=== PATIENT | female | born 1970 | race Caucasian/White ===

== ENCOUNTER → 2016-06-05 | Outpatient (REF) | payer OTHER ==
[~2016-06-05] MED LIST: /ADVA50050 INH; ALBU17IN INH; ATARAX PO; BACL10TA2 PO; BACT800T OR; CLIN75CA TD; COMBAER6 INH; CYCL5TA PO; DEXI60CA PO; DOXY75CA3 PO; FLUC150T PO; FOLI1TAB PO; FOSI10TA PO; GABA-283 PO; GEMF600T PO; GLUC1000 PO; GLUC850T PO; HYDR25TA6 PO; K-TA1TAB PO; KEFL500C7 PO; KLOR10TA PO; LASI20TA PO; LASI80TA PO; LIDO3CRE14 TD; MOBI15TA PO; NEUR100C PO; NIZO2SHA TD; OMEP20TA7 PO; PRED20TA PO; ROBA500T PO; ROBA750T4 PO; SIMV40TA2 PO; SING10TA31 PO; SPIR25TA2 PO; TIZA1POW PO; TRAM50TA2 PO; TRAZ50TA PO; TRIA25CR TOP; VESI10TA PO; [UNRECOGNIZED DRUG - OTHER] PO; flexeril PO
[2016-06-05 12:43] LABS: ANION GAP 8 MEQ/L (8-16); BLOOD UREA NITROGEN 11 MG/DL (7-18); CALCIUM LEVEL 8.8 MG/DL (8.5-10.1); CARBON DIOXIDE LEVEL 29 MEQ/L (21-32); CHLORIDE LEVEL 101 MEQ/L (98-107); CREATININE FOR GFR 0.65 MG/DL (0.55-1.02); GLOMERULAR FILTRATION RATE > 60.0 (>58); GLUCOSE, FASTING 197 MG/DL (70-105); POTASSIUM SERUM 4.4 MEQ/L (3.5-5.1); SODIUM LEVEL 138 MEQ/L (136-145)
== END ==
LOC: M SFHCPLAZ 08:43
PROVIDERS: ATTEND Physician Assistant Medical
DX: E11.69 Type 2 diabetes mellitus with other specified complication (principal)

== ENCOUNTER → 2016-08-16 | Outpatient (REF) | payer OTHER ==
[~2016-08-16] MED LIST changes: +INVO100T PO
[2016-08-16 14:00] LABS: ANION GAP 10 MEQ/L (8-16); BLOOD UREA NITROGEN 12 MG/DL (7-18); CALCIUM LEVEL 8.5 MG/DL (8.5-10.1); CARBON DIOXIDE LEVEL 26 MEQ/L (21-32); CHLORIDE LEVEL 103 MEQ/L (98-107); GLOMERULAR FILTRATION RATE > 60.0 (>58); GLUCOSE, FASTING 166 MG/DL (70-105); POTASSIUM SERUM 4.1 MEQ/L (3.5-5.1); SODIUM LEVEL 139 MEQ/L (136-145)
== END ==
LOC: M SFHCPLAZ 09:07
PROVIDERS: ATTEND Physician Assistant Medical
DX: E11.69 Type 2 diabetes mellitus with other specified complication (principal)

== ENCOUNTER 2016-08-20 16:04 | Emergency (ER) | payer OTHER ==
[~2016-08-20] VITALS: Ht 160 cm; Wt 126.1 kg
[~2016-08-20 16:04] MED LIST changes: -INVO100T PO
[2016-08-20] MEDS ORDERED: INVO100T PO (16:19)
[2016-08-20 18:49] VITALS: BP 124/64
== END 2016-08-20 19:02 | disposition home or self-care (01) ==
LOC: M ED 17:15
DX: L73.2 Hidradenitis suppurativa (principal); G43.909 Migraine, unspecified, not intractable, without status migrainosus; R07.9 Chest pain, unspecified; E78.00 Pure hypercholesterolemia, unspecified; I10 Essential (primary) hypertension; J45.909 Unspecified asthma, uncomplicated; G47.30 Sleep apnea, unspecified; K21.9 Gastro-esophageal reflux disease without esophagitis; E11.9 Type 2 diabetes mellitus without complications; Z79.899 Other long term (current) drug therapy; Z88.8 Allergy status to other drugs, medicaments and biological substances; Z79.84 Long term (current) use of oral hypoglycemic drugs

== ENCOUNTER → 2016-08-20 | Outpatient (REF) | payer OTHER | LOC: M SFHCPLAZ 14:53 | PROVIDERS: ATTEND Physician Assistant Medical | DX: L73.2 Hidradenitis suppurativa (principal) ==

== ENCOUNTER → 2016-08-29 | Outpatient (CLI) | payer OTHER ==
[~2016-08-29] MED LIST changes: +INVO100T PO
--- NOTE | 2016-08-29 14:09 | REP ---
Clinical: Evaluate abscesses. Technique: Real time sandoval scale ultrasound examination using linear high frequency transducer Findings: Directed ultrasound examination of the left axillary region demonstrates to lymph nodes measuring 19 x 9 mm and 12 x 12 mm. Small cutaneous cystic lesions are identified measuring 4 x 2 x 4 mm and 3 x 3 x 2 mm along with an elongated complex/hypoechoic presumed collection measuring 30 x 10 x 4 mm. Impression: Cystic and hypoechoic areas described above may represent small abscesses and correlation with physical examination is recommended. Differential diagnosis includes infected sebaceous cysts or hair follicles. Signed by Amandeep Beckford MD 08/29/2016 02:01 P
== END ==
LOC: M RAD 10:53
PROVIDERS: ATTEND Physician Assistant Medical
DX: L73.2 Hidradenitis suppurativa (principal)

== ENCOUNTER → 2016-08-30 | Outpatient (REF) | payer OTHER | LOC: M SFHCPLAZ 14:18 | PROVIDERS: ATTEND Physician Assistant Medical | DX: L73.2 Hidradenitis suppurativa (principal) ==

== ENCOUNTER 2016-09-16 20:31 | Emergency (ER) | payer OTHER ==
[~2016-09-16] VITALS: Ht 157.5 cm; Wt 122.9 kg
[2016-09-16] MEDS ORDERED: COMBAER6 INH (20:51)
[2016-09-16] MEDS ORDERED: ARNU1INH IN (20:51)
[2016-09-16] MEDS ORDERED: SPIR25TA2 PO (20:51)
[2016-09-16] MEDS ORDERED: POTA20TA FT (20:51)
[2016-09-16] MEDS ORDERED: AMLO10TA2 PO (20:51)
[2016-09-16] MEDS ORDERED: ALOG6.25 PO (20:51)
[2016-09-16] MEDS ORDERED: CLAR1TAB2 PO (20:51)
[2016-09-16] MEDS ORDERED: ATOR40TA PO (20:51)
[2016-09-16] MEDS ORDERED: CELE20TA PO (20:51)
[2016-09-16] MEDS ORDERED: LISI-542 PO (20:51)
[2016-09-16] MEDS ORDERED: NORCO, ANEXSIA 5/325MG TABLET (HYDROcodone/ACETAMINOPHEN) PO ONE (21:30)
[2016-09-16] MEDS ORDERED: HYDR-3713 PO (22:04)
[2016-09-16 22:06] VITALS: BP 147/71
--- NOTE | 2016-09-18 07:55 | REP ---
Clinical: Trauma and swelling. Technique: AP, lateral, bilateral oblique and sunrise views of the left knee. Findings: Lateral view suggests patella or the with possible effusion. Clinical correlation is recommended. Unfused chronic changes to the tibial tuberosity are suggested less likely reflecting acute avulsion fracture and correlation is required. No other fracture dislocation identified or suggested. Impression: Acute and/or chronic changes as described above require correlation. Signed by Amandeep Beckford MD 09/18/2016 07:46 A
== END 2016-09-16 22:11 | disposition home or self-care (01) ==
LOC: M ED 21:20
DX: S83.512A Sprain of anterior cruciate ligament of left knee, initial encounter (principal); X50.0XXA Overexertion from strenuous movement or load, initial encounter; Y92.89 Other specified places as the place of occurrence of the external cause; Y93.89 Activity, other specified; Y99.8 Other external cause status; I50.9 Heart failure, unspecified; I10 Essential (primary) hypertension; J45.909 Unspecified asthma, uncomplicated; E11.9 Type 2 diabetes mellitus without complications; E78.00 Pure hypercholesterolemia, unspecified; G47.30 Sleep apnea, unspecified; G43.909 Migraine, unspecified, not intractable, without status migrainosus; Z79.899 Other long term (current) drug therapy; Z79.84 Long term (current) use of oral hypoglycemic drugs; Z88.8 Allergy status to other drugs, medicaments and biological substances; Z91.048 Other nonmedicinal substance allergy status; F17.210 Nicotine dependence, cigarettes, uncomplicated

== ENCOUNTER → 2016-09-19 | Outpatient (REF) | payer OTHER ==
[~2016-09-19] MED LIST changes: +ALOG6.25 PO; +AMLO10TA2 PO; +ARNU1INH IN; +ATOR40TA PO; +CELE20TA PO; +CLAR1TAB2 PO; +HYDR-3713 PO; +LISI-542 PO; +POTA20TA FT
== END ==
LOC: M SFHCPLAZ 11:30
PROVIDERS: ATTEND Physician Assistant Medical
DX: L73.2 Hidradenitis suppurativa (principal)

== ENCOUNTER → 2016-09-24 | Outpatient (CLI) | payer OTHER ==
--- NOTE | 2016-09-24 20:53 | REP ---
MRI LEFT KNEE: TECHNIQUE: Axial proton density fat saturation, sagittal proton density T2 STIR, water excitation, coronal proton density, proton density fat saturation. FINDINGS: There is degenerative signal seen in the posterior horn of the medial meniscus without a discrete tear. The cruciate and collateral ligaments are intact. The extensor mechanism is intact. The medial and lateral patellar retinacula are intact. Oval accessory ossicle was seen at the anterior tibial tubercle without acute edema. There is a suprapatellar plica. There is a small joint effusion. There is a small popliteal cyst, which appears somewhat complex and measures between 1 and 2 cm in diameter. Moderate chondromalacia is seen at the posterior aspect of the medial femoral condyle with mild subchondral cystic changes. There is mild diffuse chondromalacia elsewhere in the medial and lateral compartments. There is no bone marrow edema or occult fracture. There is a benign bone island in the lateral femoral condyle posteriorly. There is mild ill-defined diffuse soft tissue edema more superficially. IMPRESSION: Degenerative signal in the posterior horn of the medial meniscus without a meniscal tear. Cruciate and collateral ligaments intact. Accessory ossicle anterior tibial tubercle without acute edema. Moderate chondromalacia posterior aspect of the medial femoral condyle with subchondral cystic changes. Otherwise, mild diffuse chondromalacia in the medial and lateral joint compartments. There is a small joint effusion. There is a suprapatellar plica. There is a small popliteal cyst. Signed by Juan Madden MD 09/25/2016 05:22 P
== END ==
LOC: M RAD 18:24
PROVIDERS: ATTEND Orthopaedic Surgery
DX: M94.262 Chondromalacia, left knee (principal); M25.462 Effusion, left knee; M67.52 Plica syndrome, left knee; M71.22 Synovial cyst of popliteal space [Baker], left knee

== ENCOUNTER → 2017-01-24 | Outpatient (REF) | payer MEDICAID, OTHER ==
[~2017-01-24] MED LIST changes: -ATOR40TA PO; +ATOR40TA75 PO; -DEXI60CA PO; +DEXI60CA2 PO; +KEFL500C17 PO; -KEFL500C7 PO; -VESI10TA PO; +VESI10TA2 PO
== END ==
LOC: M SFHCPLAZ 12:56
PROVIDERS: ATTEND Physician Assistant Medical
DX: L73.2 Hidradenitis suppurativa (principal)

== ENCOUNTER → 2017-02-01 | Outpatient (CLI) | payer OTHER ==
--- NOTE | 2017-02-01 14:47 | REP ---
Chest x-ray: Two views. History: Neck pain . Comparison study: October 15, 2015 . Findings: The lungs are well inflated and free of infiltrate. The pleural angles are sharp. The heart size is normal. Pulmonary vasculature is not increased. No significant bony abnormality is seen. Impression: Negative chest x-ray. Signed by Franck Peñaloza MD 02/01/2017 11:10 A
== END ==
LOC: M RAD 10:41
PROVIDERS: ATTEND Physician Assistant Medical
DX: M54.2 Cervicalgia (principal); R07.81 Pleurodynia

== ENCOUNTER → 2017-02-28 | Outpatient (CLI) | payer OTHER ==
--- NOTE | 2017-03-01 00:43 | REP ---
Clinical: Cervicalgia . Technique: AP, lateral, flexion/extension, bilateral oblique, and open-mouth views. Findings: Alignment and lordosis is maintained. There is no evidence for acute fracture / compression injury or subluxation. Mild focal degenerative changes including spurring and minimal disc space narrowing at the C5-6 and C6-7 levels suggested. Oblique views demonstrate patent neural foramen. Open mouth view demonstrates normal C1-C2 articulation and odontoid process. Impression: Mild focal degenerative changes at the C6-7 and C5-6 levels. Signed by Aamndeep Beckford MD 03/01/2017 12:35 A
== END ==
LOC: M SMT 10:37
PROVIDERS: ATTEND Physician Assistant Medical
DX: M54.2 Cervicalgia (principal)

== ENCOUNTER 2017-03-30 23:01 | Emergency (ER) | payer OTHER ==
[~2017-03-30] VITALS: Ht 160 cm; Wt 54.2 kg
[2017-03-31] MEDS ORDERED: PERCOCET 5MG/325MG TAB PO ONE (00:15)
[2017-03-31 01:34] VITALS: BP 127/67
--- NOTE | 2017-03-31 14:29 | REP ---
Bilateral knee series: Five views. History: Injury. Findings: Five views are obtained. Four views of each knee. Comparison left knee radiographs are from September 16, 2016. 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 There is no evidence of knee fracture or subluxation on either side. Impression: No fracture seen. Signed by Franck Peñaloza MD 03/31/2017 08:08 A
== END 2017-03-31 01:44 | disposition home or self-care (01) ==
LOC: EDBD 23:01 → M ED 23:01
DX: M25.561 Pain in right knee (principal); M25.562 Pain in left knee; Z72.0 Tobacco use

== ENCOUNTER → 2017-05-20 | Outpatient (REF) | payer OTHER ==
[2017-05-20 11:46] LABS: BASO % 0.5 % (0.0-1.0); EOS # 0.2 10^3/uL (0.0-0.50); EOS % 2.3 % (0.0-3.0); IMMATURE GRANULOCYTE % 0.5 % (0-0); LYMPH # 2.8 10^3/uL (1.5-4.5); LYMPH % 32.6 % (24.0-44.0); MEAN CORPUSCULAR HEMOGLOBIN 30.5 pg (27.0-33.0); MEAN CORPUSCULAR VOLUME 92.3 fl (80.0-96.0); MONO # 0.7 10^3/uL (0.0-0.8); MONO % 8.3 % (0.0-5.0); NEUTROPHILS # 4.7 10^3/uL (1.8-7.7); NEUTROPHILS % 55.8 % (36.0-66.0); PLATELET COUNT, AUTOMATED 277 10^3/uL (150-450); WHITE BLOOD COUNT 8.4 10^3/uL (4.0-10.0)
[2017-05-20 12:26] LABS: ALBUMIN 3.4 GM/DL (3.2-5.2); ALBUMIN/GLOBULIN RATIO 0.97 (1.00-1.93); ALKALINE PHOSPHATASE 83 U/L (45-117); ALT/SGPT 35 U/L (12-78); ANION GAP 7 MEQ/L (8-16); AST/SGOT 14 U/L (7-37); BILIRUBIN,TOTAL 0.3 MG/DL (0.2-1.0); BLOOD UREA NITROGEN 17 MG/DL (7-18); CALCIUM LEVEL 8.5 MG/DL (8.5-10.1); CARBON DIOXIDE LEVEL 29 MEQ/L (21-32); CHLORIDE LEVEL 101 MEQ/L (98-107); CHOLESTEROL LEVEL 222 MG/DL (<200); CREATININE FOR GFR 0.58 MG/DL (0.55-1.02); FREE T4 0.91 NG/DL (0.76-1.46); GLOMERULAR FILTRATION RATE > 60.0 (>58); GLUCOSE, FASTING 162 MG/DL (70-105); POTASSIUM SERUM 4.3 MEQ/L (3.5-5.1); SODIUM LEVEL 137 MEQ/L (136-145); TOTAL PROTEIN 6.9 GM/DL (6.4-8.2); TRIGLYCERIDES LEVEL 199 MG/DL (<150)
== END ==
LOC: M SFHCPLAZ 09:25
PROVIDERS: ATTEND Physician Assistant Medical
DX: L73.2 Hidradenitis suppurativa (principal); E78.2 Mixed hyperlipidemia; I10 Essential (primary) hypertension

== ENCOUNTER → 2017-08-27 | Outpatient (REF) | payer OTHER | LOC: M SFHCPLAZ 11:37 | DX: L02.91 Cutaneous abscess, unspecified (principal) | CPT/HCPCS: 87186 ==

== ENCOUNTER 2017-08-28 15:53 | Emergency (ER) | payer OTHER ==
[2017-08-28 16:22] LABS: BASO % 0.5 % (0.0-1.0); EOS % 0.7 % (0.0-3.0); HEMATOCRIT 43.7 % (36.0-47.0); HEMOGLOBIN 14.9 g/dl (12.0-16.0); IMMATURE GRANULOCYTE % 0.5 % (0-3.0); LYMPH # 0.9 10^3/uL (1.5-4.5); LYMPH % 15.1 % (24.0-44.0); MEAN CORPUSCULAR HEMOGLOBIN 31.2 pg (27.0-33.0); MEAN CORPUSCULAR HGB CONC 34.1 g/dl (32.0-36.5); MEAN CORPUSCULAR VOLUME 91.4 fl (80.0-96.0); MONO # 0.7 10^3/uL (0.0-0.8); MONO % 10.9 % (0.0-5.0); NEUTROPHILS # 4.4 10^3/uL (1.8-7.7); NEUTROPHILS % 72.3 % (36.0-66.0); PLATELET COUNT, AUTOMATED 189 10^3/uL (150-450); RED BLOOD COUNT 4.78 10^6/uL (4.00-5.40); RED CELL DISTRIBUTION WIDTH 13.4 % (11.5-14.5)
[2017-08-28 16:53] LABS: ALBUMIN 3.6 GM/DL (3.2-5.2); ALBUMIN/GLOBULIN RATIO 1.03 (1.00-1.93); ALKALINE PHOSPHATASE 93 U/L (45-117); ALT/SGPT 69 U/L (12-78); ANION GAP 7 MEQ/L (8-16); AST/SGOT 48 U/L (7-37); BILIRUBIN,DIRECT < 0.1 MG/DL (0.0-0.2); BILIRUBIN,TOTAL 0.3 MG/DL (0.2-1.0); BLOOD UREA NITROGEN 10 MG/DL (7-18); CALCIUM LEVEL 8.4 MG/DL (8.5-10.1); CARBON DIOXIDE LEVEL 29 MEQ/L (21-32); CHLORIDE LEVEL 102 MEQ/L (98-107); CPK CREATINE PHOSPHOKINASE 216 U/L (26-192); CREATININE FOR GFR 0.73 MG/DL (0.55-1.30); GLOMERULAR FILTRATION RATE > 60.0 (>58); GLUCOSE, FASTING 168 MG/DL (70-100); LIPASE 101 U/L (73-393); POTASSIUM SERUM 4.1 MEQ/L (3.5-5.1); SODIUM LEVEL 138 MEQ/L (136-145); TOTAL PROTEIN 7.1 GM/DL (6.4-8.2); TROPONIN I < 0.02 NG/ML (< 0.10)
[2017-08-28 16:59] LABS: CK-MB VALUE MASS < 1.0 NG/ML (<3.6); MB/CK RELATIVE INDEX 0.46 (< OR =4); NT-PRO BNP 20 PG/ML (<125)
[2017-08-28 17:14] LABS: LACTIC ACID SEPSIS PROTOCOL 1.6 MMOL/L (0.4-2.0)
[2017-08-28] MEDS: IPRATROPIUM 0.5MG/ALBUTEROL 2.5MG INH SOL UD 3ML (DUONEB)(J7620) NEB (17:37)
[2017-08-28] MEDS: methylPREDNISolone INJ 125 MG/2 ML VIAL (J2930) IV (17:47)
[2017-08-28] MEDS: ALBUTEROL SULFATE 2.5 MG/0.5 ML INH NEB SOLN NEB (18:11)
[2017-08-28] MEDS: ACETAMINOPHEN 325 MG TAB PO (18:15)
[2017-08-28] MEDS: NS 1,000 ML IV (18:45)
[2017-08-28 19:09] LABS: INFLUENZA A AMPLIFICATION NEGATIVE (NEGATIVE); INFLUENZA B AMPLIFICATION POSITIVE (NEGATIVE)
[2017-08-28 22:36] LABS: CK-MB VALUE MASS < 1.0 NG/ML (<3.6); CPK CREATINE PHOSPHOKINASE 193 U/L (26-192); MB/CK RELATIVE INDEX 0.51 (< OR =4); TROPONIN I < 0.02 NG/ML (< 0.10)
== END 2017-08-29 00:26 | disposition home or self-care (01) ==
LOC: M ED 08-29 00:26
DX: J45.909 Unspecified asthma, uncomplicated (principal); J11.1 Influenza due to unidentified influenza virus with other respiratory manifestations; E11.9 Type 2 diabetes mellitus without complications; I10 Essential (primary) hypertension; E78.5 Hyperlipidemia, unspecified; G47.30 Sleep apnea, unspecified; F17.200 Nicotine dependence, unspecified, uncomplicated; Z88.8 Allergy status to other drugs, medicaments and biological substances; Z79.84 Long term (current) use of oral hypoglycemic drugs; Z79.899 Other long term (current) drug therapy; Z79.51 Long term (current) use of inhaled steroids
CPT/HCPCS: J2930

== ENCOUNTER → 2017-09-03 | Outpatient (REF) | payer OTHER ==
[2017-09-03 12:02] LABS: BASO % 0.2 % (0.0-1.0); EOS # 0.1 10^3/uL (0.0-0.50); EOS % 1.1 % (0.0-3.0); HEMATOCRIT 40.7 % (36.0-47.0); HEMOGLOBIN 13.8 g/dl (12.0-15.5); IMMATURE GRANULOCYTE % 0.9 % (0-3.0); LYMPH # 2.6 10^3/uL (1.5-4.5); LYMPH % 28.6 % (24.0-44.0); MEAN CORPUSCULAR HEMOGLOBIN 30.7 pg (27.0-33.0); MEAN CORPUSCULAR HGB CONC 33.9 g/dl (32.0-36.5); MEAN CORPUSCULAR VOLUME 90.4 fl (80.0-96.0); MONO # 0.6 10^3/uL (0.0-0.8); MONO % 6.3 % (0.0-5.0); NEUTROPHILS # 5.6 10^3/uL (1.8-7.7); NEUTROPHILS % 62.9 % (36.0-66.0); PLATELET COUNT, AUTOMATED 243 10^3/uL (150-450); RED CELL DISTRIBUTION WIDTH 13.1 % (11.5-14.5)
[2017-09-03 12:12] LABS: INR 0.84; PROTHROMBIN TIME 11.5 SECONDS (12.4-14.5)
[2017-09-03 12:13] LABS: PARTIAL THROMBOPLASTIN TIME 30.3 SECONDS (26.8-37.9)
== END ==
LOC: M SFHCPLAZ 09:40
DX: R58 Hemorrhage, not elsewhere classified (principal)

== ENCOUNTER → 2017-12-17 | Outpatient (CLI) | payer OTHER ==
[2017-12-17 11:13] LABS: ALBUMIN 3.3 GM/DL (3.2-5.2); ALBUMIN/GLOBULIN RATIO 0.94 (1.00-1.93); ALKALINE PHOSPHATASE 86 U/L (45-117); ALT/SGPT 47 U/L (12-78); ANION GAP 7 MEQ/L (8-16); AST/SGOT 24 U/L (7-37); BILIRUBIN,TOTAL 0.3 MG/DL (0.2-1.0); BLOOD UREA NITROGEN 12 MG/DL (7-18); CALCIUM LEVEL 8.3 MG/DL (8.5-10.1); CARBON DIOXIDE LEVEL 27 MEQ/L (21-32); CHLORIDE LEVEL 106 MEQ/L (98-107); CHOLESTEROL LEVEL 222 MG/DL (<200); CREATININE FOR GFR 0.61 MG/DL (0.55-1.30); GLOMERULAR FILTRATION RATE > 60.0 (>58); GLUCOSE, FASTING 207 MG/DL (70-100); HDL CHOLESTEROL 37 MG/DL (>40); NON-HDL-C 185 MG/DL; POTASSIUM SERUM 4.2 MEQ/L (3.5-5.1); SODIUM LEVEL 140 MEQ/L (136-145); TOTAL PROTEIN 6.8 GM/DL (6.4-8.2); TRIGLYCERIDES LEVEL 300 MG/DL (<150)
[2017-12-17 11:32] LABS: ESTIMATED AVERAGE GLUCOSE 192 MG/DL (60-110); HEMOGLOBIN A1c 8.3 %
[2017-12-17 11:40] LABS: MAU/CREAT RATIO 202.5 MCG/MG (0.0-30.0)
== END ==
LOC: M LAB 10:06
DX: I10 Essential (primary) hypertension (principal); E78.2 Mixed hyperlipidemia; E11.69 Type 2 diabetes mellitus with other specified complication
CPT/HCPCS: 80053

== ENCOUNTER → 2018-07-10 | Outpatient (REF) | payer OTHER ==
[~2018-07-10] MED LIST changes: +ALBU83IN INH; -AMLO10TA2 PO; +AMLO10TA5 PO; +BREO1INH INH; -GABA-283 PO; +GABA-845 PO; -GEMF600T PO; +GEMF600T5 PO; +KLOR20TA42 FT; +NEBUMIS2 XX; +OSEL75CA PO; -POTA20TA FT; +SPIR-10 PO; -SPIR25TA2 PO
[2018-07-10 13:43] LABS: BASO % 0.2 % (0.0-1.0); EOS # 0.2 10^3/uL (0.0-0.50); EOS % 2.2 % (0.0-3.0); HEMATOCRIT 46.5 % (36.0-47.0); HEMOGLOBIN 16.1 g/dl (12.0-15.5); LYMPH # 2.8 10^3/uL (1.5-4.5); LYMPH % 32.1 % (24.0-44.0); MEAN CORPUSCULAR HEMOGLOBIN 31.4 pg (27.0-33.0); MEAN CORPUSCULAR HGB CONC 34.6 g/dl (32.0-36.5); MEAN CORPUSCULAR VOLUME 90.8 fl (80.0-96.0); MONO # 0.6 10^3/uL (0.0-0.8); MONO % 6.6 % (0.0-5.0); NEUTROPHILS % 58.2 % (36.0-66.0); PLATELET COUNT, AUTOMATED 277 10^3/uL (150-450); RED BLOOD COUNT 5.12 10^6/uL (4.00-5.40); WHITE BLOOD COUNT 8.6 10^3/uL (4.0-10.0)
[2018-07-10 13:57] LABS: APPEARANCE, URINE HAZY (CLEAR); BACTERIA, URINE AUTO NEGATIVE (NEGATIVE); BILIRUBIN, URINE AUTO NEGATIVE (NEGATIVE); BLOOD, URINE BLOOD NEGATIVE (NEGATIVE); COLOR, URINE YELLOW (YELLOW); GLUCOSE, URINE (UA) AUTO 3+ mg/dL (NEGATIVE); KETONE, URINE AUTO NEGATIVE (NEGATIVE); LEUKOCYTE ESTERASE, URINE AUTO NEGATIVE (NEGATIVE); MUCUS, URINE SMALL (NEGATIVE); NITRITE, URINE AUTO NEGATIVE (NEGATIVE); PROTEIN, URINE AUTO 2+ mg/dL (NEGATIVE); RBC, URINE AUTO 6 /HPF (0-3); SPECIFIC GRAVITY URINE AUTO 1.032 (1.002-1.035); SQUAMOUS EPITHELIAL CELL UR AU 8 /HPF (0-6); UROBILINOGEN, URINE AUTO 0.2 mg/dL (0.0-2.0); WBC, URINE AUTO 2 /HPF (0-3)
[2018-07-10 14:06] LABS: HEMOGLOBIN A1c 10.6 %
[2018-07-10 14:21] LABS: ALBUMIN 3.3 GM/DL (3.2-5.2); ALT/SGPT 43 U/L (12-78); BILIRUBIN,TOTAL 0.4 MG/DL (0.2-1.0); BLOOD UREA NITROGEN 10 MG/DL (7-18); CALCIUM LEVEL 8.3 MG/DL (8.5-10.1); CARBON DIOXIDE LEVEL 27 MEQ/L (21-32); CHLORIDE LEVEL 99 MEQ/L (98-107); CREATININE FOR GFR 0.58 MG/DL (0.55-1.30); FREE T4 0.95 NG/DL (0.76-1.46); GLOMERULAR FILTRATION RATE > 60.0 (>58); GLUCOSE, FASTING 296 MG/DL (70-100); POTASSIUM SERUM 4.5 MEQ/L (3.5-5.1); SODIUM LEVEL 135 MEQ/L (136-145); TOTAL PROTEIN 6.7 GM/DL (6.4-8.2)
[2018-07-10 14:29] LABS: MAU/CREAT RATIO 446.8 MCG/MG (0.0-30.0)
== END ==
LOC: M SFHCPLAZ 12:10
PROVIDERS: ATTEND Physician Assistant Medical
DX: E66.9 Obesity, unspecified (principal); E11.69 Type 2 diabetes mellitus with other specified complication; L73.2 Hidradenitis suppurativa

== ENCOUNTER → 2018-07-21 | Outpatient (REF) | payer OTHER ==
[2018-07-21 16:36] LABS: BLOOD UREA NITROGEN 9 MG/DL (7-18); CALCIUM LEVEL 8.6 MG/DL (8.5-10.1); CARBON DIOXIDE LEVEL 26 MEQ/L (21-32); CHLORIDE LEVEL 101 MEQ/L (98-107); CREATININE FOR GFR 0.61 MG/DL (0.55-1.30); GLOMERULAR FILTRATION RATE > 60.0 (>58); GLUCOSE, FASTING 245 MG/DL (70-100); MAGNESIUM LEVEL 1.8 MG/DL (1.8-2.4); POTASSIUM SERUM 4.3 MEQ/L (3.5-5.1); SODIUM LEVEL 136 MEQ/L (136-145)
== END ==
LOC: M LABDRAWP 13:20
PROVIDERS: ATTEND Physician Assistant Medical
DX: E87.1 Hypo-osmolality and hyponatremia (principal)

== ENCOUNTER → 2018-08-14 | Outpatient (CLI) | payer OTHER ==
--- NOTE | 2018-08-14 12:56 | REPMRS ---
Patient History The patient states she had a clinical breast exam in 08/2018.07/22 Family history of ovarian cancer in mother, breast cancer at age 50 in maternal aunt. Digital Woman Screen Mammo: August 14, 2018 - Exam #: [id number] Bilateral CC and MLO view(s) were taken. Technologist: Diane Walden, Technologist Prior study comparison: May 18, 2014, bilateral digital mammo screening bilat, performed at [facility]. FINDINGS: There are scattered fibroglandular densities. There has been no change in the appearance of the mammogram from the prior studies. There is a mild amount of residual fibroglandular tissue which is fairly symmetric. There is no interval development of dominant mass, architectural distortion, or clustered microcalcification suggestive of malignancy. There are two benign appearing intramammary nodes in the upper outer quadrant of the right breast. Scattered lymph nodes are seen in the axillae. Large coarse benign appearing calcifications are present. 3-D tomosynthesis shows no additional findings. No significant changes when compared with prior studies. Assessment: BI-RADS/ACR category 2 mammogram. Benign Findings. Recommendation Routine screening mammogram in 1 year (for women over age 40). This mammogram was interpreted with the aid of an FDA-approved computer-aided dectection system. A. Negative x-ray reports should not delay biopsy if a dominant or clinically suspicious mass is present. B. Four to eight percent of cancers are not identified by mammography. C. Adenosis and dense breast may obscure an underlying neoplasm. Electronically Signed By: Pito Son MD 08/14/18 [id number]
== END ==
LOC: M WHC 09:23
PROVIDERS: ATTEND Family Medicine
DX: Z12.31 Encounter for screening mammogram for malignant neoplasm of breast (principal)

== ENCOUNTER → 2018-10-14 | Outpatient (CLI) | payer OTHER ==
[~2018-10-14] MED LIST changes: -/ADVA50050 INH; +ADVA1AER2 INH; -CYCL5TA PO; +CYCL5TAB5 PO
--- NOTE | 2018-10-15 01:59 | REP ---
Clinical: Neck pain. Muscle spasm. Technique: AP, lateral, flexion/extension, bilateral oblique, open-mouth, and swimmer's views of the cervical spine. Findings: Mild/moderate focal degenerative disc osteophyte complex at C6-7 and C5-6 minimal disc space narrowing. Remainder of the examination is normal for age. C1-C2 articulation and odontoid process are intact. Neural foramen are patent. Impression: Mild/early moderate focal degenerative changes at C6-7 and lesser C5-6. Electronically Signed by Amandeep Beckford MD 10/15/2018 01:51 A
== END ==
LOC: M RAD 12:11
PROVIDERS: ATTEND Physician Assistant Medical
DX: M25.78 Osteophyte, vertebrae (principal); M50.323 Other cervical disc degeneration at C6-C7 level; M50.322 Other cervical disc degeneration at C5-C6 level

== ENCOUNTER → 2018-11-14 | Outpatient (CLI) | payer OTHER ==
[~2018-11-14] MED LIST changes: +BACL10TA2; +BASA100I; +BREO1INH3; +CITA20TA6; +FURO80TA2; +GABA-843; +LISI10TA4; +METF500T13; +MONT10TA2
--- NOTE | 2018-11-18 07:57 | SLEEPCENT ---
DATE OF PROCEDURE: 11/14/2018 ORDERED BY: KEIKO Myrick Nocturnal polysomnography was performed for the titration of pressure therapy in this patient with obstructive sleep apnea syndrome. Apnea-hypopnea index of 21.3. For testing, a [employer] Simplus full face mask of small size was used, initial pressure of 12 was applied to the circuit and the lights were extinguished. 8 hours and 10 minutes of data were reviewed. There were 418 minutes of sleep identified. Sleep latency was normal at 14.5 minutes. Rapid eye movement (REM) latency was mildly delayed at 130.5 minutes. Sleep architecture was improved with optimal pressure therapy. There were four REM cycles noted. Overall sleep efficiency was 86.9%. The electrocardiogram showed a sinus rhythm with an average heart rate of 82 beats per minute. EEG showed reasonably normal waveforms for awake and sleep. Respiratory events were best palliated with CPAP at a pressure of +16. There was some activity noted in the limb leads but arousals were few. IMPRESSION: Obstructive sleep apnea syndrome (G47.33). RECOMMENDATION: Nightly use of pressure therapy, 16 cm of water.
== END ==
LOC: M SLEEP 20:00
PROVIDERS: ATTEND Nurse Practitioner Family
DX: G47.33 Obstructive sleep apnea (adult) (pediatric) (principal)

== ENCOUNTER → 2018-11-28 | Outpatient (REF) | payer OTHER ==
[~2018-11-28] MED LIST changes: -BACL10TA2; -BASA100I; -BREO1INH3; -CITA20TA6; -FURO80TA2; -GABA-843; -LISI10TA4; -METF500T13; -MONT10TA2
[2018-11-28 12:16] LABS: BASO % 0.4 % (0.0-1.0); EOS # 0.8 10^3/uL (0.0-0.50); EOS % 10.2 % (0.0-3.0); HEMATOCRIT 43.9 % (36.0-47.0); HEMOGLOBIN 14.7 g/dl (12.0-15.5); LYMPH # 2.2 10^3/uL (1.5-4.5); LYMPH % 27.6 % (24.0-44.0); MEAN CORPUSCULAR HEMOGLOBIN 31.5 pg (27.0-33.0); MEAN CORPUSCULAR HGB CONC 33.5 g/dl (32.0-36.5); MONO # 0.6 10^3/uL (0.0-0.8); MONO % 7.6 % (0.0-5.0); NEUTROPHILS # 4.4 10^3/uL (1.8-7.7); NEUTROPHILS % 53.6 % (36.0-66.0); PLATELET COUNT, AUTOMATED 248 10^3/uL (150-450); RED BLOOD COUNT 4.67 10^6/uL (4.00-5.40); WHITE BLOOD COUNT 8.1 10^3/uL (4.0-10.0)
[2018-11-28 12:32] LABS: ALBUMIN 3.3 GM/DL (3.2-5.2); ALT/SGPT 39 U/L (12-78); BILIRUBIN,TOTAL 0.3 MG/DL (0.2-1.0); BLOOD UREA NITROGEN 12 MG/DL (7-18); CALCIUM LEVEL 8.7 MG/DL (8.5-10.1); CARBON DIOXIDE LEVEL 28 MEQ/L (21-32); CHLORIDE LEVEL 103 MEQ/L (98-107); CHOLESTEROL LEVEL 142 MG/DL (<200); CHOLESTEROL RISK RATIO 4.057 (<5); CPK CREATINE PHOSPHOKINASE 72 U/L (26-192); CREATININE FOR GFR 0.62 MG/DL (0.55-1.30); FERRITIN 158 NG/ML (8-252); FREE T4 1.02 NG/DL (0.76-1.46); GLOMERULAR FILTRATION RATE > 60.0 (>58); GLUCOSE, FASTING 201 MG/DL (70-100); HDL CHOLESTEROL 35 MG/DL (>40); IRON (FE) 82 UG/DL (50-170); LDL CHOLESTEROL 74 MG/DL (<100); NON-HDL-C 107 MG/DL; PERCENT SATURATION 26.5 % (13.2-45.0); SODIUM LEVEL 139 MEQ/L (136-145); TOTAL IRON BINDING CAPACITY 310 UG/DL (250-450); TOTAL PROTEIN 6.5 GM/DL (6.4-8.2); TRIGLYCERIDES LEVEL 164 MG/DL (<150)
[2018-11-28 12:57] LABS: HEMOGLOBIN A1c 8.8 %
== END ==
LOC: M SFHCPLAZ 09:06
PROVIDERS: ATTEND Physician Assistant Medical
DX: G25.81 Restless legs syndrome (principal); E78.2 Mixed hyperlipidemia; E11.69 Type 2 diabetes mellitus with other specified complication; F32.9 Major depressive disorder, single episode, unspecified

== ENCOUNTER 2018-12-23 23:10 | Emergency (ER) | payer OTHER, SELFPAY ==
[~2018-12-23] VITALS: Ht 160 cm; Wt 126.2 kg
[2018-12-23] MEDS ORDERED: CITA20TA6 (23:21)
[2018-12-23] MEDS ORDERED: LISI10TA4 (23:21)
[2018-12-23] MEDS ORDERED: FURO80TA2 (23:21)
[2018-12-23] MEDS ORDERED: BACL10TA2 (23:21)
[2018-12-23] MEDS ORDERED: METF500T13 (23:21)
[2018-12-23] MEDS ORDERED: BASA100I (23:21)
[2018-12-23] MEDS ORDERED: BREO1INH3 (23:21)
[2018-12-23] MEDS ORDERED: MONT10TA2 (23:21)
[2018-12-23] MEDS ORDERED: GABA-843 (23:21)
[2018-12-23] MEDS ORDERED: CELE20TA PO (23:21)
[2018-12-24] MEDS ORDERED: ACETAMINOPHEN 325 MG TAB PO ONE (00:45)
[2018-12-24 02:06] VITALS: BP 130/74
--- NOTE | 2018-12-24 03:24 | REP ---
Clinical: Trauma . Technique: AP, lateral, bilateral oblique views of the left elbow. Findings: No acute fracture or dislocation is appreciated. Joint spaces and surrounding soft tissues appear normal. Lateral view demonstrates normal positioning to the anterior and posterior fat pads without evidence for effusion/hemarthrosis. No subcutaneous emphysema or foreign body identified. Impression: Normal left elbow radiographs. Electronically Signed by Amandeep Beckford MD 12/24/2018 03:15 A
== END 2018-12-24 02:10 | disposition home or self-care (01) ==
LOC: M ED 23:10
DX: S53.402A Unspecified sprain of left elbow, initial encounter (principal); X50.1XXA Overexertion from prolonged static or awkward postures, initial encounter; Y92.89 Other specified places as the place of occurrence of the external cause; I11.0 Hypertensive heart disease with heart failure; I50.9 Heart failure, unspecified; E78.5 Hyperlipidemia, unspecified; J44.9 Chronic obstructive pulmonary disease, unspecified; F17.200 Nicotine dependence, unspecified, uncomplicated; Z88.8 Allergy status to other drugs, medicaments and biological substances; Z79.899 Other long term (current) drug therapy; Z79.84 Long term (current) use of oral hypoglycemic drugs; Z79.51 Long term (current) use of inhaled steroids

== ENCOUNTER 2019-03-05 18:22 | Emergency (ER) | payer MEDICAID, OTHER, SELFPAY ==
[~2019-03-05] VITALS: Ht 160 cm; Wt 126.4 kg
[~2019-03-05 18:22] MED LIST changes: -ARNU1INH IN; +ARNU1INH INH; +BASA100I; +BREO1INH3; +CITA20TA6; +FURO80TA2; +GABA-843; +LISI10TA4; +METF500T13; +MONT10TA2
[2019-03-05 19:03] LABS: BASO % 0.6 % (0.0-1.0); EOS # 0.1 10^3/uL (0.0-0.5); EOS % 1.1 % (0.0-3.0); HEMOGLOBIN 15.7 g/dl (12.0-15.5); LYMPH # 1.2 10^3/uL (1.5-5.0); LYMPH % 17.7 % (24.0-44.0); MEAN CORPUSCULAR HEMOGLOBIN 31.8 pg (27.0-33.0); MEAN CORPUSCULAR HGB CONC 34.1 g/dl (32.0-36.5); MEAN CORPUSCULAR VOLUME 93.1 fl (80.0-96.0); MONO # 0.7 10^3/uL (0.0-0.8); MONO % 10.4 % (0.0-5.0); NEUTROPHILS # 4.6 10^3/uL (1.5-8.5); NEUTROPHILS % 69.7 % (36.0-66.0); PLATELET COUNT, AUTOMATED 231 10^3/uL (150-450); RED BLOOD COUNT 4.94 10^6/uL (4.00-5.40); WHITE BLOOD COUNT 6.7 10^3/uL (4.0-10.0)
[2019-03-05] MEDS ORDERED: LANTINJ4 SQ (19:03)
--- NOTE | 2019-03-05 19:16 | ECGEPIP ---
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
[2019-03-05 19:30] LABS: BLOOD UREA NITROGEN 14 MG/DL (7-18); CALCIUM LEVEL 8.9 MG/DL (8.5-10.1); CARBON DIOXIDE LEVEL 26 MEQ/L (21-32); CHLORIDE LEVEL 103 MEQ/L (98-107); CK-MB VALUE MASS 1.1 NG/ML (<3.6); CPK CREATINE PHOSPHOKINASE 100 U/L (26-192); CREATININE FOR GFR 0.69 MG/DL (0.55-1.30); GLOMERULAR FILTRATION RATE > 60.0 (>58); GLUCOSE, FASTING 184 MG/DL (70-100); NT-PRO BNP 47 PG/ML (<125); POTASSIUM SERUM 4.1 MEQ/L (3.5-5.1); SODIUM LEVEL 136 MEQ/L (136-145); TROPONIN I < 0.02 NG/ML (< 0.10)
--- NOTE | 2019-03-05 19:58 | REP ---
Portable chest, 07:07 p.m., single AP view with the patient upright: Comparisons are the PA and lateral chest of 02/01/2017 and portable chest of 08/28/2017. There is increased density inferomedially in the right lung. This is nonspecific and could be artifact from superimposed clothing or could represent an infiltrate. The remainder the lung horner are clear. Cardiac size is normal. The wander, mediastinum, skeletal structures are. Impression: Non specific increased density inferomedially in the right lung. Electronically Signed by Juan Jeff MD 03/05/2019 07:49 P
[2019-03-05] MEDS ORDERED: IPRATROPIUM 0.5MG/ALBUTEROL 2.5MG INH SOL UD 3ML (DUONEB)(J7620) NEB ONE (20:00)
[2019-03-05] MEDS ORDERED: NS 500 ML IV ONE (20:00)
[2019-03-05] MEDS ORDERED: ACETAMINOPHEN TAB 650MG DOSE (2X325MG) PO ONE (20:00)
[2019-03-05 20:40] LABS: INFLUENZA A AMPLIFICATION NEGATIVE (NEGATIVE); INFLUENZA B AMPLIFICATION NEGATIVE (NEGATIVE)
[2019-03-05] MEDS ORDERED: LevoFLOXacin 750 MG TABLET PO ONE (21:45)
[2019-03-05] MEDS ORDERED: LEVA750T7 PO (21:56)
[2019-03-05 22:15] VITALS: BP 129/60
== END 2019-03-05 22:47 | disposition home or self-care (01) ==
LOC: M ED 18:22
DX: J18.9 Pneumonia, unspecified organism (principal); R00.0 Tachycardia, unspecified; E11.9 Type 2 diabetes mellitus without complications; J44.9 Chronic obstructive pulmonary disease, unspecified; F17.200 Nicotine dependence, unspecified, uncomplicated; Z79.4 Long term (current) use of insulin; Z79.899 Other long term (current) drug therapy; Z88.1 Allergy status to other antibiotic agents; Z88.8 Allergy status to other drugs, medicaments and biological substances

== ENCOUNTER 2019-03-10 12:56 | Inpatient (IN) | payer OTHER ==
[~2019-03-10] VITALS: Ht 160 cm; Wt 121.8 kg
[2019-03-10] VITALS (12 sets, daily range): BP systolic 70–158; BP diastolic 50–93; O2SAT 93
[~2019-03-10 12:56] MED LIST changes: +LANTINJ4 SQ; +LEVA750T7 PO
[2019-03-10] MEDS ORDERED: CLIN1SOL TOP (13:15)
[2019-03-10] MEDS ORDERED: LANS30CA93 PO (13:15)
[2019-03-10] MEDS ORDERED: LEVO750T13 PO (13:15)
[2019-03-10] MEDS ORDERED: IPRATROPIUM 0.5MG/ALBUTEROL 2.5MG INH SOL UD 3ML (DUONEB)(J7620) NEB ONE (13:30)
[2019-03-10] MEDS ORDERED: LISI10TA4 PO (14:22)
[2019-03-10] MEDS ORDERED: ACET-897 PO (14:22)
[2019-03-10] MEDS ORDERED: ALBU83IN INH (14:22)
[2019-03-10] MEDS ORDERED: GABA-843 PO (14:22)
[2019-03-10] MEDS ORDERED: RIFA300C3 PO (14:22)
[2019-03-10] MEDS ORDERED: TOPI25CA3 PO (14:22)
[2019-03-10] MEDS ORDERED: LORA-622 PO (14:29)
[2019-03-10] MEDS ORDERED: METF500T13 PO (14:29)
[2019-03-10] MEDS ORDERED: MONT10TA2 PO (14:29)
[2019-03-10] MEDS ORDERED: GLUCAGON FOR INJ 1 MG VIAL (J1610) SC PRN (14:45)
[2019-03-10] MEDS ORDERED: ACETAMINOPHEN TAB 650MG DOSE (2X325MG) PO PRN (14:45)
[2019-03-10] MEDS ORDERED: GLUCOSE 4 GM CHEW TABLET PO PRN (14:45)
[2019-03-10] MEDS ORDERED: MOM 30ML SUSPENSION UDC PO PRN (14:45)
[2019-03-10] MEDS ORDERED: LEVALBUTEROL 1.25 MG/0.5 ML CONCENTRATE NEB INH PRN (14:45)
[2019-03-10] MEDS ORDERED: DEXTROSE 50% 50 ML SYRINGE IV PRN (14:45)
[2019-03-10] MEDS ORDERED: AZITHROMYCIN INJ 500 MG, VIAL MATE ADAPTER 1 EACH in D5W 250 ML IV SCH (15:00)
[2019-03-10] MEDS ORDERED: methylPREDNISolone INJ 125 MG/2 ML VIAL (J2930) IV SCH (15:00)
[2019-03-10 15:02] LABS: HEMATOCRIT 45.3 % (36.0-47.0); HEMOGLOBIN 15.2 g/dl (12.0-15.5); MEAN CORPUSCULAR HEMOGLOBIN 31.5 pg (27.0-33.0); MEAN CORPUSCULAR HGB CONC 33.6 g/dl (32.0-36.5); PLATELET COUNT, AUTOMATED 291 10^3/uL (150-450); RED BLOOD COUNT 4.82 10^6/uL (4.00-5.40); WHITE BLOOD COUNT 7.8 10^3/uL (4.0-10.0)
[2019-03-10 15:15] LABS: ABG BASE EXCESS 2.2 (-2.0-2.0); ABG HCO3 26.7 MEQ/L (22.0-26.0); ABG O2 SATURATION 92.3 % (95.0-99.0); ABG PARTIAL PRESSURE CO2 41.5 mmHg (35.0-45.0); ABG PARTIAL PRESSURE O2 61.6 mmHg (75.0-100.0); ABG STANDARD HCO3 26.2 MEQ/L (22.0-26.0); ABG pH (ARTERIAL) 7.427 UNITS (7.350-7.450)
--- NOTE | 2019-03-10 15:28 | REP ---
PA and lateral chest: Comparison is 03/05/2019. The lung horner are clear. Prominent breast shadows superimposed lower lung zones artifactually increasing density bilaterally on the PA view . Cardiac size is normal. The wander, mediastinum, skeletal structures are unremarkable. Impression: Negative PA and lateral chest. Electronically Signed by Juan Jeff MD 03/10/2019 03:19 P
[2019-03-10 15:32] LABS: ALT/SGPT 47 U/L (12-78); BILIRUBIN,TOTAL 0.3 MG/DL (0.2-1.0); BLOOD UREA NITROGEN 12 MG/DL (7-18); CALCIUM LEVEL 8.8 MG/DL (8.5-10.1); CARBON DIOXIDE LEVEL 31 MEQ/L (21-32); CHLORIDE LEVEL 105 MEQ/L (98-107); CREATININE FOR GFR 0.56 MG/DL (0.55-1.30); GLOMERULAR FILTRATION RATE > 60.0 (>58); GLUCOSE, FASTING 127 MG/DL (70-100); POTASSIUM SERUM 4.2 MEQ/L (3.5-5.1); SODIUM LEVEL 141 MEQ/L (136-145); TOTAL PROTEIN 6.7 GM/DL (6.4-8.2)
[2019-03-10] MEDS ORDERED: cefTRIAXone SOD 1 GM in D5W MINI-BAG PLUS 50 ML IV SCH (16:00)
[2019-03-10] MEDS ORDERED: HumaLOG INSULIN (NovoLOG) PER UNIT SC SCH ×2 (17:30→21:00)
[2019-03-10] MEDS ORDERED: diphenhydrAMINE INJ 50MG/ML VIAL (J1200) As Ordered ONE (17:43)
[2019-03-10] MEDS ORDERED: diphenhydrAMINE INJ 50MG/ML VIAL (J1200) IV ONE (18:00)
[2019-03-10] MEDS ORDERED: RACEPINEPHrine 2.25 % UD INHA INH ONE (18:05)
[2019-03-10] MEDS ORDERED: methylPREDNISolone INJ 125 MG/2 ML VIAL (J2930) As Ordered ONE (18:07)
[2019-03-10] MEDS ORDERED: FAMOTIDINE/NS 20 MG/50 ML BAG (S0028) As Ordered ONE ×2 (18:09→18:21)
[2019-03-10] MEDS ORDERED: methylPREDNISolone INJ 125 MG/2 ML VIAL (J2930) IV ONE (18:10)
[2019-03-10] MEDS ORDERED: FAMOTIDINE IV BAG 20 MG in IV 1 EA IV ONE ×2 (18:20→18:40)
[2019-03-10] MEDS ORDERED: ASPIRIN 81 MG CHEW TABLET PO ONE (18:45)
[2019-03-10] MEDS ORDERED: HEPARIN SOD (PORCINE) 5000 UNITS/ML VIAL As Ordered ONE (19:14)
[2019-03-10] MEDS ORDERED: HEPARIN 25,000 UNITS/250 ML D5W BAG (100 UNITS/ML) As Ordered ONE (19:14)
[2019-03-10 19:21] LABS: BASO # 0.1 10^3/uL (0.0-0.2); BASO % 0.6 % (0.0-1.0); EOS % 0.1 % (0.0-3.0); HEMATOCRIT 54.2 % (36.0-47.0); LYMPH # 3.3 10^3/uL (1.5-5.0); MEAN CORPUSCULAR HEMOGLOBIN 31.1 pg (27.0-33.0); MEAN CORPUSCULAR HGB CONC 33.4 g/dl (32.0-36.5); MEAN CORPUSCULAR VOLUME 93.1 fl (80.0-96.0); MONO # 0.4 10^3/uL (0.0-0.8); MONO % 2.5 % (0.0-5.0); NEUTROPHILS # 13.4 10^3/uL (1.5-8.5); NEUTROPHILS % 76.7 % (36.0-66.0); PLATELET COUNT, AUTOMATED 375 10^3/uL (150-450); RED BLOOD COUNT 5.82 10^6/uL (4.00-5.40); WHITE BLOOD COUNT 17.4 10^3/uL (4.0-10.0)
[2019-03-10] MEDS ORDERED: HEPARIN SOD (PORCINE) 5000 UNITS/ML VIAL IV STA (19:21)
[2019-03-10] MEDS ORDERED: HEPARIN DRIP 25,000 UNITS in IV 1 EA IV SCH (19:23)
[2019-03-10 19:34] LABS: HEMOGLOBIN 18.1 g/dl (12.0-15.5)
[2019-03-10] MEDS ORDERED: MORPHINE 4 MG/ML 1ML VIAL/SYRINGE (J2270) As Ordered ONE (19:39)
[2019-03-10] MEDS ORDERED: MORPHINE 4 MG/ML 1ML VIAL/SYRINGE (J2270) IV ONE (19:45)
[2019-03-10 19:46] LABS: ALT/SGPT 40 U/L (12-78); BILIRUBIN,TOTAL 0.4 MG/DL (0.2-1.0); BLOOD UREA NITROGEN 15 MG/DL (7-18); CALCIUM LEVEL 8.2 MG/DL (8.5-10.1); CARBON DIOXIDE LEVEL 25 MEQ/L (21-32); CHLORIDE LEVEL 104 MEQ/L (98-107); CPK CREATINE PHOSPHOKINASE 68 U/L (26-192); CREATININE FOR GFR 0.96 MG/DL (0.55-1.30); GLOMERULAR FILTRATION RATE > 60.0 (>58); GLUCOSE, FASTING 345 MG/DL (70-100); LDH LACTATE DEHYDROGENASE 237 U/L (84-246); PHOSPHORUS LEVEL 5.8 MG/DL (2.5-4.9); POTASSIUM SERUM 3.7 MEQ/L (3.5-5.1); SODIUM LEVEL 141 MEQ/L (136-145)
[2019-03-10 19:47] LABS: ALBUMIN 2.7 GM/DL (3.2-5.2); CHOLESTEROL LEVEL 195 MG/DL (< 200); TOTAL PROTEIN 5.9 GM/DL (6.4-8.2); TRIGLYCERIDES LEVEL 184 MG/DL (<150)
[2019-03-10] MEDS ORDERED: TICAGRELOR 90 MG TABLET (BRILINTA) PO ONE (20:00)
[2019-03-10] MEDS ORDERED: LEVALBUTEROL 1.25 MG/0.5 ML CONCENTRATE NEB INH SCH (20:00)
[2019-03-10 20:19] LABS: CK-MB VALUE MASS 1.4 NG/ML (<3.6); MB/CK RELATIVE INDEX 2.06 (< OR =4)
--- NOTE | 2019-03-10 20:23 | CR ---
DATE OF CONSULTATION: 03/10/2019 REFERRING PHYSICIAN: Dr. Luca lozano INDICATION: Syncope, ST-elevation myocardial infarction. HISTORY OF PRESENT ILLNESS: Mrs. Truong is not previously known to me. She is a 48-year-old female who presented to this facility as a direct admission from her primary care physician's office for asthma exacerbation. She was admitted to the floor and treated with standard approach, and apparently as she was receiving infusion of IV Rocephin, she suddenly developed distress, she got out of bed and collapsed next to it. Carlitos Coronado was called. When the responders arrived to the site, she apparently was mottled and cyanotic, had a barely palpable pulse, but they were able to detect oxygenation by pulse oximeter. She was given Solu-Medrol and Benadryl, and racemic epinephrine in the form of inhalation for presumptive anaphylactic reaction. Her blood pressure rapidly normalized after small IV bolus. When she was in the intensive care unit (ICU), a 12-lead ECG was ordered and revealed ST-segment elevations in inferior and lateral leads with reciprocal changes on anterior wall. The repeated ECG a few minutes later was unchanged. Dr. Bonilla called me for a STAT consultation. When I arrived to the bedside, the patient was complaining about severe chest discomfort. She has clearly an injury on her nose with still ongoing bleeding. She says that her shortness of breath is better. She denies any prior history of heart attack or coronary artery disease as such, even though the story provided by the patient is rather limited. PAST MEDICAL HISTORY: 1. Type 2 diabetes. 2. Hypertension. 3. Dyslipidemia. 4. Morbid obesity. 5. Obstructive sleep apnea. 6. Asthma. SURGICAL HISTORY: Positive for cholecystectomy and appendectomy. OUTPATIENT MEDICATIONS: Albuterol inhaler, Alogliptin 6.25 mg a day, amlodipine 10 mg a day, atorvastatin 40 mg a day, baclofen 10 mg three times a day, Celexa 20 mg a day, topical clindamycin, fluticasone, gabapentin 300 mg three times a day, insulin, Combivent bronchodilator, lansoprazole 30 mg a day, levofloxacin 750 was completed for 7 days, lisinopril 10 mg a day, loratadine 10 mg a day, metformin 1 gram twice a day, rifampin 300 mg twice a day, spironolactone 20 mg daily and topiramate 25 mg twice a day. ALLERGIES: There are reported allergies to RANITIDINE, VARENICLINE, and now CEFTRIAXONE. SOCIAL HISTORY: The patient is an active smoker. I do not have information about alcohol use. FAMILY HISTORY: This situation not relevant, but she does have family history of coronary artery disease. REVIEW OF SYSTEMS: Not obtained due to the emergency nature of the situation, but she denies any prior history of stroke or history of bleeding and no stomach ulcers. PHYSICAL EXAMINATION: Mrs. Truong is a 48-year-old morbidly obese female who appears to be in mild discomfort, even at rest. Her last vital signs: Blood pressure 130/76, heart rate in 80s, saturation in mid 90s on high-flow oxygen by mask. Lungs are reasonably clear. I do not appreciate any wheezing or crackles at this point. Heart exam reveals regular rhythm, rather muffled heart sound corresponding to her body habitus. I do not appreciate any gallop, rub or murmur. Abdomen is soft and nontender. Extremities are free of significant edema. Her peripheral pulses are palpable and peripheral perfusion appears good. LABORATORY: On admission this afternoon, revealed normal CBC, normal basic metabolic panel, normal liver function. Albumin is 3.0. Chest x-ray reveals no obvious cardiomegaly or infiltrate. ECG on admission was normal. Two Followup ECGs revealed acute ST elevation inferolateral myocardial infarction with anterior reciprocal changes. She so far received aspirin 325 mg and heparin bolus followed by infusion drip and 180 mg of Brilinta. Ambulance was called, and I contacted [facility] for emergency cardiac catheterization. One might consider administration of thrombolytics, but with still ongoing bloody nose, I am afraid that we would trigger massive bleeding. She is better off going emergently to the chemical lab technician. I explained that to the patient, and she was in agreement, as well as her sister and daughter. Situation was discussed with Dr. Bonilla and Dr. May, who are both present.
[2019-03-10] MEDS ORDERED: LEVEMIR (INSULIN DETEMIR) 1 UNITS/0.01ML SC SCH (21:00)
[2019-03-10] MEDS ORDERED: MONTELUKAST 10 MG TAB PO SCH (21:00)
--- NOTE | 2019-03-10 21:04 | REP ---
HISTORY: Syncopal episode. COMPARISON: Multiple, the latest earlier today. The technique utilized in obtaining the radiograph has magnified the cardiac silhouette and accentuated the interstitial markings. There is no change from the prior exam. The superior mediastinal structures are midline. The cardiac silhouette is unremarkable in size, shape and position. The diaphragmatic surfaces of the lungs are regular and the costophrenic angles are clear. The pulmonary horner are clear. The imaged osseous structures are intact. IMPRESSION: There is no acute cardiopulmonary disease. Electronically Signed by Esequiel Cramer DO 03/11/2019 02:11 P
--- NOTE | 2019-03-10 21:08 | REP ---
HISTORY: Pain after trauma. Two views cannot rule out a fracture. A trauma series consists of four views. Two portable views were obtained. The lateral is not a perfect lateral. Limited two views examination shows only a single tiny ossific/calcific density in the elbow joint between the radius and ulna. The etiology of this is uncertain. Limited two view exam shows no gross fracture. Limited two view exam shows no gross joint effusion. IMPRESSION: Exam limitations and findings as described above. If a loose intra-articular body is of clinical concern, then an MRI examination is recommended. If a fracture is a clinical concern, then a four view elbow series would be necessary. Electronically Signed by Esequiel Cramer DO 03/11/2019 02:11 P
--- NOTE | 2019-03-10 23:46 | CCN ---
DATE: 03/10/2019 CRITICAL CARE NOTE NOTE: There was a rapid response called around 5:40 p.m. on Ms. Truong. Apparently, she was sitting on the edge of her bed, and had been started on Rocephin when she suddenly fell forward flat on her face, and a Max Cart was activated. On arrival, she was lying on the ground. There was blood coming from an IV, as well as urine, and her face. However, she was making good respiratory efforts. Respiratory assisted with those efforts, but did not actually bag her. In addition to having a swollen nose and bloody face, her lips were swollen but no obvious stridor. She was easy to bag. The bed had previously been moved out of the room. It was brought back in, and several persons were required to lift her onto the bed, so we would have better access. Anesthesia assisted with getting an IV, as did nursing. We could not palpate a pulse, in part because of her body habitus but there was a dopplerable pulse, Doppler left femoral pulse. On the monitor, she was sinus tachycardic (tach) at about 136-140. An oximeter did have a good pulse wave and was reading in the low 90s. No blood pressure could be obtained, though it was difficult with her size. She was immediately given 50 mg of Benadryl. The decision was made not to give her IV epinephrine because she did have a readable oximetry, had a pulse on the monitor and dopplerable pulse and with her tachycardia, decided we wanted to transfer her rapidly to the intensive care unit (ICU) and be able to get more accurate pressure measurement considered at that time of. IV fluids have been on wide open. She woke up on the elevator on the way down, and was stating that she could not breathe, but was otherwise moving all extremities and was able to complete her sentences. Still no audible stridor. She was transferred to the ICU bed. Her first pressure in the ICU showed a systolic of around 70. She was given 125 mg of Solu-Medrol as well as 40 mg of Pepcid. She was hooked up to the monitor, and the EKG appeared abnormal. She had a formal EKG done, which showed ST elevation. She was given 325 mg of chewable aspirin and Dr. Baker of cardiology was contacted. A repeat blood pressure showed systolics in the 100s to 120s. She had a chest x-ray done, which did not show any obvious fractured ribs. She was complaining of left arm and she had a left elbow x-ray done, which has not been officially read but through my evaluation of it, did not show any gross fractures. Dr. Baker has arranged for her to be transferred to [place] for catheterization. She has also been started on a heparin drip. In my examination of her during her various points of the response, she always had good air entry. No wheezing. No stridor. She was tachycardiac with no obvious murmur. Dopplerable femoral pulses. After she was moved down, her extremities had a better color. She did have a rash on her stomach. There are dopplerable pedal pulses at this time. Her records were reviewed using [employer] and pulling up the outpatient. I also had spoke with Dr. Gil to get his help on reviewing some of the records for risk factors, which included smoking and her mother's myocardial infarction in her 50s. Additionally, she is a smoker and diabetes. She also has asthma. The reason for her admission was asthma exacerbation, and she is positive for parainfluenza (para flu). CRITICAL CARE TIME: 1 hour and 45 minutes not including procedure time.
--- NOTE | 2019-03-11 08:27 | ECGEPIP ---
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
[2019-03-11] MEDS ORDERED: ATORVASTATIN 20 MG TAB PO SCH (09:00)
[2019-03-11] MEDS ORDERED: ENOXAPARIN 40 MG/0.4 ML SYRINGE (J1650) SC SCH (09:00)
[2019-03-11] MEDS ORDERED: LISINOPRIL 10 MG TAB PO SCH (09:00)
[2019-03-11] MEDS ORDERED: PANTOPRAZOLE 40MG TAB (PROTONIX) PO SCH (09:00)
[2019-03-11] MEDS ORDERED: amLODIPine 10 MG TAB PO SCH (09:00)
== END 2019-03-10 20:06 | disposition short-term general hospital (02) | DRG 139 ==
LOC: M ED 12:56 → M ED INP 13:21 → M MSPAV 16:14 → M ICU 18:01
PROVIDERS: ADMIT Family Medicine; ATTEND Family Medicine
DX: J12.2 Parainfluenza virus pneumonia (principal); I21.3 ST elevation (STEMI) myocardial infarction of unspecified site; E11.40 Type 2 diabetes mellitus with diabetic neuropathy, unspecified; I11.0 Hypertensive heart disease with heart failure; Z68.42 Body mass index [BMI] 45.0-49.9, adult; J45.41 Moderate persistent asthma with (acute) exacerbation; I50.810 Right heart failure, unspecified; E66.01 Morbid (severe) obesity due to excess calories; L73.2 Hidradenitis suppurativa; K21.9 Gastro-esophageal reflux disease without esophagitis; E78.2 Mixed hyperlipidemia; G47.33 Obstructive sleep apnea (adult) (pediatric); Z79.899 Other long term (current) drug therapy; Z88.8 Allergy status to other drugs, medicaments and biological substances; F41.9 Anxiety disorder, unspecified

== ENCOUNTER → 2019-03-23 | Outpatient (CLI) | payer OTHER ==
[~2019-03-23] MED LIST changes: +ACET-897 PO; +CLIN1SOL TOP; +CLOP75TA2; +CYCL10TA PO; +GABA-843 PO; +LANS30CA93 PO; +LEVO750T13 PO; +LISI10TA4 PO; +LORA-622 PO; +METF500T13 PO; +MONT10TA2 PO; +NITR0.3S SL; +RIFA300C3 PO; +TOPI25CA3 PO
--- NOTE | 2019-03-23 10:37 | REP ---
Eight views cervical spine: 03/23/2019. Indication: Neck pain. Comparison: 10/14/2018. Findings: There is no acute fracture, subluxation or dislocation. There is straightening of the cervical lordosis. No destructive osseous lesions are detected. Degenerative sequelae are redemonstrated at C6/C7. There is no instability demonstrated on the dynamic testing. The spinal canal and neural foramen are patent. Impression: No acute osseous injury of the cervical spine. Electronically Signed by Marcell Weiss DO 03/23/2019 10:29 A
== END ==
LOC: M RAD 08:58
PROVIDERS: ATTEND Family Medicine
DX: M50.30 Other cervical disc degeneration, unspecified cervical region (principal)

== ENCOUNTER 2019-04-01 16:55 | Emergency (ER) | payer OTHER ==
[~2019-04-01] VITALS: Ht 160 cm; Wt 114.6 kg
[~2019-04-01 16:55] MED LIST changes: -CLOP75TA2; -CYCL10TA PO; -NITR0.3S SL
[2019-04-01] MEDS ORDERED: CLOP75TA2 (17:06)
[2019-04-01] MEDS ORDERED: NITR0.3S SL (17:54)
[2019-04-01] MEDS ORDERED: CYCLOBENZAPRINE 10 MG TAB PO ONE (19:00)
[2019-04-01] MEDS ORDERED: ACETAMINOPHEN 650MG ER TAB (TYLENOL ARTHRITIS) PO ONE (19:00)
--- NOTE | 2019-04-01 19:23 | REPVR ---
PROCEDURE INFORMATION: Exam: CT Cervical Spine Without Contrast Exam date and time: 04/01/2019 6:54 PM Clinical history: 48 years old, female; Neck pain; Additional info: Ddd, c6-c7, decreased rom neck, trapezius muscle pain TECHNIQUE: Imaging protocol: Computed tomography images of the cervical spine without contrast. Radiation optimization: All CT scans at this facility use at least one of these dose optimization techniques: automated exposure control; mA and/or kV adjustment per patient size (includes targeted exams where dose is matched to clinical indication); or iterative reconstruction. COMPARISON: CT Spine,cervical w/o contrast 08/27/2013 10:55 AM FINDINGS: Vertebrae: No segmental vertebral malalignment. Smooth reversal of normal cervical lordosis. Vertebral body height is maintained at all levels. No acute fracture. No destructive or blastic cervical spine osseous lesion. Discs/Spinal canal/Neural foramina: Degenerative disc height loss with endplate osteophytes C4-5, C5-6 and C6-7. Minimal spinal canal narrowing. Minimal left C6-7 osseous neural foraminal narrowing. Pattern is similar to the prior CT. Soft tissues: Soft tissues show no concerning abnormality or asymmetry. Lungs: Imaged lung apices demonstrate no concerning abnormality. Pleural space: No apical pneumothorax. IMPRESSION: 1. No acute or destructive cervical spine abnormality 2. Mild degenerative disc and uncovertebral arthropathy in the mid and lower cervical spine without significant osseous spinal canal or osseous neural foraminal compromise Electronically signed by: Varinder Nunez On 04/01/2019 19:23:36 PM
[2019-04-01] MEDS ORDERED: CYCL10TA PO (21:00)
[2019-04-01 21:06] VITALS: BP 117/65
== END 2019-04-01 21:16 | disposition home or self-care (01) ==
LOC: M ED 16:55
DX: M50.30 Other cervical disc degeneration, unspecified cervical region (principal); G89.29 Other chronic pain; F17.200 Nicotine dependence, unspecified, uncomplicated; Z79.01 Long term (current) use of anticoagulants; Z79.899 Other long term (current) drug therapy; Z79.4 Long term (current) use of insulin; Z88.1 Allergy status to other antibiotic agents; Z88.8 Allergy status to other drugs, medicaments and biological substances

== ENCOUNTER → 2019-06-19 | Outpatient (CLI) | payer OTHER ==
[~2019-06-19] MED LIST changes: +CLOP75TA2; +CYCL10TA PO; +NITR0.3S SL
--- NOTE | 2019-06-20 10:54 | REP ---
Right great toe series: 10 views presented. History: Great toe injury. Findings: There is soft-tissue swelling about the great toe. A moderate hallux valgus deformity is seen. There is first MTP joint and first MTP joint osteoarthritic spurring. There is no evidence of fracture, subluxation, or opaque foreign body. Impression: Soft-tissue swelling. Osteoarthritic changes. Otherwise negative. Electronically Signed by Franck Peñaloza MD 06/20/2019 08:56 A
== END ==
LOC: M WUC 16:17
PROVIDERS: ATTEND Physician Assistant
DX: S90.111A Contusion of right great toe without damage to nail, initial encounter (principal); W18.30XA Fall on same level, unspecified, initial encounter; Y92.009 Unspecified place in unspecified non-institutional (private) residence as the place of occurrence of the external cause

== ENCOUNTER → 2019-07-02 | Outpatient (REF) | payer OTHER ==
[2019-07-02 10:43] LABS: BASO % 0.4 % (0.0-1.0); EOS # 0.1 10^3/uL (0.0-0.5); EOS % 1.9 % (0.0-3.0); HEMATOCRIT 44.4 % (36.0-47.0); HEMOGLOBIN 14.8 g/dl (12.0-15.5); LYMPH # 2.2 10^3/uL (1.5-5.0); LYMPH % 29.5 % (24.0-44.0); MEAN CORPUSCULAR HGB CONC 33.3 g/dl (32.0-36.5); MEAN CORPUSCULAR VOLUME 92.9 fl (80.0-96.0); MONO # 0.6 10^3/uL (0.0-0.8); MONO % 8.3 % (0.0-5.0); NEUTROPHILS # 4.4 10^3/uL (1.5-8.5); NEUTROPHILS % 59.4 % (36.0-66.0); PLATELET COUNT, AUTOMATED 240 10^3/uL (150-450); RED BLOOD COUNT 4.78 10^6/uL (4.00-5.40); WHITE BLOOD COUNT 7.5 10^3/uL (4.0-10.0)
[2019-07-02 11:04] LABS: ALBUMIN 3.5 GM/DL (3.2-5.2); ALT/SGPT 34 U/L (12-78); BILIRUBIN,TOTAL 0.3 MG/DL (0.2-1.0); BLOOD UREA NITROGEN 13 MG/DL (7-18); CALCIUM LEVEL 8.5 MG/DL (8.5-10.1); CARBON DIOXIDE LEVEL 31 MEQ/L (21-32); CHLORIDE LEVEL 102 MEQ/L (98-107); CHOLESTEROL LEVEL 230 MG/DL (<200); CPK CREATINE PHOSPHOKINASE 77 U/L (26-192); CREATININE FOR GFR 0.59 MG/DL (0.55-1.30); GLOMERULAR FILTRATION RATE > 60.0 (>58); GLUCOSE, FASTING 192 MG/DL (70-100); HDL CHOLESTEROL 40 MG/DL (>40); LDL CHOLESTEROL 140 MG/DL (<100); NON-HDL-C 190 MG/DL; POTASSIUM SERUM 4.3 MEQ/L (3.5-5.1); SODIUM LEVEL 137 MEQ/L (136-145); TOTAL PROTEIN 6.8 GM/DL (6.4-8.2); TRIGLYCERIDES LEVEL 252 MG/DL (<150)
[2019-07-02 11:05] LABS: HEMOGLOBIN A1c 7.7 %
== END ==
LOC: M SFHCPLAZ 08:27
PROVIDERS: ATTEND Physician Assistant Medical
DX: E11.69 Type 2 diabetes mellitus with other specified complication (principal); E78.2 Mixed hyperlipidemia; I10 Essential (primary) hypertension

== ENCOUNTER → 2019-07-14 | Outpatient (CLI) | payer OTHER ==
[~2019-07-14] MED LIST changes: -MONT10TA2; -MONT10TA2 PO; +MONT10TA4; +MONT10TA4 PO; +PROHANCE 279.3MG/ML 15ML VIAL (A9576) As Ordered ONE; +PROHANCE 279.3MG/ML 5ML VIAL (A9576) As Ordered ONE
== END ==
LOC: M RAD 07:55
PROVIDERS: ATTEND Family Medicine
DX: Z12.39 Encounter for other screening for malignant neoplasm of breast (principal)
CPT/HCPCS: A9576 ×2

== ENCOUNTER → 2019-08-11 | Outpatient (CLI) | payer OTHER ==
[~2019-08-11] MED LIST changes: -PROHANCE 279.3MG/ML 15ML VIAL (A9576) As Ordered ONE; -PROHANCE 279.3MG/ML 5ML VIAL (A9576) As Ordered ONE
--- NOTE | 2019-08-11 14:31 | REPMRS ---
Patient History The patient states she has not had a clinical breast exam in over a year. Family history of ovarian cancer in mother, breast cancer at age 50 in maternal aunt. Digital Woman Screen Mammo: August 11, 2019 - Exam #: [id number] Bilateral CC and MLO view(s) were taken. Technologist: Dana Yang, Technologist Prior study comparison: August 14, 2018, bilateral digital woman screen mammo performed at [facility]. May 18, 2014, bilateral digital mammo screening bilat, performed at [facility]. FINDINGS: There are scattered fibroglandular densities. There has been no change in the appearance of the mammogram from the prior studies. There is a mild amount of scattered fibroglandular density which is fairly symmetric. There is no interval development of dominant mass, architectural distortion, or grouped microcalcification suggestive of malignancy. 3-D tomosynthesis shows no additional findings. Assessment: BI-RADS/ACR category 1 mammogram. Negative Mammogram. Recommendation Routine screening mammogram of both breasts in 1 year (for women over age 40). This patient's Lifetime Breast Cancer Risk is estimated at 15.2 %. This mammogram was interpreted with the aid of an FDA-approved computer-aided dectection system. Electronically Signed By: Dayne Peñaloza MD 08/11/19 [id number]
== END ==
LOC: M WHC 11:57
PROVIDERS: ATTEND Physician Assistant Medical
DX: Z12.31 Encounter for screening mammogram for malignant neoplasm of breast (principal); Z80.3 Family history of malignant neoplasm of breast; Z80.41 Family history of malignant neoplasm of ovary

== ENCOUNTER → 2019-11-16 | Outpatient (REF) | payer OTHER ==
[~2019-11-16] MED LIST changes: +CYCL-707 PO; -CYCL10TA PO
[2019-11-16 13:50] LABS: CHOLESTEROL RISK RATIO 4.636 (<5)
[2019-11-16 13:55] LABS: BASO % 0.3 % (0.0-1.0); EOS # 0.2 10^3/uL (0.0-0.5); EOS % 2.2 % (0.0-3.0); HEMATOCRIT 43.2 % (36.0-47.0); LYMPH # 2.8 10^3/uL (1.5-5.0); MEAN CORPUSCULAR HEMOGLOBIN 30.7 pg (27.0-33.0); MEAN CORPUSCULAR HGB CONC 32.4 g/dl (32.0-36.5); MEAN CORPUSCULAR VOLUME 94.7 fl (80.0-96.0); MONO # 0.9 10^3/uL (0.0-0.8); MONO % 8.6 % (0.0-5.0); NEUTROPHILS # 6.3 10^3/uL (1.5-8.5); NEUTROPHILS % 61.2 % (36.0-66.0); PLATELET COUNT, AUTOMATED 272 10^3/uL (150-450); RED BLOOD COUNT 4.56 10^6/uL (4.00-5.40); WHITE BLOOD COUNT 10.3 10^3/uL (4.0-10.0)
[2019-11-16 14:30] LABS: HEMOGLOBIN A1c 7.4 %
== END ==
LOC: M SFHCPLAZ 11:15
PROVIDERS: ATTEND Physician Assistant Medical
DX: E11.69 Type 2 diabetes mellitus with other specified complication (principal); G25.81 Restless legs syndrome; E78.2 Mixed hyperlipidemia

== ENCOUNTER → 2020-02-05 | Outpatient (CLI) | payer OTHER ==
[~2020-02-05] MED LIST changes: -AMLO10TA5 PO; +AMLO1TAB25 PO
[2020-02-05 13:49] LABS: BLOOD UREA NITROGEN 18 MG/DL (7-18); CREATININE FOR GFR 0.53 MG/DL (0.55-1.30); GLOMERULAR FILTRATION RATE > 60.0 (>58)
== END ==
LOC: M PLALAB 10:09
PROVIDERS: ATTEND Family Medicine
DX: H81.90 Unspecified disorder of vestibular function, unspecified ear (principal)

== ENCOUNTER → 2020-02-10 | Outpatient (CLI) | payer OTHER ==
[~2020-02-10] MED LIST changes: +PROHANCE 279.3MG/ML 15ML VIAL As Ordered ONE; +PROHANCE 279.3MG/ML 5ML VIAL As Ordered ONE
--- NOTE | 2020-02-10 18:00 | REPVR ---
PROCEDURE INFORMATION: Exam: MR Head Without and With Contrast Exam date and time: 02/10/2020 5:12 PM Age: 49 years old Clinical indication: Dizziness and weakness, extremity; Bilateral; Patient HX: Weakness, off balanced feeling, vertigo, dizziness; Additional info: H81.90-unspecified disorder of vestibular function TECHNIQUE: Imaging protocol: MR of the head without and with intravenous contrast. 3D rendering (Not supervised by radiologist): MIP and/or 3D reconstructed images were created by the technologist. Contrast material: PROHANCE; Contrast volume: 20 ml; Contrast route: INTRAVENOUS (IV); COMPARISON: MRI-Brain W/O FOLL BY WITH 03/05/2014 11:21 AM FINDINGS: Limitations: There is motion artifact on several sequences. Brain: There is a small hyperintense focus in the right frontal white matter unchanged from prior scan. DWI demonstrates no evidence of acute infarct. There is no hemorrhage or extra-axial collection. There is no mass or abnormal enhancement. There are no abnormal flow voids. Ventricles: There is no hydrocephalus. Bones/joints: Unremarkable. Sinuses: There is mild ethmoid sinus mucosal thickening. No air-fluid levels. Mastoid air cells: Normal as visualized. No mastoid effusion. Internal auditory canals: Thin slice images of the internal auditory canals demonstrate no evidence of a mass in the cerebellopontine angles or internal auditory canals. No focal thickening or enhancement of the 7th or 8th nerves. No evidence of a brainstem lesion. Orbits: Unremarkable. Soft tissues: Unremarkable. IMPRESSION: 1. Single small hyperintense focus in the right frontal white matter could represent a solitary focus of microvascular or demyelinating disease. No change from prior scan. Most often such a minimal focus has no clinical correlate. 2. No acute intracranial lesion or injury. 3. Normal MRI of the internal auditory canals. Electronically signed by: Lee Santiago On 02/10/2020 18:00:37 PM
== END ==
LOC: M RAD 15:10
PROVIDERS: ATTEND Family Medicine
DX: H81.90 Unspecified disorder of vestibular function, unspecified ear (principal)
CPT/HCPCS: 70553; A9576

== ENCOUNTER → 2020-02-11 | Outpatient (CLI) | payer OTHER ==
[~2020-02-11] MED LIST changes: -PROHANCE 279.3MG/ML 15ML VIAL As Ordered ONE; -PROHANCE 279.3MG/ML 5ML VIAL As Ordered ONE
== END ==
LOC: M PAIN 08:10
PROVIDERS: ATTEND Nurse Practitioner Family
DX: M46.1 Sacroiliitis, not elsewhere classified (principal)

== ENCOUNTER → 2020-02-22 | Outpatient (CLI) | payer OTHER ==
--- NOTE | 2020-03-03 09:55 | REP ---
LUMBAR SPINE MRI STUDY WITHOUT CONTRAST HISTORY: Lumbosacral spondylosis. Low back pain. Pain with prolonged standing. COMPARISON: MRI study from 02/09/2014. TECHNIQUE: Axial and sagittal T1 and T2-weighted scans were obtained with and without fat saturation in the usual fashion. MRI FINDINGS: Lumbar vertebral body heights are preserved. Alignment is normal. There are pars defects noted bilaterally in the L5 vertebral body consistent with spondylolysis. There is no evidence of spondylolisthesis. The spondylolysis at L5 is visible on the prior plain radiographs of the lumbar spine from 09/25/2013. Pedicles and posterior elements are otherwise intact. Disc spaces are maintained in height and signal intensity. The tip of the conus medullaris is normal in position and appearance at L1. No lumbar disc protrusion is seen at any lumbar disc level. There is minimal bilateral osteoarthritic facet hypertrophy at L4-5 and mild osteoarthritic facet hypertrophy is present at L5- S1 bilaterally. No spinal stenosis is seen. No neural foraminal impingement is observed. IMPRESSION: Bilateral L5 spondylolysis without spondylolisthesis. Minimal facet hypertrophy bilaterally at L4-5 and L5-S1. Otherwise negative. MTDD
== END ==
LOC: M RAD 11:03
PROVIDERS: ATTEND Nurse Practitioner Family
DX: M47.897 Other spondylosis, lumbosacral region (principal); M46.1 Sacroiliitis, not elsewhere classified

== ENCOUNTER → 2020-03-01 | Outpatient (CLI) | payer OTHER | LOC: M PAIN 09:45 | PROVIDERS: ATTEND Nurse Practitioner Family | DX: M46.1 Sacroiliitis, not elsewhere classified (principal) ==

== ENCOUNTER → 2020-03-11 | Outpatient (CLI) | payer OTHER | LOC: M LABSMTC 09:40 | PROVIDERS: ATTEND Orthopaedic Surgery Sports Medicine | DX: Z01.812 Encounter for preprocedural laboratory examination (principal); Z20.828 Contact with and (suspected) exposure to other viral communicable diseases ==

== ENCOUNTER → 2020-04-20 | Outpatient (CLI) | payer OTHER ==
--- NOTE | 2020-04-23 00:06 | ECWPNPC ---
PATIENT NAME: CHERYL SYED : 1970 GENDER: FEMALE VISIT DATE: 04/20/2020 DISCHARGE DATE: 04/20/20 1036 VISIT LOCKED DATE TIME: PHYSICIAN: SANDER MCNEAL PHYSICIAN PAGER NO: ACTIVE RESOURCE: SANDER MCNEAL REASON FOR APPOINTMENT 1. REVIEW MRI/CONSIDER RIGHT SIJ HISTORY OF PRESENT ILLNESS GENERAL: HERE FOR FOLLOW-UP OF CHRONIC LOW BACK PAIN AND REVIEW MRI OF THE LS-SPINE I ORDERED AT LAST VISIT. THIS IS REVIEWED WITH PATIENT. SHOWING BILATERAL L5 SPONDYLITIC CHANGES. APPEARS VERY UNCOMFORTABLE TODAY. HISTORY OF CO ONE YEAR AGO AND IS ON CHRONIC PLAVIX THERAPY WITH DR. ABDI. WE WILL REQUEST SHE BE OFF PLAVIX FOR 7 DAYS. DISCUSSED SACROILIAC JOINT BLOCK. -. FALL RISK SCREENING: SCREENING :NO FALLS REPORTED IN THE LAST YEAR PAIN SCREENING: PATIENT HAS A COMPLAINT OF ACUTE OR CHRONIC PAIN :YES LOCATION OF PAIN:UPPER BACK, LOW BACK INTENSITY OF PAIN (SCALE OF 1 TO 10):7 WHAT DOES YOUR PAIN FEEL LIKE:ACHING, CONTINOUS, SHARP DURATION:CONTINOUS, CONSTANT, ALL DAY PAIN IS INCREASED BY:ACTIVITIES, PROLONGED STANDING, OTHERS WALKING PAIN IS DECREASED BY:SITTING, OTHERS HEAT, LEANING TO THE SIDE NURSING NOTE: -. PAIN CENTER INTAKE QUESTIONS: DO YOU HAVE A HISTORY OF MRSA? :NO DO YOU TAKE A BLOOD THINNERS? :YES PLAVIX DO YOU HAVE ANY BLEEDING DISORDERS? :NO ANY NEW NUMBNESS OR WEAKNESS IN YOUR LEGS OR ARMS? :NO ANY PACEMAKER,DEFIBRILLATOR, OR DORSAL COLUMN STIMULATOR? :NO DO YOU HAVE ANY RASHES OR OPEN SORES? :NO ARE YOU ALLERGIC TO IV DYE? :NO ARE YOU DIABETIC? :YES ANY NEW PROBLEMS WITH YOUR MEDICATIONS? :NO HAVE YOU RECEIVED A VACCINE IN THE PAST 30 DAYS? :NO DO YOU PLAN TO RECEIVE A VACCINE IN THE NEXT 21 DAYS? :YES IF SO WHAT VACCINE AND WHEN? FLU VACCINE POSSIBLY WHEN SHE GOES TO HER DOCTOR'S OFFICE WITHIN THE NEXT MONTH. DO YOU NEED ANY PRESCRIPTION? :NO DO YOU TAKE ANY IMMUNOSUPPRESSIVE MEDICATIONS? :NO IS THERE A CHANCE YOU COULD BE ? :NO ARE YOU BREAST FEEDING? :NO CURRENT MEDICATIONS TAKING BD PEN NEEDLE MINI U/F 31G X 5 MM MISCELLANEOUS 1 NEEDLE SUBCUTANEOUSLY THREE TIMES DAILY NEEDED TAKING CLOPIDOGREL BISULFATE 75 MG TABLET 1 TABLET ORALLY ONCE A DAY TAKING NITROGLYCERIN 0.4 MG TABLET SUBLINGUAL DIRECTED SUBLINGUAL ONE TABLET UNDER THE TONGUE EVERY 5 MIN FOR UP TO 3 DOSES PRN, IF CHEST PAIN STILL PERSISTS CONTACT 911 TAKING ASPIRIN 81 MG TABLET CHEWABLE 1 TABLET ORALLY ONCE A DAY TAKING SPIRONOLACTONE 25 MG TABLET 1 TABLET ORALLY EVERY MORNING TAKING RIFAMPIN 300 MG CAPSULE DIRECTED ORALLY BID TAKING ADVAIR DISKUS 250-50 MCG/DOSE AEROSOL POWDER BREATH ACTIVATED 1 PUFF INHALATION TWICE A DAY TAKING ALBUTEROL SULFATE (2.5 MG/3ML) 0.083% NEBULIZATION SOLUTION 3 ML NEEDED INHALATION THREE TIMES A DAY TAKING MONTELUKAST SODIUM 10 MG TABLET 1 TABLET ORALLY AT BEDTIME TAKING LANSOPRAZOLE 30 MG CAPSULE DELAYED RELEASE 1 CAPSULE ORALLY BID TAKING ROPINIROLE HCL 0.25 MG TABLET 1 TABLET 1 TO 3 HOURS BEFORE BEDTIME ORALLY BEFORE BEDTIME TAKING GABAPENTIN 300 MG CAPSULE 1 CAPSULE ORALLY TID TAKING BACLOFEN 10 MG TABLET 1 TABLET WITH FOOD OR MILK ORALLY THREE TIMES A DAY TAKING MAY HAVE - - LEFT COCKUP WRIST SPLINT TOPICALLY BEFORE BEDTIME TAKING METFORMIN HCL 500MG TABLET TAKE 2 TABLETS BY MOUTH IN THE MORNING AND 1 TABS WITH DINNER DAILY ORALLY BID TAKING ALOGLIPTIN BENZOATE 6.25 MG TABLET DIRECTED ORALLY DAILY TAKING ONE TOUCH ULTRA BLUE STRIPS 1 STRIP DX E11.69 SUBCUTANEOUSLY QID TAKING COMBIVENT RESPIMAT 20-100 MCG/ACT AEROSOL 1 PUFF INHALATION FOUR TIMES DAILY TAKING ADMELOG SOLOSTAR 100 UNIT/ML SOLUTION PEN-INJECTOR DIRECTED IN SSI SUBCUTANEOUS EACH MEAL TAKING ATORVASTATIN CALCIUM 80 MG TABLET 1 TABLET ORALLY ONCE A DAY TAKING EZETIMIBE 10 MG TABLET 1 TABLET ORALLY ONCE A DAY TAKING BISOPROLOL FUMARATE 5 MG TABLET 1 TABLET ORALLY BID TAKING LISINOPRIL 10 MG TABLET 1 TABLET ORALLY EVERY MORNING TAKING AMLODIPINE 10 MG TABLET 1/2 TAB ORALLY EVERY MORNING TAKING BASAGLAR KWIKPEN 100 UNIT/ML SOLUTION PEN-INJECTOR 55 UNITS SUBCUTANEOUS BEFORE BEDTIME TAKING KETOCAL 2 TABS ORALLY DAILY MEDICATION LIST REVIEWED AND RECONCILED WITH THE PATIENT PAST MEDICAL HISTORY CAD SP STEMI 03/10/19 (PEAK T-I 107) SP SCOT SENTHIL-DR. 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 LONG C PROPHYLACTIC ANTIBIOTICS; NUMEROUS PROCEDURES NICOTINE USE DISORDER LVEF 55-60%, MILD LAE, PASP 32, MILD MR BY 03/2019 [facility] B NONDIPSLACED NASAL BONE FRACTURES BY 03/2019 CT HEAD PANSINUSITIS BY 03/2019 CT HEAD ALLERGIES CHANTIX: IRRITABLE - SIDE EFFECTS ADHESIVE TAPE: RASH - SIDE EFFECTS EPSOM SALT/PERFEUMED: RASH - SIDE EFFECTS CEFTRIAXONE: ANAPHYLAXIS - ALLERGY SURGICAL HISTORY APPENDECTOMY TUBAL LIGATION HYSTERECTOMY CHOLECYSTECTOMY COLONOSCOPY WITH POLYPS 2009 FAMILY HISTORY FATHER: 65 YRS, HTN,CO,SKIN CANCER MOTHER: 54 YRS, CO, DIAGNOSED WITH OTHER MALIGNANT NEOPLASM OF UNSPECIFIED SITE SIBLINGS: ALIVE SON(S): ALIVE DAUGHTER(S): ALIVE PATERNAL GRAND FATHER: , CO PATERNAL GRAND MOTHER: , STROKE.CERVIX CANCER MATERNAL GRAND FATHER: , CO 2 BROTHER(S) , 2 SISTER(S) . 1 SON(S) , 1 DAUGHTER(S) - HEALTHY. ONE SISTER DIABETES,ASTHMA.UNKNOWN IF FAMILY HX OF MELANOMA AND PANCREATIC CANCER. SOCIAL HISTORY GENERAL: TOBACCO USE ARE YOU A:CURRENT SMOKER ARE YOU INTERESTED IN QUITTING?NOT READY TO QUIT COUNSELED THE PATIENT ON SMOKING EFFECTS, EDUCATION [id number]/18/2020 HOW MANY CIGARETTES A DAY DO YOU SMOKE?6-10 HOW SOON AFTER YOU WAKE UP DO YOU SMOKE YOUR FIRST CIGARETTE?WITHIN 5 MIN HOW OFTEN DO YOU SMOKE CIGARETTES?EVERY DAY PATIENT COUNSELED ON THE DANGERS OF TOBACCO USE AND URGED TO QUIT:04/20/2020 ADDITIONAL FINDINGS: TOBACCO USERSNUFF USER LATEX QUESTIONNAIRE LATEX ALLERGY : HAVE YOU EVER DEVELOPED ANY TYPE OF REACTION AFTER HANDLING LATEX PRODUCTS SUCH RUBBER GLOVES, CONDOMS, DIAPHRAGMS, BALLOONS, SOCKS, OR UNDERWEAR?NO LATEX ALLERGY : HAVE YOU EVER DEVELOPED ANY TYPE OF REACTION DURING OR AFTER DENTAL APPOINTMENT, VAGINAL/RECTAL EXAMINATION, SURGICAL PROCEDURE, OR ANY OTHER EXPOSURE?NO LATEX RISK : HAVE YOU EVER HAD ANY DIFFICULTY BREATHING OR HIVES AFTER EATING OR HANDLING ANY FRUITS, OR VEGETABLES; SUCH KIWI, BANANAS, STONE FRUITS, OR CHESTNUTSNO LATEX RISK : DO YOU HAVE A PREVIOUS PERSONAL HISTORY OF MORE THAN NINE SURGERIES, SPINA BIFIDA, OR REPEATED CATHERIZATIONS? NO LATEX RISK : ARE YOU FREQUENTLY EXPOSED TO LATEX PRODUCTS IN YOUR OCCUPATION?NO DATE ASKED : 04/20/2020 BMI CARE GOAL FOLLOW-UP ABOVE NORMAL BMI FOLLOW-UPDIETARY MANAGEMENT EDUCATION, GUIDANCE, AND COUNSELING ALCOHOL SCREENING DID YOU HAVE A DRINK CONTAINING ALCOHOL IN THE PAST YEAR?NO POINTS0 INTERPRETATIONNEGATIVE RECREATIONAL DRUG USE DRUG USE?NO CAFFEINE CAFFEINE USE?YES HOW OFTEN AND HOW MUCH? 1-2 SEXUAL HX HAD SEX IN THE LAST 12 MONTHS (VAGINAL, ORAL, OR ANAL)?NO HAVE YOU EVER HAD AN STD?NO HIV / HEP-C SCREENING HIV TEST OFFERED TO PATIENT:YES DATE OFFERED:07/27/2016 TEST ACCEPTED:NO HEP-C TEST OFFERED TO PATIENT:YES DATE OFFERED:09/03/2017 REASON:PATIENT DECLINED TEST ACCEPTED:NO REASON:PATIENT DECLINED BROCHURE PROVIDED TO PATIENTYES SIKHISM [id number] BUDDHISM LANGUAGE LANGUAGES SPOKEN:YORUBA EDUCATION LEVEL OF EDUCATION:HIGH SCHOOL LEARNING BARRIERS / SPECIAL NEEDS CHANGE FROM LAST VISIT?NO BARRIERS TO LEARNING?NO HEARING IMPAIRED?NO VISION IMPAIRED?YES READING GLASSES :CORRECTIVE LENSES COGNITIVELY IMPAIRED?NO READINESS TO LEARN?YES LEARNING PREFERENCES?NO LEARNING CAPABILITIES PRESENT?YES EMOTIONAL BARRIERS?NO SPECIAL DEVICES?NO SAXOPHONE PLAYER NEEDED?NO DOMESTIC VIOLENCE DO YOU FEEL SAFE IN YOUR ENVIRONMENT?YES OCCUPATION: UNEMPLOYED. DIET: NO CONCENTRATED SWEETS.. EXERCISE: WALKS 2 BLOCKS EVERYDAY. MARITAL STATUS: . OTHERS AT HOME: SPOUSE, SON & GIRLFRIEND C PT.; DAUGHTER LIVES IN OWN APT. UPSTAIRS CLOSE TO HELP. PAIN CLINIC PFS, CLERGY, PUBLIC HEALTH REFERRALS HAS THE PATIENT BEEN EDUCATED REGARDING HIS/HER PLAN OF CARE?YES HAS THE PATIENT BEEN EDUCATED REGARDING PAIN, THE RISK FOR PAIN, THE IMPORTANCE OF EFFECTIVE PAIN MANAGEMENT, AND THE PAIN ASSESSMENT PROCESS?YES ADVANCE DIRECTIVE ADVANCE DIRECTIVE DISCUSSED WITH PATIENT:YES PATIENT HAS NO ADVANCED DIRECTIVES AND DECLINES INFORMATION ON HCP. HOSPITALIZATION/MAJOR DIAGNOSTIC PROCEDURE CELLULITIS RIGHT LEG 2013 ASTHMA EXACERBATION/STEMI SP CX SCOT[facility] 03/10-03/13/19 REVIEW OF SYSTEMS CONSTITUTIONAL: ANY RECENT FEVER NO . CHILLS NO . WEIGHT CHANGE OF UNKNOWN REASONS NO . GASTROENTEROLOGY: NEW UNEXPLAINABLE CHANGES IN BOWEL CONTROL NO . CONSTIPATION NO . GENITOURINARY: ANY NEW CHANGE IN BLADDER CONTROL? NO . NEUROLOGY: NEW ONSET DIZZINESS OR NEUROLOGICAL CHANGES NOT MENTIONED NO . NEW NUMBNESS OR PAIN PATTERNS NOT MENTIONED AND PERTINENT TO TODAY'S VISIT NO . CARDIOLOGY: NEW CHEST PRESSURE NO . NEW CHEST PAIN NO . RESPIRATORY: UNEXPLAINABLE COUGH NO . NEW SHORTNESS OF BREATH NO . VITAL SIGNS WT 279.2 LBS, HT 62 IN, BMI 51.06 INDEX, BP 165/85 MM HG, HR 90 /MIN, RR 20 /MIN, TEMP 96.5 F, OXYGEN SAT % 97%, SAFE IN ENV? (Y/N) Y, NA INITIALS SC 10:05, REVIEWED BY: JSJ. PARADISE RN. EXAMINATION GENERAL EXAMINATION: GENERAL ALERT,NO DISTRESS . PSYCH AFFECT NORMAL . LUNGS: LUNG SOUNDS ARE CLEAR . HEART: HEART RATE REGULAR . MUSCULOSKELETAL: MST 5/5 BILAT. LOWER EXTREMITIES . LUMBAR: TENDERNESS BILAT. SIJ . DIAGNOSTIC TESTS REVIEWED MRI L/S SPINE 02/22/2020. ASSESSMENTS SACROILIITIS - M46.1 (PRIMARY) TREATMENT SACROILIITIS NOTES: BILATERAL SIJ/MED HOLD SEND STOP PLAVIX 7 DAYS SCHEDULE ON DAY [address] ABDI 1032 PRINTED AND REVIEWED INFORMATION ON SACROILIAC JOINT INJECTION WITH PATIENT. ALSO REVIEWED PRE-PROCEDURE INSTRUCTIONS. PATIENT VERBALIZED AN UNDERSTANDING. Jasiel GHOTRA RN. OTHERS NOTES: PATIENT EDUCATION WAS PRINTED. PROCEDURE CODES FA211 ESTABILISHED PATIENT [facility] FACILITY CHARGE DISPOSITION & COMMUNICATION FOLLOW UP POST PROCEDURE (REASON: BILATERAL SIJ/MED HOLD) ELECTRONICALLY SIGNED BY KEIKO COLEMAN ON 04/22/2020 AT 01:56 PM EST DISCLAIMER : THIS IS A VISIT SUMMARY EXTRACTED FROM THE [employer] CHART. IT IS NOT A COPY OF THE [employer] PROGRESS NOTE. YASMINE
== END ==
LOC: M PAIN 10:00
PROVIDERS: ATTEND Nurse Practitioner Family
DX: M46.1 Sacroiliitis, not elsewhere classified (principal); I25.10 Atherosclerotic heart disease of native coronary artery without angina pectoris; I10 Essential (primary) hypertension; E78.5 Hyperlipidemia, unspecified; I25.2 Old myocardial infarction; J45.40 Moderate persistent asthma, uncomplicated; K21.9 Gastro-esophageal reflux disease without esophagitis; G47.33 Obstructive sleep apnea (adult) (pediatric); E11.21 Type 2 diabetes mellitus with diabetic nephropathy; F32.9 Major depressive disorder, single episode, unspecified; F41.1 Generalized anxiety disorder; F17.210 Nicotine dependence, cigarettes, uncomplicated; Z79.82 Long term (current) use of aspirin; Z79.84 Long term (current) use of oral hypoglycemic drugs; Z79.899 Other long term (current) drug therapy; Z88.1 Allergy status to other antibiotic agents; Z88.8 Allergy status to other drugs, medicaments and biological substances; Z91.048 Other nonmedicinal substance allergy status

== ENCOUNTER → 2020-05-07 | Outpatient (CLI) | payer OTHER ==
[~2020-05-07] MED LIST changes: -MONT10TA4; -MONT10TA4 PO; +MONT5TAB2; +MONT5TAB2 PO
== END ==
LOC: M LABSMTC 08:56
PROVIDERS: ATTEND Anesthesiology
DX: Z20.828 Contact with and (suspected) exposure to other viral communicable diseases (principal)

== ENCOUNTER → 2020-05-12 | Outpatient (CLI) | payer OTHER ==
[~2020-05-12] MED LIST changes: +BUPIVACAINE HCL 0.25% 30ML VIAL As Ordered ONE; +ISOVUE-M 300 61% 15ML VIAL As Ordered ONE; +LIDOCAINE 1% SDV 30ML VIAL As Ordered ONE; +TRIAMCINOLONE ACETONIDE SUSP 40 MG/ML VIAL (J3301) As Ordered ONE; +oxyCODONE 5MG TAB As Ordered ONE
--- NOTE | 2020-05-12 13:44 | REP ---
INDICATION: BILATERAL SACROILIAC JOINT BLOCK. COMPARISON: None. TECHNIQUE: Five views. 15.2 seconds of fluoroscopy time is reported. FINDINGS: A sequence of 5 last image hold fluoroscopically obtained spot radiographs the SI joints document needle position bilaterally associated with injection procedure. IMPRESSION: Procedural imaging. <Electronically signed by Dayne Peñaloza > 05/12/20 0675
--- NOTE | 2020-05-14 00:42 | ECWPNPC ---
PATIENT NAME: CHERYL SYED : 1970 GENDER: FEMALE VISIT DATE: 05/12/2020 DISCHARGE DATE: 05/12/20 1153 VISIT LOCKED DATE TIME: PHYSICIAN: ZELDA HARRIS MD PHYSICIAN PAGER NO: ACTIVE RESOURCE: ZELDA HARRIS MD REASON FOR APPOINTMENT 1. BILATERAL SACROILIAC JOINT BLOCK HISTORY OF PRESENT ILLNESS GENERAL: -. FALL RISK SCREENING: SCREENING :NO FALLS REPORTED IN THE LAST YEAR PAIN SCREENING: PATIENT HAS A COMPLAINT OF ACUTE OR CHRONIC PAIN :YES LOCATION OF PAIN:LOW BACK INTENSITY OF PAIN (SCALE OF 1 TO 10):8 AVERAGE 5-6 WHAT DOES YOUR PAIN FEEL LIKE:ACHING, CONTINOUS DURATION:CONTINOUS, CONSTANT, AWAKENS FROM SLEEP PAIN IS INCREASED BY:ACTIVITIES, PROLONGED STANDING PAIN IS DECREASED BY:OTHERS REST NURSING NOTE: -. PAIN CENTER INTAKE QUESTIONS: DO YOU HAVE A HISTORY OF MRSA? :NO DO YOU TAKE A BLOOD THINNERS? :YES PLAVIX-LAST DOSE 05/04/20 DO YOU HAVE ANY BLEEDING DISORDERS? :NO ANY NEW NUMBNESS OR WEAKNESS IN YOUR LEGS OR ARMS? :NO ANY PACEMAKER,DEFIBRILLATOR, OR DORSAL COLUMN STIMULATOR? :NO DO YOU HAVE ANY RASHES OR OPEN SORES? :NO ARE YOU ALLERGIC TO IV DYE? :NO ARE YOU DIABETIC? :YES FSBS THIS AM WAS 177 ANY NEW PROBLEMS WITH YOUR MEDICATIONS? :NO HAVE YOU RECEIVED A VACCINE IN THE PAST 30 DAYS? :NO DO YOU PLAN TO RECEIVE A VACCINE IN THE NEXT 21 DAYS? :NO DO YOU TAKE ANY IMMUNOSUPPRESSIVE MEDICATIONS? :NO ANY HISTORY OF SEIZURES? :NO ANY HISTORY OF CARDIAC ISSUES OR EVENTS? :YES CAD SP STEMI, HAS STENT DO YOU HAVE SLEEP APNEA? :YES DO YOU WEAR A CPAP?YES ANY RECENT HEAD INJURY? :NO DO YOU HAVE ANY NEW INFECTIONS? :NO IS THERE A CHANCE YOU COULD BE ? :NO ARE YOU BREAST FEEDING? :NO WHEN DID YOU LAST EAT? : 05/11 1900 WHEN DID YOU LAST DRINK? : 05/12 07 WHAT DID YOU LAST DRINK? : WATER NAME OF PERSON DRIVING YOU HOME? : VALENTINE SALAMANCA DO YOU HAVE ANY OTHER QUESTIONS OR CONCERNS? : - CURRENT MEDICATIONS TAKING BD PEN NEEDLE MINI U/F 31G X 5 MM MISCELLANEOUS 1 NEEDLE SUBCUTANEOUSLY THREE TIMES DAILY NEEDED TAKING CLOPIDOGREL BISULFATE 75 MG TABLET 1 TABLET ORALLY ONCE A DAY, NOTES: 05/04 TAKING NITROGLYCERIN 0.4 MG TABLET SUBLINGUAL DIRECTED SUBLINGUAL ONE TABLET UNDER THE TONGUE EVERY 5 MIN FOR UP TO 3 DOSES PRN, IF CHEST PAIN STILL PERSISTS CONTACT 911, NOTES: NONE RECENT TAKING ASPIRIN 81 MG TABLET CHEWABLE 1 TABLET ORALLY ONCE A DAY TAKING SPIRONOLACTONE 25 MG TABLET 1 TABLET ORALLY EVERY MORNING TAKING ADVAIR DISKUS 250-50 MCG/DOSE AEROSOL POWDER BREATH ACTIVATED 1 PUFF INHALATION TWICE A DAY TAKING ALBUTEROL SULFATE (2.5 MG/3ML) 0.083% NEBULIZATION SOLUTION 3 ML NEEDED INHALATION THREE TIMES A DAY TAKING MONTELUKAST SODIUM 10 MG TABLET 1 TABLET ORALLY AT BEDTIME TAKING LANSOPRAZOLE 30 MG CAPSULE DELAYED RELEASE 1 CAPSULE ORALLY BID TAKING ROPINIROLE HCL 0.25 MG TABLET 1 TABLET 1 TO 3 HOURS BEFORE BEDTIME ORALLY BEFORE BEDTIME TAKING MAY HAVE - - LEFT COCKUP WRIST SPLINT TOPICALLY BEFORE BEDTIME TAKING METFORMIN HCL 500MG TABLET TAKE 2 TABLETS BY MOUTH IN THE MORNING AND 1 TABS WITH DINNER DAILY ORALLY BID, NOTES: 05/11 2100 TAKING ALOGLIPTIN BENZOATE 6.25 MG TABLET DIRECTED ORALLY DAILY, NOTES: 05/11 2100 TAKING ONE TOUCH ULTRA BLUE STRIPS 1 STRIP DX E11.69 SUBCUTANEOUSLY QID TAKING COMBIVENT RESPIMAT 20-100 MCG/ACT AEROSOL 1 PUFF INHALATION FOUR TIMES DAILY TAKING ADMELOG SOLOSTAR 100 UNIT/ML SOLUTION PEN-INJECTOR DIRECTED IN SSI SUBCUTANEOUS EACH MEAL, NOTES: 05/11 1700 TAKING ATORVASTATIN CALCIUM 80 MG TABLET 1 TABLET ORALLY ONCE A DAY TAKING EZETIMIBE 10 MG TABLET 1 TABLET ORALLY ONCE A DAY, NOTES: 05/11 900 TAKING BISOPROLOL FUMARATE 5 MG TABLET 1 TABLET ORALLY BID, NOTES: 05/11 900 TAKING LISINOPRIL 10 MG TABLET 1 TABLET ORALLY EVERY MORNING, NOTES: 05/11 900 TAKING AMLODIPINE 10 MG TABLET 1/2 TAB ORALLY EVERY MORNING, NOTES: 05/11 900 TAKING BASAGLAR KWIKPEN 100 UNIT/ML SOLUTION PEN-INJECTOR 55 UNITS SUBCUTANEOUS BEFORE BEDTIME, NOTES: 05/11 2100 NOT-TAKING RIFAMPIN 300 MG CAPSULE DIRECTED ORALLY BID NOT-TAKING GABAPENTIN 300 MG CAPSULE 1 CAPSULE ORALLY TID NOT-TAKING BACLOFEN 10 MG TABLET 1 TABLET WITH FOOD OR MILK ORALLY THREE TIMES A DAY NOT-TAKING KETOCAL 2 TABS ORALLY DAILY MEDICATION LIST REVIEWED AND RECONCILED WITH THE PATIENT PAST MEDICAL HISTORY CAD SP STEMI 03/10/19 (PEAK T-I 107) SP SCOT CX-SJ-DR. PAULSON HYPERTENSION HYPERLIPIDEMIA 2B ASTHMA, MODERATE PERSISTENT GERD KIN T2DM NID C NEPHROPATHY OBESITY, MORBID CHRONIC MDD/[place] CERVICAL SPONDYLOSI C5-6 , C6-7 S CORD COMPRESSION MRI 03/2014 @ [facility] LUMBAR SPINE XRAYS 06/16 @ [facility] AFTER FALL C OLD B L5-S1 PONDYLOLYSISL4 ON 5 2MM RETROLISTHESIS MENISCAL TEAR OF R KNEE MRI 02/2015 COMPLEX TEAR LATERAL HORN CHRONIC SUPPARATIVE HIDRADENITIS NOT CONTROLLED LONG C PROPHYLACTIC ANTIBIOTICS; NUMEROUS PROCEDURES NICOTINE USE DISORDER LVEF 55-60%, MILD LAE, PASP 32, MILD MR BY 03/2019 [facility] B NONDIPSLACED NASAL BONE FRACTURES BY 03/2019 CT HEAD PANSINUSITIS BY 03/2019 CT HEAD GALLBLADDER INFLAMMATION AND SLUDGE CARPAL TUNNEL BILATERAL CELLULITIS BILATERAL LEGS ALLERGIES CHANTIX: IRRITABLE - SIDE EFFECTS ADHESIVE TAPE: RASH - ALLERGY EPSOM SALT/PERFEUMED: RASH - ALLERGY CEFTRIAXONE: ANAPHYLAXIS - ALLERGY SURGICAL HISTORY APPENDECTOMY TUBAL LIGATION HYSTERECTOMY CHOLECYSTECTOMY COLONOSCOPY WITH POLYPS 2010 CARPAL TUNNEL REPAIR LEFT 03/19/2020 FAMILY HISTORY FATHER: 65 YRS, HTN,MD,SKIN CANCER MOTHER: 54 YRS, MD, DIAGNOSED WITH OTHER MALIGNANT NEOPLASM OF UNSPECIFIED SITE SIBLINGS: ALIVE SON(S): ALIVE DAUGHTER(S): ALIVE PATERNAL GRAND FATHER: , MD PATERNAL GRAND MOTHER: , STROKE.CERVIX CANCER MATERNAL GRAND FATHER: , MD 2 BROTHER(S) , 2 SISTER(S) . 1 SON(S) , 1 DAUGHTER(S) - HEALTHY. ONE SISTER DIABETES,ASTHMA.UNKNOWN IF FAMILY HX OF MELANOMA AND PANCREATIC CANCER. SOCIAL HISTORY GENERAL: TOBACCO USE ARE YOU A:CURRENT SMOKER ARE YOU INTERESTED IN QUITTING?NOT READY TO QUIT COUNSELED THE PATIENT ON SMOKING EFFECTS, EDUCATION [id number]/2020 HOW MANY CIGARETTES A DAY DO YOU SMOKE?6-10 HOW SOON AFTER YOU WAKE UP DO YOU SMOKE YOUR FIRST CIGARETTE?WITHIN 5 MIN HOW OFTEN DO YOU SMOKE CIGARETTES?EVERY DAY PATIENT COUNSELED ON THE DANGERS OF TOBACCO USE AND URGED TO QUIT:05/11/2020 LATEX QUESTIONNAIRE LATEX ALLERGY : HAVE YOU EVER DEVELOPED ANY TYPE OF REACTION AFTER HANDLING LATEX PRODUCTS SUCH RUBBER GLOVES, CONDOMS, DIAPHRAGMS, BALLOONS, SOCKS, OR UNDERWEAR?NO LATEX ALLERGY : HAVE YOU EVER DEVELOPED ANY TYPE OF REACTION DURING OR AFTER DENTAL APPOINTMENT, VAGINAL/RECTAL EXAMINATION, SURGICAL PROCEDURE, OR ANY OTHER EXPOSURE?NO LATEX RISK : HAVE YOU EVER HAD ANY DIFFICULTY BREATHING OR HIVES AFTER EATING OR HANDLING ANY FRUITS, OR VEGETABLES; SUCH KIWI, BANANAS, STONE FRUITS, OR CHESTNUTSNO LATEX RISK : DO YOU HAVE A PREVIOUS PERSONAL HISTORY OF MORE THAN NINE SURGERIES, SPINA BIFIDA, OR REPEATED CATHERIZATIONS? NO LATEX RISK : ARE YOU FREQUENTLY EXPOSED TO LATEX PRODUCTS IN YOUR OCCUPATION?NO DATE ASKED : 05/11/2020 BMI CARE GOAL FOLLOW-UP ABOVE NORMAL BMI FOLLOW-UPDIETARY MANAGEMENT EDUCATION, GUIDANCE, AND COUNSELING ALCOHOL SCREENING DID YOU HAVE A DRINK CONTAINING ALCOHOL IN THE PAST YEAR?NO POINTS0 INTERPRETATIONNEGATIVE RECREATIONAL DRUG USE DRUG USE?NO CAFFEINE CAFFEINE USE?YES HOW OFTEN AND HOW MUCH? 1-2 SEXUAL HX HAD SEX IN THE LAST 12 MONTHS (VAGINAL, ORAL, OR ANAL)?NO HAVE YOU EVER HAD AN STD?NO HIV / HEP-C SCREENING HIV TEST OFFERED TO PATIENT:YES DATE OFFERED:07/27/2016 TEST ACCEPTED:NO HEP-C TEST OFFERED TO PATIENT:YES DATE OFFERED:09/03/2017 REASON:PATIENT DECLINED TEST ACCEPTED:NO REASON:PATIENT DECLINED BROCHURE PROVIDED TO PATIENTYES ANGLICAN [id number] CONGREGATIONAL LANGUAGE LANGUAGES SPOKEN:MONTENEGRIN EDUCATION LEVEL OF EDUCATION:HIGH SCHOOL LEARNING BARRIERS / SPECIAL NEEDS CHANGE FROM LAST VISIT?NO BARRIERS TO LEARNING?NO HEARING IMPAIRED?NO VISION IMPAIRED?YES READING GLASSES :CORRECTIVE LENSES COGNITIVELY IMPAIRED?NO READINESS TO LEARN?YES LEARNING PREFERENCES?NO LEARNING CAPABILITIES PRESENT?YES EMOTIONAL BARRIERS?NO SPECIAL DEVICES?NO CHASSIS WIRER NEEDED?NO DOMESTIC VIOLENCE DO YOU FEEL SAFE IN YOUR ENVIRONMENT?YES OCCUPATION: UNEMPLOYED. DIET: NO CONCENTRATED SWEETS.. EXERCISE: WALKS 2 BLOCKS EVERYDAY. MARITAL STATUS: . OTHERS AT HOME: SPOUSE, SON & GIRLFRIEND C PT.; DAUGHTER LIVES IN OWN APT. UPSTAIRS CLOSE TO HELP. PAIN CLINIC PFS, CLERGY, PUBLIC HEALTH REFERRALS HAS THE PATIENT BEEN EDUCATED REGARDING HIS/HER PLAN OF CARE?YES HAS THE PATIENT BEEN EDUCATED REGARDING PAIN, THE RISK FOR PAIN, THE IMPORTANCE OF EFFECTIVE PAIN MANAGEMENT, AND THE PAIN ASSESSMENT PROCESS?YES ADVANCE DIRECTIVE ADVANCE DIRECTIVE DISCUSSED WITH PATIENT:YES 05/11/2020 PT STATES SHE DOES NOT HAVE ANY ADVANCED DIRECTIVES AND SHE DECLINES INFORMATION ON HCP AT THIS TIME HOSPITALIZATION/MAJOR DIAGNOSTIC PROCEDURE CELLULITIS RIGHT LEG 2012 ASTHMA EXACERBATION/STEMI SP CX [facility] 03/10-03/13/19 VITAL SIGNS WT 282.2 LBS, HT 62 IN, BMI 51.61 INDEX, BP 156/83 MM HG, HR 109 /MIN, RR 18 /MIN, TEMP 96.2 F, OXYGEN SAT % 98%, SAFE IN ENV? (Y/N) Y, NA INITIALS AW 0955, REVIEWED BY: Dell GALICIA RN. EXAMINATION GENERAL EXAMINATION: THE PATIENT IS ALERT, ORIENTED TIMES THREE AND COOPERATIVE. HEART SHOWS REGULAR RHYTHM, NO MURMURS AND NO GALLOPS. LUNGS ARE CLEAR TO AUSCULTATION. ASSESSMENTS SACROILIITIS - M46.1 (PRIMARY) SACROILIAC JOINT DYSFUNCTION - M53.3 TREATMENT SACROILIITIS [facility] FLUORO GUIDANCE (PAIN)[id number] MEDICATION: OXYCODONE HCL TAB 5MG ORALLY MARICHUY CARDOZO 05/12/2020 10:37:07 AM > VERIFIED LOT [id number] ROSALINDA GALICIA 05/12/2020 10:41:03 AM > ADMINISTERED SALINE LOCKROSALINDA GALICIA 05/12/2020 11:09:02 AM > STARTED BY Jade BETANCUR RN AFTER UNSUCCUESSFUL ATTEMPT BY Olga CARDOZO RN. #22G IN RIGHT AC PROCEDURES PAIN NURSING RECORD PRE-PROCEDURE IV SITE RIGHT ANTECUBITAL IV ATTEMPT RIGHT HAND DINORA RN, IV STARTED # 22, IV STARTED BY: Jade BETANCUR, DENISE, IV ATTEMPTS 2, PRE-PROCEDURE ORAL MEDICATIONS SEE MEDICATION ORDERS PROCEDURE IN ROOM 1057, PHYSICIAN IN ROOM 1120, START 1123, FINISH 1128, PHYSICIAN OUT OF ROOM 1129, OUT OF ROOM 1135, STEROID KENALOG, O2 RA, ECG NORMAL SINUS, PATIENT SHIELDED YES, SAFETY STRAP YES, PREP CHLOROPREP BY Dell GALICIA RN, IV INFUSED N/A, DRESSING TEGADERM BY DR. HARRIS LOC: ROSALINDA GALICIA 05/12/2020 10:29:56 AM > 1. ALERT, ORIENTED ROSALINDA GALICIA 05/12/2020 11:52:26 AM > 1. ALERT, ORIENTED RESP: ROSALINDA GALICIA 05/12/2020 10:30:01 AM > 1. REGULAR, NO DYSPNEA ROSALINDA GALICIA 05/12/2020 11:52:30 AM > 1. REGULAR, NO DYSPNEA COLOR: GRAYSONROSALINDA 05/12/2020 10:30:05 AM > 1. PINK GRAYSONELKHART 05/12/2020 11:52:34 AM > 1. PINK SKIN: GRAYSONELKHART 05/12/2020 10:30:13 AM > 1. WARM, DRY GRAYSONELKHART 05/12/2020 11:52:39 AM > 1. WARM, DRY POSITION: GRAYSONELKHART 05/12/2020 11:00:47 AM > 1. PRONE GRAYSONELKHART 05/12/2020 11:52:51 AM > 4. OTHER-SITTING VITALS: GRAYSONELKHART 05/12/2020 11:00:56 AM > 172/85,88,16,94% GRAYSONELKHART 05/12/2020 11:14:11 AM > 158/78,92,16,94% GRAYSONELKHART 05/12/2020 11:28:37 AM > 159/80,94,16,94% GRAYSONELKHART 05/12/2020 11:34:03 AM > 168/86,99,16,94% GRAYSONELKHART 05/12/2020 11:48:33 AM > 148/77,90,18,97% DISCHARGE: POST PAIN 0, DRESSING SITE DRY AND INTACT, IV DISCONTINUED, SITE CLEAR, CATHETER INTACT, GAIT STEADY, TEACHING COMPLETED, PATIENT ACKNOWLEDGES UNDERSTANDING YES PRINTED POST PROCEDURE INSTRUCTIONS AND COVID SYMPTOM MONITORING INSTRUCTIONS GIVEN TO AND REVIEWED WITH PT. AND SHE VERBALIZED UNDERSTANDING., PATIENT DISCHARGED AT 1153 PN SI PRE PROCEDURE DIAGNOSIS SACROILIITIS, SACROILIAC JOINT DYSFUNCTION POST PROCEDURE DIAGNOSIS SACROILIITIS, SACROILIAC JOINT DYSFUNCTION PROCEDURE BILATERAL SACROILIAC JOINT BLOCK SURGEON DR. ZELAD HARRIS ELECTRIC WIRER NONE ANESTHESIA LOCAL PRE PROCEDURE NOTE THE PATIENT WITH HISTORY OF CHRONIC LOW BACK PAIN. I EVALUATED THE PATIENT AND REVIEWED THE CHART. I WENT OVER THE RISKS, ALTERNATIVES, AND BENEFITS ASSOCIATED WITH THIS PROCEDURE. I DISCUSSED THAT THE USE OF STEROIDS MAY CONTRIBUTE TO IMMUNOSUPPRESSION OF THE PATIENT'S BODY AGAINST INFECTIONS SUCH COVID-19. THE PATIENT IS AWARE OF THE POTENTIAL COMPLICATIONS ASSOCIATED WITH THIS VIRUS, INCLUDING, BUT NOT LIMITED TO, . THE PATIENT WOULD LIKE TO PROCEED AND GAVE CONSENT TO PERFORM THE PROCEDURE. THE PATIENT DENIES UNEXPLAINABLE WEIGHT LOSS, FEVER, CHILLS, OR NEW CHANGES IN URINARY OR BOWEL CONTROL. THE PATIENT IS COVID-19 NEGATIVE DESCRIPTION OF PROCEDURE THE PATIENT WAS BROUGHT TO THE PROCEDURE ROOM AND PLACED IN THE PRONE POSITION. THE LUMBOSACRAL AREA WAS CLEANED WITH CHLORAPREP SOLUTION AND DRAPED ASEPTICALLY. THE PROCEDURE WAS DONE UNDER STERILE CONDITIONS. A TIMEOUT WAS PERFORMED WHERE LATERALITY AND THE SITE OF THE PROCEDURE WERE CHECKED AND CONFIRMED WITH EVERYONE IN THE ROOM. UNDER FLUOROSCOPIC GUIDANCE, THE TARGET POINT WAS SELECTED AT THE LOWER BORDER OF THE RIGHT AND LEFT SACROILIAC JOINT. TARGET POINT WAS SELECTED AFTER MEDIAL ROTATION AND TILT OF THE MAGNIFIER OR THE C-ARM. I CONFIRMED AGAIN WITH EVERYONE IN THE ROOM THE LATERALITY OF THE TARGET AT 1123. LIDOCAINE 0.5% WAS USED TO NUMB THE SKIN AND THE SUBCUTANEOUS TISSUE BELOW IT. SPINAL NEEDLES, 22-GAUGE, WERE ADVANCED UNDER FLUOROSCOPIC GUIDANCE AND FOLLOWING PATIENT FEEDBACK UNTIL THE TARGETS WERE TOUCHED. THE POSITION OF THE NEEDLES WAS VERIFIED WITH AP AND OBLIQUE VIEWS. AFTER PROPER POSITION OF THE NEEDLES WAS ACHIEVED, ISOVUE-M DYE 30%, 0.1 ML, WAS INJECTED SHOWING ADEQUATE SPREAD OF THE DYE. KENALOG 40 MG WAS INJECTED AT EACH SITE. THEN, A SOLUTION OF 3.0 ML OF BUPIVACAINE 0.125% WAS USED TO FLUSH EACH NEEDLE. THE MEDICATIONS WERE VERIFIED WITH THE NURSE. THERE WAS NO EVIDENCE OF BLOOD, PARESTHESIA OR CEREBROSPINAL FLUID DURING THE PROCEDURE. THE PATIENT WAS SENT TO THE RECOVERY ROOM. THE PATIENT WAS MOVING THE EXTREMITIES AND DOING WELL. THERE WERE NO COMPLICATIONS DURING THE PROCEDURE. ESTIMATED BLOOD LOSS WAS LESS THAN 5 ML. FLUOROSCOPIC TIME WAS 15 SECONDS. POST PROCEDURE NOTE THE PROCEDURE DONE WAS DISCUSSED WITH THE PATIENT. THE PATIENT WILL BE SEEN IN A FOLLOW UP IN THE NEXT FEW WEEKS. I AM LOOKING FOR LONG LASTING PAIN RELIEF FOR THE PATIENT WITH THIS INTERVENTION. INSTRUCTIONS WERE GIVEN, QUESTIONS WERE ANSWERED, AND THE PATIENT EXPRESSED UNDERSTANDING AND AGREES WITH THE PLAN. I, WAQAS DE LA TORRE, DOCUMENTED THE ABOVE INFORMATION ACTING A SCRIBE FOR DR. HARRIS. I HAVE REVIEWED THE ABOVE DOCUMENT, WRITTEN BY WAQAS DE LA TORRE, RN CRITICAL CARE, AND I VERIFY THAT IT IS ACCURATE PROCEDURE CODES 13154 INJECT SACROILIAC JOINT, MODIFIERS: 50 DISPOSITION & COMMUNICATION FOLLOW UP FOLLOW UP WITH FINANCIAL MANAGEMENT ANALYST (REASON: POST BILATERAL SACROILIAC JOINT BLOCK) ELECTRONICALLY SIGNED BY ZELDA HARRIS MD, MD ON 05/13/2020 AT 01:15 PM EST DISCLAIMER : THIS IS A VISIT SUMMARY EXTRACTED FROM THE [employer] CHART. IT IS NOT A COPY OF THE [employer] PROGRESS NOTE. YASMINE
== END ==
LOC: M PAIN 10:00
PROVIDERS: ATTEND Anesthesiology
DX: M46.1 Sacroiliitis, not elsewhere classified (principal); M53.3 Sacrococcygeal disorders, not elsewhere classified; E11.40 Type 2 diabetes mellitus with diabetic neuropathy, unspecified; G47.33 Obstructive sleep apnea (adult) (pediatric); J45.40 Moderate persistent asthma, uncomplicated; K21.9 Gastro-esophageal reflux disease without esophagitis; F17.210 Nicotine dependence, cigarettes, uncomplicated; Z86.59 Personal history of other mental and behavioral disorders; Z88.1 Allergy status to other antibiotic agents; Z88.8 Allergy status to other drugs, medicaments and biological substances; Z91.09 Other allergy status, other than to drugs and biological substances; E66.01 Morbid (severe) obesity due to excess calories; Z68.43 Body mass index [BMI] 50.0-59.9, adult; Z79.4 Long term (current) use of insulin; Z79.82 Long term (current) use of aspirin; Z79.899 Other long term (current) drug therapy
CPT/HCPCS: 27096; J3301; Q9967

== ENCOUNTER → 2020-05-24 | Outpatient (CLI) | payer OTHER ==
[~2020-05-24] MED LIST changes: -BUPIVACAINE HCL 0.25% 30ML VIAL As Ordered ONE; -ISOVUE-M 300 61% 15ML VIAL As Ordered ONE; -LIDOCAINE 1% SDV 30ML VIAL As Ordered ONE; -TRIAMCINOLONE ACETONIDE SUSP 40 MG/ML VIAL (J3301) As Ordered ONE; -oxyCODONE 5MG TAB As Ordered ONE
--- NOTE | 2020-05-31 02:33 | ECWPNPC ---
PATIENT NAME: CHERYL SYED : 1970 GENDER: FEMALE VISIT DATE: 05/24/2020 DISCHARGE DATE: 05/24/20 1128 VISIT LOCKED DATE TIME: PHYSICIAN: SANDER MCNEAL PHYSICIAN PAGER NO: ACTIVE RESOURCE: SANDER MCNEAL REASON FOR APPOINTMENT 1. POST BILATERAL SACROILIAC JOINT INJECTION/MED HOLD HISTORY OF PRESENT ILLNESS GENERAL: HERE FOR POST PROCEDURE FOLLOW-UP. HAD BILATERAL SACROILIAC JOINT BLOCK ON 05/12/2020. REPORTING IMPROVEMENT IN PAIN POST PROCEDURE THAT CONTINUES TODAY. REPORTING SEVERE NIGHT TIME LOW BACK PAIN OVER THE PAST FEW WEEKS. PAIN WAKES HER UP AT NIGHT. DURING THE DAYTIME HER PAIN IS OKAY. RATING PAIN LEVEL A 2/10 VAS. REVIEWED MRI OF THE LS-SPINE AND DISCUSSED MEDICATION/TREATMENT PLAN.-. FALL RISK SCREENING: SCREENING :NO FALLS REPORTED IN THE LAST YEAR PAIN SCREENING: PATIENT HAS A COMPLAINT OF ACUTE OR CHRONIC PAIN :YES LOCATION OF PAIN:LOW BACK INTENSITY OF PAIN (SCALE OF 1 TO 10):2 WHAT DOES YOUR PAIN FEEL LIKE:BURNING, CONTINOUS, SHARP, INTERMITTENT, SHOOTING NURSING NOTE: -. PAIN CENTER INTAKE QUESTIONS: DO YOU HAVE A HISTORY OF MRSA? :NO DO YOU TAKE A BLOOD THINNERS? :NO DO YOU HAVE ANY BLEEDING DISORDERS? :NO ANY NEW NUMBNESS OR WEAKNESS IN YOUR LEGS OR ARMS? :YES WAKING UP IN THE NIGHT BECAUSE OF LOWER BACK PAIN ANY PACEMAKER,DEFIBRILLATOR, OR DORSAL COLUMN STIMULATOR? :NO DO YOU HAVE ANY RASHES OR OPEN SORES? :NO ARE YOU ALLERGIC TO IV DYE? :NO ARE YOU DIABETIC? :YES ANY NEW PROBLEMS WITH YOUR MEDICATIONS? :NO HAVE YOU RECEIVED A VACCINE IN THE PAST 30 DAYS? :NO DO YOU PLAN TO RECEIVE A VACCINE IN THE NEXT 21 DAYS? :NO DO YOU NEED ANY PRESCRIPTION? :NO DO YOU TAKE ANY IMMUNOSUPPRESSIVE MEDICATIONS? :NO IS THERE A CHANCE YOU COULD BE ? :NO ARE YOU BREAST FEEDING? :NO CURRENT MEDICATIONS TAKING BD PEN NEEDLE MINI U/F 31G X 5 MM MISCELLANEOUS 1 NEEDLE SUBCUTANEOUSLY THREE TIMES DAILY NEEDED TAKING CLOPIDOGREL BISULFATE 75 MG TABLET 1 TABLET ORALLY ONCE A DAY, NOTES: 05/04 TAKING NITROGLYCERIN 0.4 MG TABLET SUBLINGUAL DIRECTED SUBLINGUAL ONE TABLET UNDER THE TONGUE EVERY 5 MIN FOR UP TO 3 DOSES PRN, IF CHEST PAIN STILL PERSISTS CONTACT 911, NOTES: NONE RECENT TAKING ASPIRIN 81 MG TABLET CHEWABLE 1 TABLET ORALLY ONCE A DAY TAKING SPIRONOLACTONE 25 MG TABLET 1 TABLET ORALLY EVERY MORNING TAKING ADVAIR DISKUS 250-50 MCG/DOSE AEROSOL POWDER BREATH ACTIVATED 1 PUFF INHALATION TWICE A DAY TAKING ALBUTEROL SULFATE (2.5 MG/3ML) 0.083% NEBULIZATION SOLUTION 3 ML NEEDED INHALATION THREE TIMES A DAY TAKING MONTELUKAST SODIUM 10 MG TABLET 1 TABLET ORALLY AT BEDTIME TAKING LANSOPRAZOLE 30 MG CAPSULE DELAYED RELEASE 1 CAPSULE ORALLY BID TAKING ROPINIROLE HCL 0.25 MG TABLET 1 TABLET 1 TO 3 HOURS BEFORE BEDTIME ORALLY BEFORE BEDTIME TAKING MAY HAVE - - LEFT COCKUP WRIST SPLINT TOPICALLY BEFORE BEDTIME TAKING METFORMIN HCL 500MG TABLET TAKE 2 TABLETS BY MOUTH IN THE MORNING AND 1 TABS WITH DINNER DAILY ORALLY BID, NOTES: 05/11 2100 TAKING ALOGLIPTIN BENZOATE 6.25 MG TABLET DIRECTED ORALLY DAILY, NOTES: 05/11 2100 TAKING ONE TOUCH ULTRA BLUE STRIPS 1 STRIP DX E11.69 SUBCUTANEOUSLY QID TAKING COMBIVENT RESPIMAT 20-100 MCG/ACT AEROSOL 1 PUFF INHALATION FOUR TIMES DAILY TAKING ADMELOG SOLOSTAR 100 UNIT/ML SOLUTION PEN-INJECTOR DIRECTED IN SSI SUBCUTANEOUS EACH MEAL, NOTES: 05/11 1700 TAKING ATORVASTATIN CALCIUM 80 MG TABLET 1 TABLET ORALLY ONCE A DAY TAKING EZETIMIBE 10 MG TABLET 1 TABLET ORALLY ONCE A DAY, NOTES: 05/11 900 TAKING BISOPROLOL FUMARATE 5 MG TABLET 1 TABLET ORALLY BID, NOTES: 05/11 900 TAKING LISINOPRIL 10 MG TABLET 1 TABLET ORALLY EVERY MORNING, NOTES: 05/11 900 TAKING AMLODIPINE 10 MG TABLET 1/2 TAB ORALLY EVERY MORNING, NOTES: 05/11 900 TAKING BASAGLAR KWIKPEN 100 UNIT/ML SOLUTION PEN-INJECTOR 55 UNITS SUBCUTANEOUS BEFORE BEDTIME, NOTES: 05/11 2100 NOT-TAKING RIFAMPIN 300 MG CAPSULE DIRECTED ORALLY BID NOT-TAKING GABAPENTIN 300 MG CAPSULE 1 CAPSULE ORALLY TID NOT-TAKING BACLOFEN 10 MG TABLET 1 TABLET WITH FOOD OR MILK ORALLY THREE TIMES A DAY NOT-TAKING KETOCAL 2 TABS ORALLY DAILY MEDICATION LIST REVIEWED AND RECONCILED WITH THE PATIENT PAST MEDICAL HISTORY CAD SP STEMI 03/10/19 (PEAK T-I 107) SP SCOT ANURAG-DRE-DR. 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 , C6-7 S CORD COMPRESSION MRI 03/2014 @ [facility] LUMBAR SPINE XRAYS 06/16 @ [facility] AFTER FALL C OLD B L5-S1 PONDYLOLYSISL4 ON 5 2MM RETROLISTHESIS MENISCAL TEAR OF R KNEE MRI 02/2015 COMPLEX TEAR LATERAL HORN CHRONIC SUPPARATIVE HIDRADENITIS NOT CONTROLLED LONG C PROPHYLACTIC ANTIBIOTICS; NUMEROUS PROCEDURES NICOTINE USE DISORDER LVEF 55-60%, MILD LAE, PASP 32, MILD MR BY 03/2019 [facility] B NONDIPSLACED NASAL BONE FRACTURES BY 03/2019 CT HEAD PANSINUSITIS BY 03/2019 CT HEAD GALLBLADDER INFLAMMATION AND SLUDGE CARPAL TUNNEL BILATERAL CELLULITIS BILATERAL LEGS ALLERGIES CHANTIX: IRRITABLE - SIDE EFFECTS ADHESIVE TAPE: RASH - ALLERGY EPSOM SALT/PERFEUMED: RASH - ALLERGY CEFTRIAXONE: ANAPHYLAXIS - ALLERGY SURGICAL HISTORY APPENDECTOMY TUBAL LIGATION HYSTERECTOMY CHOLECYSTECTOMY COLONOSCOPY WITH POLYPS 2010 CARPAL TUNNEL REPAIR LEFT 03/19/2020 FAMILY HISTORY FATHER: 65 YRS, HTN,CA,SKIN CANCER MOTHER: 54 YRS, CA, DIAGNOSED WITH OTHER MALIGNANT NEOPLASM OF UNSPECIFIED SITE SIBLINGS: ALIVE SON(S): ALIVE DAUGHTER(S): ALIVE PATERNAL GRAND FATHER: , CA PATERNAL GRAND MOTHER: , STROKE.CERVIX CANCER MATERNAL GRAND FATHER: , CA 2 BROTHER(S) , 2 SISTER(S) . 1 SON(S) , 1 DAUGHTER(S) - HEALTHY. ONE SISTER DIABETES,ASTHMA.UNKNOWN IF FAMILY HX OF MELANOMA AND PANCREATIC CANCER. SOCIAL HISTORY GENERAL: TOBACCO USE ARE YOU A:CURRENT SMOKER HOW OFTEN DO YOU SMOKE CIGARETTES?EVERY DAY HOW SOON AFTER YOU WAKE UP DO YOU SMOKE YOUR FIRST CIGARETTE?WITHIN 5 MIN HOW MANY CIGARETTES A DAY DO YOU SMOKE?6-10 ARE YOU INTERESTED IN QUITTING?NOT READY TO QUIT PATIENT COUNSELED ON THE DANGERS OF TOBACCO USE AND URGED TO QUIT:05/11/2020 COUNSELED THE PATIENT ON SMOKING EFFECTS, EDUCATION [id number]/18/2020 LATEX QUESTIONNAIRE LATEX ALLERGY : HAVE YOU EVER DEVELOPED ANY TYPE OF REACTION AFTER HANDLING LATEX PRODUCTS SUCH RUBBER GLOVES, CONDOMS, DIAPHRAGMS, BALLOONS, SOCKS, OR UNDERWEAR?NO LATEX ALLERGY : HAVE YOU EVER DEVELOPED ANY TYPE OF REACTION DURING OR AFTER DENTAL APPOINTMENT, VAGINAL/RECTAL EXAMINATION, SURGICAL PROCEDURE, OR ANY OTHER EXPOSURE?NO DATE ASKED : 05/11/2020 LATEX RISK : HAVE YOU EVER HAD ANY DIFFICULTY BREATHING OR HIVES AFTER EATING OR HANDLING ANY FRUITS, OR VEGETABLES; SUCH KIWI, BANANAS, STONE FRUITS, OR CHESTNUTSNO LATEX RISK : DO YOU HAVE A PREVIOUS PERSONAL HISTORY OF MORE THAN NINE SURGERIES, SPINA BIFIDA, OR REPEATED CATHERIZATIONS? NO LATEX RISK : ARE YOU FREQUENTLY EXPOSED TO LATEX PRODUCTS IN YOUR OCCUPATION?NO BMI CARE GOAL FOLLOW-UP ABOVE NORMAL BMI FOLLOW-UPDIETARY MANAGEMENT EDUCATION, GUIDANCE, AND COUNSELING ALCOHOL SCREENING DID YOU HAVE A DRINK CONTAINING ALCOHOL IN THE PAST YEAR?NO POINTS0 INTERPRETATIONNEGATIVE RECREATIONAL DRUG USE DRUG USE?NO CAFFEINE CAFFEINE USE?YES HOW OFTEN AND HOW MUCH? 1-2 SEXUAL HX HAD SEX IN THE LAST 12 MONTHS (VAGINAL, ORAL, OR ANAL)?NO HAVE YOU EVER HAD AN STD?NO HIV / HEP-C SCREENING HIV TEST OFFERED TO PATIENT:YES DATE OFFERED:07/27/2016 TEST ACCEPTED:NO HEP-C TEST OFFERED TO PATIENT:YES DATE OFFERED:09/03/2017 REASON:PATIENT DECLINED TEST ACCEPTED:NO REASON:PATIENT DECLINED BROCHURE PROVIDED TO PATIENTYES TENRIISM [id number] CONGREGATIONAL LANGUAGE LANGUAGES SPOKEN:CROATIAN EDUCATION LEVEL OF EDUCATION:HIGH SCHOOL LEARNING BARRIERS / SPECIAL NEEDS CHANGE FROM LAST VISIT?NO BARRIERS TO LEARNING?NO HEARING IMPAIRED?NO VISION IMPAIRED?YES READING GLASSES COGNITIVELY IMPAIRED?NO :CORRECTIVE LENSES READINESS TO LEARN?YES LEARNING PREFERENCES?NO LEARNING CAPABILITIES PRESENT?YES EMOTIONAL BARRIERS?NO SPECIAL DEVICES?NO VICE PRESIDENT OF ENGINEERING NEEDED?NO DOMESTIC VIOLENCE DO YOU FEEL SAFE IN YOUR ENVIRONMENT?YES OCCUPATION: UNEMPLOYED. DIET: NO CONCENTRATED SWEETS.. EXERCISE: WALKS 2 BLOCKS EVERYDAY. MARITAL STATUS: . OTHERS AT HOME: SPOUSE, SON & GIRLFRIEND C PT.; DAUGHTER LIVES IN OWN APT. UPSTAIRS CLOSE TO HELP. PAIN CLINIC PFS, CLERGY, PUBLIC HEALTH REFERRALS HAS THE PATIENT BEEN EDUCATED REGARDING HIS/HER PLAN OF CARE?YES HAS THE PATIENT BEEN EDUCATED REGARDING PAIN, THE RISK FOR PAIN, THE IMPORTANCE OF EFFECTIVE PAIN MANAGEMENT, AND THE PAIN ASSESSMENT PROCESS?YES ADVANCE DIRECTIVE ADVANCE DIRECTIVE DISCUSSED WITH PATIENT:YES 05/11/2020 PT STATES SHE DOES NOT HAVE ANY ADVANCED DIRECTIVES AND SHE DECLINES INFORMATION ON HCP AT THIS TIME HOSPITALIZATION/MAJOR DIAGNOSTIC PROCEDURE CELLULITIS RIGHT LEG 2012 ASTHMA EXACERBATION/STEMI SP CX SCOT-[facility] 03/10-03/13/19 REVIEW OF SYSTEMS CONSTITUTIONAL: ANY RECENT FEVER NO . CHILLS NO . WEIGHT CHANGE OF UNKNOWN REASONS NO . GASTROENTEROLOGY: NEW UNEXPLAINABLE CHANGES IN BOWEL CONTROL NO . CONSTIPATION NO . GENITOURINARY: ANY NEW CHANGE IN BLADDER CONTROL? NO . NEUROLOGY: NEW ONSET DIZZINESS OR NEUROLOGICAL CHANGES NOT MENTIONED NO . NEW NUMBNESS OR PAIN PATTERNS NOT MENTIONED AND PERTINENT TO TODAY'S VISIT NO . CARDIOLOGY: NEW CHEST PRESSURE NO . NEW CHEST PAIN NO . RESPIRATORY: UNEXPLAINABLE COUGH NO . NEW SHORTNESS OF BREATH NO . VITAL SIGNS WT 282.2 LBS, HT 62 IN, BMI 51.61 INDEX, BP 178/94 MM HG, HR 87 /MIN, RR 18 /MIN, TEMP 97.4 F, OXYGEN SAT % 98%, SAFE IN ENV? (Y/N) YES, NA INITIALS AW 1046, REVIEWED BY: KG. EXAMINATION GENERAL EXAMINATION: GENERAL AWAKE,ALERT ,PLEASANT . PSYCH AFFECT NORMAL . LUNGS: LUNG HO[place] ARE CLEAR TO AUSCULTATION BILATERALLY. GOOD MOVEMENT OF AIR . HEART: S1, S2 IN A REGULAR RATE AND RHYTHM. NO SIGNIFICANT MURMURS, RUBS OR GALLOPS NOTED . LUMBAR:TENDERNESS NOTED OVER LS-SPINE . ASSESSMENTS SACROILIITIS - M46.1 (PRIMARY) OTHER CHRONIC PAIN - G89.29 TREATMENT SACROILIITIS START AMITRIPTYLINE HCL TABLET, 25 MG, 1 TABLET AT BEDTIME, ORALLY, BEFORE BEDTIME, 30 DAY(S), 30, REFILLS 2 NOTES: ADVISED TO START AMITRIPTYLINE 25 MG 1 TABLET AT NIGHT TIME FOR NIGHTTIME AWAKENINGS DUE TO PAIN. FOLLOW-UP IS SCHEDULED IN 6 WEEKS. CONSIDER INTERVENTIONAL TREATMENT IF NO IMPROVEMENT WITH AMITRIPTYLINE. OTHER CHRONIC PAIN PAIN PROCEDURE LOGDATE OF [id number]/10/2020PROCEDURE:BILATERAL SACROILLIAC JOINT BLOCKAMOUNT OF PRE SEDATEOXYCODONE 5 MGRESULT:REPORTS IMPROVEMENT IN PAIN THAT CONTINUES TODAY PROCEDURE CODES FA211 ESTABILISHED PATIENT [facility] CHARGE DISPOSITION & COMMUNICATION FOLLOW UP 6 WEEKS (REASON: MEDICATION MANAGEMENT/NEW START OF AMITRIPTYLINE 25 MG AT BEDTIME ON 05/23/2020) ELECTRONICALLY SIGNED BY KEIKO COLEMAN ON 05/30/2020 AT 08:23 PM EST DISCLAIMER : THIS IS A VISIT SUMMARY EXTRACTED FROM THE [employer] CHART. IT IS NOT A COPY OF THE [employer] PROGRESS NOTE. YASMINE
== END ==
LOC: M PAIN 10:45
PROVIDERS: ATTEND Nurse Practitioner Family
DX: M46.1 Sacroiliitis, not elsewhere classified (principal); G89.29 Other chronic pain; E11.40 Type 2 diabetes mellitus with diabetic neuropathy, unspecified; J45.40 Moderate persistent asthma, uncomplicated; G47.33 Obstructive sleep apnea (adult) (pediatric); F17.210 Nicotine dependence, cigarettes, uncomplicated; Z86.59 Personal history of other mental and behavioral disorders; Z88.1 Allergy status to other antibiotic agents; Z88.8 Allergy status to other drugs, medicaments and biological substances; Z91.09 Other allergy status, other than to drugs and biological substances; E66.01 Morbid (severe) obesity due to excess calories; Z68.43 Body mass index [BMI] 50.0-59.9, adult; Z79.4 Long term (current) use of insulin; Z79.82 Long term (current) use of aspirin; Z79.899 Other long term (current) drug therapy

== ENCOUNTER → 2020-06-22 | Outpatient (REF) | payer OTHER ==
[~2020-06-22] MED LIST changes: +GABA-282; +GABA-282 PO; -GABA-843; -GABA-843 PO; -LISI-542 PO; +LISI-898 PO; +LISI10TA22; +LISI10TA22 PO; -LISI10TA4; -LISI10TA4 PO; +MONT10TA10; +MONT10TA10 PO; -MONT5TAB2; -MONT5TAB2 PO
[2020-06-22 10:37] LABS: BASO % 0.5 % (0.0-1.0); EOS # 0.1 10^3/uL (0.0-0.5); EOS % 1.1 % (0.0-3.0); HEMATOCRIT 42.9 % (36.0-47.0); HEMOGLOBIN 14.5 g/dl (12.0-15.5); LYMPH # 2.8 10^3/uL (1.5-5.0); LYMPH % 31.4 % (24.0-44.0); MEAN CORPUSCULAR HEMOGLOBIN 31.5 pg (27.0-33.0); MEAN CORPUSCULAR HGB CONC 33.8 g/dl (32.0-36.5); MEAN CORPUSCULAR VOLUME 93.1 fl (80.0-96.0); MONO # 0.8 10^3/uL (0.0-0.8); MONO % 8.5 % (0.0-5.0); NEUTROPHILS # 5.1 10^3/uL (1.5-8.5); PLATELET COUNT, AUTOMATED 240 10^3/uL (150-450); RED BLOOD COUNT 4.61 10^6/uL (4.00-5.40); WHITE BLOOD COUNT 8.8 10^3/uL (4.0-10.0)
[2020-06-22 10:56] LABS: HEMOGLOBIN A1c 7.1 %
[2020-06-22 11:07] LABS: ALBUMIN 3.3 GM/DL (3.2-5.2); ALT/SGPT 53 U/L (12-78); BILIRUBIN,TOTAL 0.3 MG/DL (0.2-1.0); BLOOD UREA NITROGEN 13 MG/DL (7-18); CALCIUM LEVEL 9.1 MG/DL (8.5-10.1); CARBON DIOXIDE LEVEL 30 MEQ/L (21-32); CHLORIDE LEVEL 102 MEQ/L (98-107); CHOLESTEROL LEVEL 213 MG/DL (<200); CHOLESTEROL RISK RATIO 5.195 (<5); CPK CREATINE PHOSPHOKINASE 48 U/L (26-192); CREATININE FOR GFR 0.61 MG/DL (0.55-1.30); GLOMERULAR FILTRATION RATE > 60.0 (>58); GLUCOSE, FASTING 175 MG/DL (70-100); HDL CHOLESTEROL 41 MG/DL (>40); LDL CHOLESTEROL 133 MG/DL (<100); NON-HDL-C 172 MG/DL; POTASSIUM SERUM 4.4 MEQ/L (3.5-5.1); SODIUM LEVEL 139 MEQ/L (136-145); TOTAL PROTEIN 6.3 GM/DL (6.4-8.2); TRIGLYCERIDES LEVEL 194 MG/DL (<150)
[2020-06-22 11:19] LABS: MAU/CREAT RATIO 183.4 MCG/MG (0.0-30.0)
== END ==
LOC: M SFHCPLAZ 08:37
PROVIDERS: ATTEND Physician Assistant Medical
DX: I10 Essential (primary) hypertension (principal); E11.69 Type 2 diabetes mellitus with other specified complication; E78.2 Mixed hyperlipidemia

== ENCOUNTER → 2020-07-05 | Outpatient (CLI) | payer OTHER ==
[~2020-07-05] MED LIST changes: +LISI-542 PO; -LISI-898 PO; -LISI10TA22; -LISI10TA22 PO; +LISI10TA4; +LISI10TA4 PO; -MONT10TA10; -MONT10TA10 PO; +MONT5TAB2; +MONT5TAB2 PO
--- NOTE | 2020-07-06 04:07 | ECWPNPC ---
PATIENT NAME: CHERYL SYED : 1970 GENDER: FEMALE VISIT DATE: 07/05/2020 DISCHARGE DATE: 07/05/20 1019 VISIT LOCKED DATE TIME: PHYSICIAN: SANDER MCNEAL PHYSICIAN PAGER NO: ACTIVE RESOURCE: SANDER MCNEAL REASON FOR APPOINTMENT 1. MEDICATION MANAGEMENT/NEW START OF AMITRIPTYLINE 25 MG AT BEDTIME ON 05/23/2020 HISTORY OF PRESENT ILLNESS DEPRESSION SCREENING: PHQ-2 (2015 EDITION) LITTLE INTEREST OR PLEASURE IN DOING THINGS?NOT AT ALL FEELING DOWN, DEPRESSED, OR HOPELESS?NOT AT ALL TOTAL SCORE0 GENERAL: HERE FOR FOLLOW-UP OF CHRONIC LOW BACK PAIN. PATIENT IS VERY UNCOMFORTABLE TODAY. STATES BOTH HER NECK AND LOW BACK ARE PAINFUL. CHIEF AREA OF PAIN IS LOW BACK. STATES PRIMARY CARE ORDERED MRI IMAGING OF HER SPINE WHICH SHE WILL HAVE DONE THE NEXT FEW DAYS. HAS BENEFITED FROM SI JOINT INJECTIONS IN THE PAST. PATIENT IS ON A BLOOD THINNER. HISTORY OF [place] ONE YEAR AGO. REVIEWED MRI OF THE LS-SPINE.-. FALL RISK SCREENING: SCREENING :NO FALLS REPORTED IN THE LAST YEAR PAIN SCREENING: PATIENT HAS A COMPLAINT OF ACUTE OR CHRONIC PAIN :YES LOCATION OF PAIN:LOW BACK INTENSITY OF PAIN (SCALE OF 1 TO 10):8 WHAT DOES YOUR PAIN FEEL LIKE:SHARP DURATION:CONTINOUS, CONSTANT, ALL DAY PAIN IS INCREASED BY:ACTIVITIES PAIN IS DECREASED BY:OTHERS HEAT NURSING NOTE: -. PAIN CENTER INTAKE QUESTIONS: DO YOU HAVE A HISTORY OF MRSA? :NO DO YOU TAKE A BLOOD THINNERS? :NO DO YOU HAVE ANY BLEEDING DISORDERS? :NO ANY NEW NUMBNESS OR WEAKNESS IN YOUR LEGS OR ARMS? :NO ANY PACEMAKER,DEFIBRILLATOR, OR DORSAL COLUMN STIMULATOR? :NO DO YOU HAVE ANY RASHES OR OPEN SORES? :NO ARE YOU ALLERGIC TO IV DYE? :NO ARE YOU DIABETIC? :YES ANY NEW PROBLEMS WITH YOUR MEDICATIONS? :NO HAVE YOU RECEIVED A VACCINE IN THE PAST 30 DAYS? :NO DO YOU PLAN TO RECEIVE A VACCINE IN THE NEXT 21 DAYS? :NO DO YOU NEED ANY PRESCRIPTION? :NO DO YOU TAKE ANY IMMUNOSUPPRESSIVE MEDICATIONS? :NO IS THERE A CHANCE YOU COULD BE ? :NO ARE YOU BREAST FEEDING? :NO CURRENT MEDICATIONS TAKING GABAPENTIN 300 MG CAPSULE 1 CAPSULE ORALLY TID TAKING BACLOFEN 10 MG TABLET 1 TABLET WITH FOOD OR MILK ORALLY THREE TIMES A DAY TAKING BASAGLAR KWIKPEN 100 UNIT/ML SOLUTION PEN-INJECTOR 55 UNITS SUBCUTANEOUS BEFORE BEDTIME TAKING METFORMIN HCL 500MG TABLET TAKE 2 TABLETS BY MOUTH IN THE MORNING AND 1 TABS WITH DINNER DAILY ORALLY BID TAKING ALOGLIPTIN BENZOATE 6.25 MG TABLET DIRECTED ORALLY DAILY TAKING ADMELOG SOLOSTAR 100 UNIT/ML SOLUTION PEN-INJECTOR DIRECTED IN SSI SUBCUTANEOUS 10 UNITS C EACH MEAL TAKING ONE TOUCH ULTRA BLUE STRIPS 1 STRIP DX E11.69 SUBCUTANEOUSLY QID TAKING BD PEN NEEDLE MINI U/F 31G X 5 MM MISCELLANEOUS 1 NEEDLE SUBCUTANEOUSLY THREE TIMES DAILY NEEDED TAKING CLOPIDOGREL BISULFATE 75 MG TABLET 1 TABLET ORALLY ONCE A DAY, NOTES: 05/04 TAKING NITROGLYCERIN 0.4 MG TABLET SUBLINGUAL DIRECTED SUBLINGUAL ONE TABLET UNDER THE TONGUE EVERY 5 MIN FOR UP TO 3 DOSES PRN, IF CHEST PAIN STILL PERSISTS CONTACT 911, NOTES: NONE RECENT TAKING ASPIRIN 81 MG TABLET CHEWABLE 1 TABLET ORALLY ONCE A DAY TAKING SPIRONOLACTONE 25 MG TABLET 1 TABLET ORALLY EVERY MORNING TAKING ADVAIR DISKUS 250-50 MCG/DOSE AEROSOL POWDER BREATH ACTIVATED 1 PUFF INHALATION TWICE A DAY TAKING ALBUTEROL SULFATE (2.5 MG/3ML) 0.083% NEBULIZATION SOLUTION 3 ML NEEDED INHALATION THREE TIMES A DAY TAKING MONTELUKAST SODIUM 10 MG TABLET 1 TABLET ORALLY AT BEDTIME TAKING LANSOPRAZOLE 30 MG CAPSULE DELAYED RELEASE 1 CAPSULE ORALLY BID TAKING ROPINIROLE HCL 0.25 MG TABLET 1 TABLET 1 TO 3 HOURS BEFORE BEDTIME ORALLY BEFORE BEDTIME TAKING COMBIVENT RESPIMAT 20-100 MCG/ACT AEROSOL 1 PUFF INHALATION FOUR TIMES DAILY TAKING AMITRIPTYLINE HCL 25 MG TABLET 1 TABLET AT BEDTIME ORALLY BEFORE BEDTIME TAKING BISOPROLOL FUMARATE 5 MG TABLET 1 TABLET ORALLY BID TAKING AMLODIPINE 10 MG TABLET 1/2 TAB ORALLY EVERY MORNING TAKING MAY HAVE - - LEFT COCKUP WRIST SPLINT TOPICALLY BEFORE BEDTIME TAKING COMBIVENT RESPIMAT 20-100 MCG/ACT AEROSOL SOLUTION INHALE ONE PUFF BY MOUTH FOUR TIMES A DAY TAKING ATORVASTATIN CALCIUM 80 MG TABLET 1 TABLET ORALLY ONCE A DAY TAKING EZETIMIBE 10 MG TABLET 1 TABLET ORALLY ONCE A DAY TAKING METFORMIN HCL 1000 MG TABLET 1 TABLET WITH A MEAL ORALLY ONCE A DAY TAKING LIPITOR 40 MG TABLET 1 TABLET ORALLY ONCE A DAY MEDICATION LIST REVIEWED AND RECONCILED WITH THE PATIENT PAST MEDICAL HISTORY CAD SP STEMI 03/10/19 (PEAK T-I 107) SP SCOT CX-SJ-DR. PAULSON HYPERTENSION HYPERLIPIDEMIA 2B ASTHMA, MODERATE PERSISTENT GERD KIN T2DM NID C NEPHROPATHY OBESITY, MORBID CHRONIC MDD/[facility] CERVICAL SPONDYLOSI C5-6 , C6-7 S CORD COMPRESSION MRI 03/2014 @ [facility] LUMBAR SPINE XRAYS 06/16 @ [facility] AFTER FALL C OLD B L5-S1 PONDYLOLYSISL4 ON 5 2MM RETROLISTHESIS MENISCAL TEAR OF R KNEE MRI 02/2015 COMPLEX TEAR LATERAL HORN CHRONIC SUPPARATIVE HIDRADENITIS NOT CONTROLLED LONG C PROPHYLACTIC ANTIBIOTICS; NUMEROUS PROCEDURES NICOTINE USE DISORDER LVEF 55-60%, MILD LAE, PASP 32, MILD MR BY 03/2019 [facility] B NONDIPSLACED NASAL BONE FRACTURES BY 03/2019 CT HEAD PANSINUSITIS BY 03/2019 CT HEAD GALLBLADDER INFLAMMATION AND SLUDGE CARPAL TUNNEL BILATERAL CELLULITIS BILATERAL LEGS ALLERGIES CHANTIX: IRRITABLE - SIDE EFFECTS ADHESIVE TAPE: RASH - ALLERGY EPSOM SALT/PERFEUMED: RASH - ALLERGY CEFTRIAXONE: ANAPHYLAXIS - ALLERGY SOCIAL HISTORY GENERAL: TOBACCO USE ARE YOU A:CURRENT SMOKER ARE YOU INTERESTED IN QUITTING?NOT READY TO QUIT COUNSELED THE PATIENT ON SMOKING EFFECTS, EDUCATION [id number]/02/2021 HOW MANY CIGARETTES A DAY DO YOU SMOKE?6-10 HOW SOON AFTER YOU WAKE UP DO YOU SMOKE YOUR FIRST CIGARETTE?WITHIN 5 MIN HOW OFTEN DO YOU SMOKE CIGARETTES?EVERY DAY PATIENT COUNSELED ON THE DANGERS OF TOBACCO USE AND URGED TO QUIT:05/11/2020 LATEX QUESTIONNAIRE LATEX ALLERGY : HAVE YOU EVER DEVELOPED ANY TYPE OF REACTION AFTER HANDLING LATEX PRODUCTS SUCH RUBBER GLOVES, CONDOMS, DIAPHRAGMS, BALLOONS, SOCKS, OR UNDERWEAR?NO LATEX ALLERGY : HAVE YOU EVER DEVELOPED ANY TYPE OF REACTION DURING OR AFTER DENTAL APPOINTMENT, VAGINAL/RECTAL EXAMINATION, SURGICAL PROCEDURE, OR ANY OTHER EXPOSURE?NO LATEX RISK : HAVE YOU EVER HAD ANY DIFFICULTY BREATHING OR HIVES AFTER EATING OR HANDLING ANY FRUITS, OR VEGETABLES; SUCH KIWI, BANANAS, STONE FRUITS, OR CHESTNUTSNO LATEX RISK : DO YOU HAVE A PREVIOUS PERSONAL HISTORY OF MORE THAN NINE SURGERIES, SPINA BIFIDA, OR REPEATED CATHERIZATIONS? NO LATEX RISK : ARE YOU FREQUENTLY EXPOSED TO LATEX PRODUCTS IN YOUR OCCUPATION?NO DATE ASKED : 07/05/2020 ALCOHOL USE: NO. BMI CARE GOAL FOLLOW-UP ABOVE NORMAL BMI FOLLOW-UPDIETARY MANAGEMENT EDUCATION, GUIDANCE, AND COUNSELING ALCOHOL SCREENING DID YOU HAVE A DRINK CONTAINING ALCOHOL IN THE PAST YEAR?NO POINTS0 INTERPRETATIONNEGATIVE RECREATIONAL DRUG USE DRUG USE?NO CAFFEINE CAFFEINE USE?YES HOW OFTEN AND HOW MUCH? 1-2 SEXUAL HX HAD SEX IN THE LAST 12 MONTHS (VAGINAL, ORAL, OR ANAL)?NO HAVE YOU EVER HAD AN STD?NO HIV / HEP-C SCREENING HIV TEST OFFERED TO PATIENT:YES DATE OFFERED:07/27/2016 TEST ACCEPTED:NO HEP-C TEST OFFERED TO PATIENT:YES DATE OFFERED:09/03/2017 REASON:PATIENT DECLINED TEST ACCEPTED:NO REASON:PATIENT DECLINED BROCHURE PROVIDED TO PATIENTYES ROMAN CATHOLIC [id number] HINDUISM LANGUAGE LANGUAGES SPOKEN:LITHUANIAN EDUCATION LEVEL OF EDUCATION:HIGH SCHOOL LEARNING BARRIERS / SPECIAL NEEDS CHANGE FROM LAST VISIT?NO BARRIERS TO LEARNING?NO HEARING IMPAIRED?NO VISION IMPAIRED?YES READING GLASSES :CORRECTIVE LENSES COGNITIVELY IMPAIRED?NO READINESS TO LEARN?YES LEARNING PREFERENCES?NO LEARNING CAPABILITIES PRESENT?YES EMOTIONAL BARRIERS?NO SPECIAL DEVICES?NO ARCHIVES SPECIALIST NEEDED?NO DOMESTIC VIOLENCE DO YOU FEEL SAFE IN YOUR ENVIRONMENT?YES OCCUPATION: UNEMPLOYED. DIET: NO CONCENTRATED SWEETS.. EXERCISE: WALKS 2 BLOCKS EVERYDAY. MARITAL STATUS: . OTHERS AT HOME: SPOUSE, SON & GIRLFRIEND C PT.; DAUGHTER LIVES IN OWN APT. UPSTAIRS CLOSE TO HELP. - HAS THE PATIENT BEEN EDUCATED REGARDING HIS/HER PLAN OF CARE?YES HAS THE PATIENT BEEN EDUCATED REGARDING PAIN, THE RISK FOR PAIN, THE IMPORTANCE OF EFFECTIVE PAIN MANAGEMENT, AND THE PAIN ASSESSMENT PROCESS?YES ADVANCE DIRECTIVE ADVANCE DIRECTIVE DISCUSSED WITH PATIENT:YES 05/11/2020 PT STATES SHE DOES NOT HAVE ANY ADVANCED DIRECTIVES AND SHE DECLINES INFORMATION ON HCP AT THIS TIME REVIEW OF SYSTEMS CONSTITUTIONAL: ANY RECENT FEVER NO . CHILLS NO . WEIGHT CHANGE OF UNKNOWN REASONS NO . GASTROENTEROLOGY: NEW UNEXPLAINABLE CHANGES IN BOWEL CONTROL NO . CONSTIPATION NO . GENITOURINARY: ANY NEW CHANGE IN BLADDER CONTROL? NO . NEUROLOGY: NEW ONSET DIZZINESS OR NEUROLOGICAL CHANGES NOT MENTIONED NO . NEW NUMBNESS OR PAIN PATTERNS NOT MENTIONED AND PERTINENT TO TODAY'S VISIT NO . CARDIOLOGY: NEW CHEST PRESSURE NO . NEW CHEST PAIN NO . RESPIRATORY: UNEXPLAINABLE COUGH NO . NEW SHORTNESS OF BREATH NO . VITAL SIGNS WT 284 LBS, HT 62 IN, BMI 51.94 INDEX, BP 132/72 MM HG, HR 97 /MIN, RR 18 /MIN, TEMP 95.1 F, OXYGEN SAT % 97, SAFE IN ENV? (Y/N) YEST.ABBY MUÑIZ. EXAMINATION GENERAL EXAMINATION: GENERAL AWAKE,ALERT ,PLEASANT . PSYCH AFFECT NORMAL . LUNGS: LUNG HO[place] ARE CLEAR TO AUSCULTATION BILATERALLY. GOOD MOVEMENT OF AIR . HEART: S1, S2 IN A REGULAR RATE AND RHYTHM. NO SIGNIFICANT MURMURS, RUBS OR GALLOPS NOTED . LUMBAR:TENDERNESS NOTED OVER LS-SPINE . ASSESSMENTS SACROILIITIS - M46.1 (PRIMARY) CHRONIC PRESCRIPTION OPIATE USE - Z79.891 TREATMENT SACROILIITIS START HYDROCODONE-ACETAMINOPHEN TABLET, 5-325 MG, 1 TABLET NEEDED, ORALLY, Q8H PRN FOR SEVERE PAIN #45 TAB SHOULD LAST 30 DAYS, 30 DAYS, 45, REFILLS 0 INCREASE AMITRIPTYLINE HCL TABLET, 25 MG, 2 TAB, ORALLY, BEFORE BEDTIME, 30 DAY(S), 60, REFILLS 2 NOTES: ISTOP REGISTRY REVIEWED AND DEMONSTRATES COMPLLIANCE. , RISKS OF NARCOTIC/OPIOD MEDICATIONS INCLUDES BUT IS NOT LIMITED TO RISK OF DEPENDANCE/DEVELOPMENT OF ADDICTION, MOOD DISTURBANCE AND DEPRESSION, OSTEOPOROSIS, HORMONAL AND LABIDAL CHANGES, RESPIRATORY DEPRESSION AND . PATIENT IS ADVISED NOT TO DRIVE OR DRINK ALCOHOL WHILE ON THESE MEDICATIONS , [facility] NARCOTIC AGREEMENT WAS REVIEWED AND SIGNED TODAY BY THE PATIENT. SEE ATTACHED DOCUMENT FOR FULL DETAILS; SPECIFIC ISSUES WERE REVIEWED: 1) KEEP PAIN MEDS IN THEIR ORIGINAL BOTTLES AND ANY WEEKLY PLANNERS ARE TO BE BROUGHT TO THE PAIN CENTER AT EVERY VISIT. 2) THE PATIENT IS NOT TO INCREASE DOSING OR TIMING OF THEIR PAIN MEDICATION WITHOUT SPECIFIC DIRECTION OF THEIR PAIN CENTERPROVIDER (NOT ER OR OTHER PROVIDERS). 3) ALL PAIN MEDS ARE TO BE KEPT SECURED, IN A LOCKED BOX. 4) NO PAIN MEDS ARE TO BE SHARED WITH ANY OTHER PERSON FOR ANY REASON. 5) NO PAIN MEDS MAY BE TAKEN FROM ANY FRIENDS OR RELATIVES FOR ANY REASON 6) NO MEDS OR SUBSTANCES WHICH ARE NOT LEGAL ARE TO BE USED- NO MARIJUANA, NO COCAINE, AMPHETAMINES, HEROIN, OR OTHERS ARE EVER TO BE USED. 7)URINE TESTING IS DONE TO ACCOUNT FOR MEDS AND SUBSTANCES BEING TAKEN AND WILL BE DONE RANDOMLY. PROCEDURE CODES FA211 ESTABILISHED PATIENT [facility] CHARGE DISPOSITION & COMMUNICATION FOLLOW UP 2 MONTHS (REASON: REVIEW MRI IS ORDERED BY PRIMARY CARE, MEDICATION MANAGEMENT, U TOX) ELECTRONICALLY SIGNED BY KEIKO COLEMAN ON 07/05/2020 AT 12:16 PM EST DISCLAIMER : THIS IS A VISIT SUMMARY EXTRACTED FROM THE [employer] CHART. IT IS NOT A COPY OF THE [employer] PROGRESS NOTE. YASMINE
== END ==
LOC: M PAIN 09:45
PROVIDERS: ATTEND Nurse Practitioner Family
DX: M46.1 Sacroiliitis, not elsewhere classified (principal); G89.29 Other chronic pain; E11.40 Type 2 diabetes mellitus with diabetic neuropathy, unspecified; J45.40 Moderate persistent asthma, uncomplicated; K21.9 Gastro-esophageal reflux disease without esophagitis; G47.33 Obstructive sleep apnea (adult) (pediatric); F17.210 Nicotine dependence, cigarettes, uncomplicated; Z88.8 Allergy status to other drugs, medicaments and biological substances; Z91.09 Other allergy status, other than to drugs and biological substances; E66.01 Morbid (severe) obesity due to excess calories; Z68.43 Body mass index [BMI] 50.0-59.9, adult; Z79.4 Long term (current) use of insulin; Z79.82 Long term (current) use of aspirin; Z79.899 Other long term (current) drug therapy

== ENCOUNTER → 2020-07-07 | Outpatient (CLI) | payer OTHER ==
[~2020-07-07] MED LIST changes: -LISI-542 PO; +LISI-898 PO; +LISI10TA22; +LISI10TA22 PO; -LISI10TA4; -LISI10TA4 PO; +MONT10TA10; +MONT10TA10 PO; -MONT5TAB2; -MONT5TAB2 PO
--- NOTE | 2020-07-07 10:52 | REPVR ---
PROCEDURE INFORMATION: Exam: MR Cervical Spine Without Contrast Exam date and time: 07/07/2020 9:05 AM Age: 49 years old Clinical indication: Patient HX: Neck pain, nki; Additional info: Degenerative disc disease, cervical TECHNIQUE: Imaging protocol: Multiplanar magnetic resonance images of the cervical spine without contrast. COMPARISON: MRI-Spine,Cervical without con 03/11/2014 7:18 AM FINDINGS: Vertebrae: There is reversal of the normal cervical lordosis. There is no fracture. Spinal cord: Normal signal. No cord compression. C2-C3: No significant disc disease. No significant spinal stenosis. C3-C4: No significant disc disease. No significant spinal stenosis. C4-C5: No significant disc disease. No significant spinal stenosis. C5-C6: No significant disc disease. No significant spinal stenosis. C6-C7: There is a diffuse disc osteophyte complex with a left foraminal protrusion. There is mild facet hypertrophy. There is severe left neural foraminal narrowing. C7-T1: No significant disc disease. No significant spinal stenosis. There is a small right perineural cyst. Soft tissues: Unremarkable. Vertebral arteries: Expected flow voids in the vertebral arteries. IMPRESSION: Diffuse disc osteophyte complex with left foraminal protrusion at C6/7 results in potential compromise of the exiting left C7 nerve root. Electronically signed by: Ruma Torres On 07/07/2020 10:52:26 AM
== END ==
LOC: M RAD 08:48
PROVIDERS: ATTEND Physician Assistant Medical
DX: M50.30 Other cervical disc degeneration, unspecified cervical region (principal); M25.78 Osteophyte, vertebrae; M50.223 Other cervical disc displacement at C6-C7 level

== ENCOUNTER → 2020-07-25 | Outpatient (CLI) | payer OTHER ==
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
== END ==
LOC: M PAIN 10:30
PROVIDERS: ATTEND Nurse Practitioner Family
DX: M50.30 Other cervical disc degeneration, unspecified cervical region (principal); G89.29 Other chronic pain; E11.40 Type 2 diabetes mellitus with diabetic neuropathy, unspecified; J45.40 Moderate persistent asthma, uncomplicated; G47.33 Obstructive sleep apnea (adult) (pediatric); F17.210 Nicotine dependence, cigarettes, uncomplicated; Z88.8 Allergy status to other drugs, medicaments and biological substances; Z91.09 Other allergy status, other than to drugs and biological substances; E66.01 Morbid (severe) obesity due to excess calories; Z68.43 Body mass index [BMI] 50.0-59.9, adult; Z79.4 Long term (current) use of insulin; Z79.82 Long term (current) use of aspirin; Z79.899 Other long term (current) drug therapy

== ENCOUNTER → 2020-08-09 | Outpatient (REF) | payer OTHER ==
[2020-08-09 16:07] LABS: BASO # 0.1 10^3/uL (0.0-0.2); BASO % 0.5 % (0.0-1.0); EOS # 0.2 10^3/uL (0.0-0.5); EOS % 2.1 % (0.0-3.0); HEMATOCRIT 43.9 % (36.0-47.0); HEMOGLOBIN 14.8 g/dl (12.0-15.5); LYMPH # 2.7 10^3/uL (1.5-5.0); LYMPH % 27.3 % (24.0-44.0); MEAN CORPUSCULAR HEMOGLOBIN 31.4 pg (27.0-33.0); MEAN CORPUSCULAR HGB CONC 33.7 g/dl (32.0-36.5); MEAN CORPUSCULAR VOLUME 93.2 fl (80.0-96.0); MONO # 0.8 10^3/uL (0.0-0.8); MONO % 7.7 % (2.0-8.0); NEUTROPHILS # 6.1 10^3/uL (1.5-8.5); NEUTROPHILS % 61.9 % (36.0-66.0); PLATELET COUNT, AUTOMATED 242 10^3/uL (150-450); RED BLOOD COUNT 4.71 10^6/uL (4.00-5.40); WHITE BLOOD COUNT 9.8 10^3/uL (4.0-10.0)
[2020-08-09 16:22] LABS: HEMOGLOBIN A1c 7.7 %
[2020-08-09 16:34] LABS: C REACTIVE PROTEIN QUANTITATIV 0.93 MG/DL (0.00-0.30); CHOLESTEROL RISK RATIO 3.064 (<5)
[2020-08-09 17:49] LABS: ERYTHROCYTE SEDIMENTATION RATE 19 mm/hr (0-20)
== END ==
LOC: M SFHCPLAZ 13:38
PROVIDERS: ATTEND Physician Assistant Medical
DX: L73.2 Hidradenitis suppurativa (principal); E78.2 Mixed hyperlipidemia

== ENCOUNTER → 2020-09-16 | Outpatient (CLI) | payer OTHER ==
--- NOTE | 2020-09-19 00:21 | ECWPNPC ---
PATIENT NAME: CHERYL SYED : 1970 GENDER: FEMALE VISIT DATE: 09/16/2020 DISCHARGE DATE: 09/16/20 1010 VISIT LOCKED DATE TIME: PHYSICIAN: SANDER MCNEAL PHYSICIAN PAGER NO: ACTIVE RESOURCE: SANDER MCNEAL REASON FOR APPOINTMENT 1. NECK/LOW BACK PAIN/MEDICATION MANAGEMENT/U TOX HISTORY OF PRESENT ILLNESS GENERAL: HERE FOR FOLLOW-UP OF CHRONIC NECK AND LOW BACK PAIN. STATES THAT SHE DOESN'T WANT TO BE ON HYDROCODONE ANYMORE. WE GAVE HER A SMALL AMOUNT OF HYDROCODONE AT HER LAST VISIT TO SEE IF THIS WOULD BE HELPFUL. STATES SHE IS AFRAID TO TAKE IT DUE TO HER FAMILY HISTORY OF ADDICTION PROBLEMS. USES GABAPENTIN 300 MG TWICE A DAY AND BACLOFEN PERIODICALLY FOR MUSCLE SPASM PAIN.THIS IS PRESCRIBED BY NEUROLOGY.TAKING AMITRIPTYLINE 25MG 2 TAB AT HS THAT WE PRESCRIBE. HAS INCREASED PAIN WITH INCREASED ACTIVITY. WE ARE UNABLE TO DO INJECTION THERAPY DUE TO ANTICOAGULANT THERAPY FOR RECENT CARDIAC EVENT. DISCUSSED MEDICATION AND TREATMENT PLAN. -. FALL RISK SCREENING: SCREENING : NO FALLS REPORTED IN THE LAST YEAR. PAIN SCREENING: PATIENT HAS A COMPLAINT OF ACUTE OR CHRONIC PAIN :YES LOCATION OF PAIN:NECK, LOW BACK INTENSITY OF PAIN (SCALE OF 1 TO 10):6 WHAT DOES YOUR PAIN FEEL LIKE:ACHING, BURNING, CONTINOUS, SHARP DURATION:CONTINOUS, CONSTANT, ALL DAY PAIN IS INCREASED BY:ACTIVITIES PAIN IS DECREASED BY:USE OF PAIN MEDICATIONS NURSING NOTE: -. PAIN CENTER INTAKE QUESTIONS: DO YOU HAVE A HISTORY OF MRSA? :NO DO YOU TAKE A BLOOD THINNERS? :YES DO YOU HAVE ANY BLEEDING DISORDERS? :NO ANY NEW NUMBNESS OR WEAKNESS IN YOUR LEGS OR ARMS? :NO ANY PACEMAKER,DEFIBRILLATOR, OR DORSAL COLUMN STIMULATOR? :NO DO YOU HAVE ANY RASHES OR OPEN SORES? :NO ARE YOU ALLERGIC TO IV DYE? :NO ARE YOU DIABETIC? :YES ANY NEW PROBLEMS WITH YOUR MEDICATIONS? :NO HAVE YOU RECEIVED A VACCINE IN THE PAST 30 DAYS? :NO DO YOU PLAN TO RECEIVE A VACCINE IN THE NEXT 21 DAYS? :NO DO YOU NEED ANY PRESCRIPTION? :NO DO YOU TAKE ANY IMMUNOSUPPRESSIVE MEDICATIONS? :YES METHYLPREDNISOLONE IS THERE A CHANCE YOU COULD BE ? :NO ARE YOU BREAST FEEDING? :NO CURRENT MEDICATIONS TAKING BISOPROLOL FUMARATE 5 MG TABLET 1 TABLET ORALLY BID TAKING AMLODIPINE 10 MG TABLET 1/2 TAB ORALLY EVERY MORNING TAKING LISINOPRIL 10 MG TABLET 1 TABLET ORALLY ONCE A DAY TAKING BASAGLAR KWIKPEN 100 UNIT/ML SOLUTION PEN-INJECTOR 55 UNITS SUBCUTANEOUS BEFORE BEDTIME TAKING ALOGLIPTIN BENZOATE 6.25 MG TABLET DIRECTED ORALLY DAILY TAKING ADMELOG SOLOSTAR 100 UNIT/ML SOLUTION PEN-INJECTOR DIRECTED IN SSI SUBCUTANEOUS 10 UNITS C EACH MEAL TAKING BD PEN NEEDLE MINI U/F 31G X 5 MM MISCELLANEOUS 1 NEEDLE SUBCUTANEOUSLY THREE TIMES DAILY NEEDED TAKING NITROGLYCERIN 0.4 MG TABLET SUBLINGUAL DIRECTED SUBLINGUAL ONE TABLET UNDER THE TONGUE EVERY 5 MIN FOR UP TO 3 DOSES PRN, IF CHEST PAIN STILL PERSISTS CONTACT 911, NOTES: NONE RECENT TAKING ASPIRIN 81 MG TABLET CHEWABLE 1 TABLET ORALLY ONCE A DAY TAKING ADVAIR DISKUS 250-50 MCG/DOSE AEROSOL POWDER BREATH ACTIVATED 1 PUFF INHALATION TWICE A DAY TAKING ALBUTEROL SULFATE (2.5 MG/3ML) 0.083% NEBULIZATION SOLUTION 3 ML NEEDED INHALATION THREE TIMES A DAY TAKING LANSOPRAZOLE 30 MG CAPSULE DELAYED RELEASE 1 CAPSULE ORALLY BID TAKING ROPINIROLE HCL 0.25 MG TABLET 1 TABLET 1 TO 3 HOURS BEFORE BEDTIME ORALLY BEFORE BEDTIME TAKING COMBIVENT RESPIMAT 20-100 MCG/ACT AEROSOL 1 PUFF INHALATION FOUR TIMES DAILY TAKING MAY HAVE - - LEFT COCKUP WRIST SPLINT TOPICALLY BEFORE BEDTIME TAKING AMITRIPTYLINE HCL 25 MG TABLET 2 TAB ORALLY BEFORE BEDTIME TAKING METFORMIN HCL 500MG TABLET TAKE 2 TABLETS BY MOUTH IN THE MORNING AND 1 TABS WITH DINNER DAILY ORALLY BID TAKING CLOPIDOGREL BISULFATE 75 MG TABLET 1 TABLET ORALLY ONCE A DAY TAKING ONE TOUCH ULTRA BLUE STRIPS 1 STRIP DX E11.69 SUBCUTANEOUSLY QID TAKING MONTELUKAST SODIUM 10 MG TABLET 1 TABLET ORALLY AT BEDTIME TAKING ATORVASTATIN CALCIUM 80 MG TABLET 1 TABLET ORALLY ONCE A DAY TAKING EZETIMIBE 10 MG TABLET 1 TABLET ORALLY ONCE A DAY TAKING GABAPENTIN 300 MG CAPSULE 1 CAPSULE ORALLY TID TAKING BACLOFEN 10 MG TABLET 1 TABLET WITH FOOD OR MILK ORALLY THREE TIMES A DAY TAKING METHYLPREDNISOLONE 4 MG TABLET THERAPY PACK DIRECTED ORALLY DIRECTED TAKING CLINDAMYCIN PHOSPHATE 1 % GEL 1 APPLICATION EXTERNALLY ONCE A DAY TO AREAS WITH HS AFTER WASHING WITH BENZOYL PEROXIDE TAKING DOXYCYCLINE MONOHYDRATE 100 MG CAPSULE 1 CAPSULE ORALLY BID WITH FOOD AND WATER TAKING SPIRONOLACTONE 25 MG TABLET 1 TABLET ORALLY Q12 HOURS (BUT PATIENT TO CHECK WITH CHIQUIS KABA HER PRIMARY FIRST) TAKING HYDROCODONE-ACETAMINOPHEN 325-5 MG TABLET DIRECTED ORALLY MEDICATION LIST REVIEWED AND RECONCILED WITH THE PATIENT PAST MEDICAL HISTORY CAD SP STEMI 03/10/19 (PEAK T-I 107) SP SCOT CX-SJ-DR. PAULSON HYPERTENSION HYPERLIPIDEMIA 2B ASTHMA, MODERATE PERSISTENT GERD KIN T2DM NID C NEPHROPATHY OBESITY, MORBID CHRONIC MDD/[place] CERVICAL SPONDYLOSI C5-6 , C6-7 S CORD COMPRESSION MRI 03/2014 @ [facility] LUMBAR SPINE XRAYS 06/16 @ [facility] AFTER FALL C OLD B L5-S1 PONDYLOLYSISL4 ON 5 2MM RETROLISTHESIS MENISCAL TEAR OF R KNEE MRI 02/2015 COMPLEX TEAR LATERAL HORN CHRONIC SUPPARATIVE HIDRADENITIS NOT CONTROLLED LONG C PROPHYLACTIC ANTIBIOTICS; NUMEROUS PROCEDURES NICOTINE USE DISORDER LVEF 55-60%, MILD LAE, PASP 32, MILD MR BY 03/2019 [facility] B NONDIPSLACED NASAL BONE FRACTURES BY 03/2019 CT HEAD PANSINUSITIS BY 03/2019 CT HEAD GALLBLADDER INFLAMMATION AND SLUDGE CARPAL TUNNEL BILATERAL CELLULITIS BILATERAL LEGS ALLERGIES CHANTIX: IRRITABLE - SIDE EFFECTS ADHESIVE TAPE: RASH - ALLERGY EPSOM SALT/PERFEUMED: RASH - ALLERGY CEFTRIAXONE: ANAPHYLAXIS - ALLERGY SOCIAL HISTORY GENERAL: TOBACCO USE ARE YOU A:CURRENT SMOKER ARE YOU INTERESTED IN QUITTING?NOT READY TO QUIT COUNSELED THE PATIENT ON SMOKING EFFECTS, EDUCATION [id number]/2021 HOW MANY CIGARETTES A DAY DO YOU SMOKE?6-10 HOW SOON AFTER YOU WAKE UP DO YOU SMOKE YOUR FIRST CIGARETTE?WITHIN 5 MIN HOW OFTEN DO YOU SMOKE CIGARETTES?EVERY DAY PATIENT COUNSELED ON THE DANGERS OF TOBACCO USE AND URGED TO QUIT:05/11/2020 LATEX QUESTIONNAIRE LATEX ALLERGY : HAVE YOU EVER DEVELOPED ANY TYPE OF REACTION AFTER HANDLING LATEX PRODUCTS SUCH RUBBER GLOVES, CONDOMS, DIAPHRAGMS, BALLOONS, SOCKS, OR UNDERWEAR?NO LATEX ALLERGY : HAVE YOU EVER DEVELOPED ANY TYPE OF REACTION DURING OR AFTER DENTAL APPOINTMENT, VAGINAL/RECTAL EXAMINATION, SURGICAL PROCEDURE, OR ANY OTHER EXPOSURE?NO LATEX RISK : HAVE YOU EVER HAD ANY DIFFICULTY BREATHING OR HIVES AFTER EATING OR HANDLING ANY FRUITS, OR VEGETABLES; SUCH KIWI, BANANAS, STONE FRUITS, OR CHESTNUTSNO LATEX RISK : DO YOU HAVE A PREVIOUS PERSONAL HISTORY OF MORE THAN NINE SURGERIES, SPINA BIFIDA, OR REPEATED CATHERIZATIONS? NO LATEX RISK : ARE YOU FREQUENTLY EXPOSED TO LATEX PRODUCTS IN YOUR OCCUPATION?NO DATE ASKED : 09/16/2020 ALCOHOL USE: NO. BMI CARE GOAL FOLLOW-UP ABOVE NORMAL BMI FOLLOW-UPDIETARY MANAGEMENT EDUCATION, GUIDANCE, AND COUNSELING ALCOHOL SCREENING DID YOU HAVE A DRINK CONTAINING ALCOHOL IN THE PAST YEAR?NO POINTS0 INTERPRETATIONNEGATIVE RECREATIONAL DRUG USE DRUG USE?NO CAFFEINE CAFFEINE USE?YES HOW OFTEN AND HOW MUCH? 1-2 SEXUAL HX HAD SEX IN THE LAST 12 MONTHS (VAGINAL, ORAL, OR ANAL)?NO HAVE YOU EVER HAD AN STD?NO HIV / HEP-C SCREENING HIV TEST OFFERED TO PATIENT:YES DATE OFFERED:07/27/2016 TEST ACCEPTED:NO HEP-C TEST OFFERED TO PATIENT:YES DATE OFFERED:09/03/2017 REASON:PATIENT DECLINED TEST ACCEPTED:NO REASON:PATIENT DECLINED BROCHURE PROVIDED TO PATIENTYES ZOROASTRIAN [id number] [employer] LANGUAGE LANGUAGES SPOKEN:SLOVENIAN EDUCATION LEVEL OF EDUCATION:HIGH SCHOOL LEARNING BARRIERS / SPECIAL NEEDS CHANGE FROM LAST VISIT?NO BARRIERS TO LEARNING?NO HEARING IMPAIRED?NO VISION IMPAIRED?YES READING GLASSES :CORRECTIVE LENSES COGNITIVELY IMPAIRED?NO READINESS TO LEARN?YES LEARNING PREFERENCES?NO LEARNING CAPABILITIES PRESENT?YES EMOTIONAL BARRIERS?NO SPECIAL DEVICES?NO EDI SPECIALIST NEEDED?NO DOMESTIC VIOLENCE DO YOU FEEL SAFE IN YOUR ENVIRONMENT?YES OCCUPATION: UNEMPLOYED. DIET: NO CONCENTRATED SWEETS.. EXERCISE: WALKS 2 BLOCKS EVERYDAY. MARITAL STATUS: . OTHERS AT HOME: SPOUSE. - HAS THE PATIENT BEEN EDUCATED REGARDING HIS/HER PLAN OF CARE?YES HAS THE PATIENT BEEN EDUCATED REGARDING PAIN, THE RISK FOR PAIN, THE IMPORTANCE OF EFFECTIVE PAIN MANAGEMENT, AND THE PAIN ASSESSMENT PROCESS?YES ADVANCE DIRECTIVE ADVANCE DIRECTIVE DISCUSSED WITH PATIENT:YES 05/11/2020 PT STATES SHE DOES NOT HAVE ANY ADVANCED DIRECTIVES AND SHE DECLINES INFORMATION ON HCP AT THIS TIME REVIEW OF SYSTEMS CONSTITUTIONAL: ANY RECENT FEVER NO . CHILLS NO . WEIGHT CHANGE OF UNKNOWN REASONS NO . GASTROENTEROLOGY: NEW UNEXPLAINABLE CHANGES IN BOWEL CONTROL NO . CONSTIPATION NO . GENITOURINARY: ANY NEW CHANGE IN BLADDER CONTROL? NO . NEUROLOGY: NEW ONSET DIZZINESS OR NEUROLOGICAL CHANGES NOT MENTIONED NO . NEW NUMBNESS OR PAIN PATTERNS NOT MENTIONED AND PERTINENT TO TODAY'S VISIT NO . CARDIOLOGY: NEW CHEST PRESSURE NO . PATIENT DENIES NO . RESPIRATORY: UNEXPLAINABLE COUGH NO . NEW SHORTNESS OF BREATH NO . VITAL SIGNS WT 286.2 LBS, HT 62 IN, BMI 52.34 INDEX, BP 150/74 MM HG, REPEAT BP 128/77 MM HG, HR 115 /MIN, RR 18 /MIN, TEMP 97.0 F, OXYGEN SAT % 97%, SAFE IN ENV? (Y/N) YES, NA INITIALS AW [id number] [id number]. EXAMINATION GENERAL EXAMINATION: GENERALAWAKE,ALERT ,PLEASANT . PSYCHAFFECT NORMAL . LUNGS:LUNG HO[place] ARE CLEAR TO AUSCULTATION BILATERALLY. GOOD MOVEMENT OF AIR . HEART:S1, S2 IN A REGULAR RATE AND RHYTHM. NO SIGNIFICANT MURMURS, RUBS OR GALLOPS NOTED . ASSESSMENTS DEGENERATIVE DISC DISEASE, CERVICAL - M50.30 (PRIMARY) SACROILIITIS - M46.1 TREATMENT DEGENERATIVE DISC DISEASE, CERVICAL CONTINUE AMITRIPTYLINE HCL TABLET, 25 MG, 2 TAB, ORALLY, BEFORE BEDTIME, 30 DAYS, 60, REFILLS 5 STOP HYDROCODONE-ACETAMINOPHEN TABLET, 325-5 MG, DIRECTED, ORALLY PROCEDURE CODES FA211 ESTABILISHED PATIENT [facility] CHARGE DISPOSITION & COMMUNICATION FOLLOW UP 6 MONTHS (REASON: MED MGMNT/AMITRIPTYLINE) ELECTRONICALLY SIGNED BY KEIKO COLEMAN ON 09/18/2020 AT 08:12 PM EDT DISCLAIMER : THIS IS A VISIT SUMMARY EXTRACTED FROM THE [employer] CHART. IT IS NOT A COPY OF THE [employer] PROGRESS NOTE. YASMINE
== END ==
LOC: M PAIN 09:30
PROVIDERS: ATTEND Nurse Practitioner Family
DX: M50.30 Other cervical disc degeneration, unspecified cervical region (principal); M46.1 Sacroiliitis, not elsewhere classified; G89.29 Other chronic pain; E11.40 Type 2 diabetes mellitus with diabetic neuropathy, unspecified; J45.40 Moderate persistent asthma, uncomplicated; K21.9 Gastro-esophageal reflux disease without esophagitis; G47.33 Obstructive sleep apnea (adult) (pediatric); F17.210 Nicotine dependence, cigarettes, uncomplicated; Z86.59 Personal history of other mental and behavioral disorders; Z88.8 Allergy status to other drugs, medicaments and biological substances; Z91.09 Other allergy status, other than to drugs and biological substances; E66.01 Morbid (severe) obesity due to excess calories; Z68.43 Body mass index [BMI] 50.0-59.9, adult; Z79.4 Long term (current) use of insulin; Z79.82 Long term (current) use of aspirin; Z79.891 Long term (current) use of opiate analgesic; Z79.899 Other long term (current) drug therapy

== ENCOUNTER → 2020-10-03 | Outpatient (REF) | payer OTHER ==
[2020-10-03 12:21] LABS: ALBUMIN 3.6 GM/DL (3.2-5.2); ALT/SGPT 66 U/L (12-78); BILIRUBIN,TOTAL 0.3 MG/DL (0.2-1.0); BLOOD UREA NITROGEN 16 MG/DL (7-18); CALCIUM LEVEL 9.9 MG/DL (8.5-10.1); CARBON DIOXIDE LEVEL 27 MEQ/L (21-32); CHLORIDE LEVEL 99 MEQ/L (98-107); CREATININE FOR GFR 0.71 MG/DL (0.55-1.30); FERRITIN 271 NG/ML (8-252); GLOMERULAR FILTRATION RATE > 60.0 (>58); GLUCOSE, FASTING 333 MG/DL (70-100); IRON (FE) 75 UG/DL (50-170); MAGNESIUM LEVEL 1.6 MG/DL (1.8-2.4); POTASSIUM SERUM 4.8 MEQ/L (3.5-5.1); SODIUM LEVEL 136 MEQ/L (136-145); TOTAL PROTEIN 6.9 GM/DL (6.4-8.2)
== END ==
LOC: M SFHCPLAZ 09:02
PROVIDERS: ATTEND Physician Assistant Medical
DX: G47.62 Sleep related leg cramps (principal); E11.69 Type 2 diabetes mellitus with other specified complication; G25.81 Restless legs syndrome

== ENCOUNTER → 2021-01-12 | Outpatient (CLI) | payer OTHER ==
[~2021-01-12] MED LIST changes: +GABA-283 PO; -GABA-845 PO
--- NOTE | 2021-01-12 10:24 | REPMRS ---
Patient History The patient states she had a clinical breast exam in June 2020. Family history of ovarian cancer in mother, breast cancer at age 50 in maternal aunt. Patient states no breast complaints today. Patient has signed MRS History Sheet. Digital Woman Screen Mammo: January 12, 2021 - Exam #: [id number] Bilateral CC and MLO view(s) were taken. Technologist: Radha Granda, Technologist Prior study comparison: August 11, 2019, bilateral digital woman screen mammo performed at [facility]. August 14, 2018, bilateral digital woman screen mammo performed at [facility]. May 18, 2014, bilateral digital mammo screening bilat, performed at [facility]. FINDINGS: The breast tissue is almost entirely fat. The Volpara volumetric breast density category is: A. There are 2 stable nodular opacities in the upper outer quadrant of the right breast. However, today's study also demonstrates a new area of microcalcification in the upper-outer quadrant of the right breast. This merits further evaluation. There has been no other change in the appearance of the mammogram from the prior studies. There is no other interval development of dominant mass, architectural distortion, or grouped microcalcification typical of malignancy. 3-D tomosynthesis shows no additional findings. Assessment: BI-RADS/ACR category 0 mammogram, Incomplete: Need additional imaging evaluation and/or prior mammograms for comparison. Recommendation Special view mammogram of the right breast in 1 year. This patient's [facility] Lifetime Breast Cancer RIsk is estimated at 14.7 %. This mammogram was interpreted with the aid of an FDA-approved computer-aided dectection system. Electronically Signed By: Dayne Peñaloza MD 01/12/21 [id number]
== END ==
LOC: M WHC 09:32
PROVIDERS: ATTEND Physician Assistant Medical
DX: Z12.31 Encounter for screening mammogram for malignant neoplasm of breast (principal); Z80.3 Family history of malignant neoplasm of breast; Z80.41 Family history of malignant neoplasm of ovary; R92.0 Mammographic microcalcification found on diagnostic imaging of breast

== ENCOUNTER → 2021-01-24 | Outpatient (CLI) | payer OTHER ==
--- NOTE | 2021-01-24 10:45 | REP ---
INDICATION: ADDITIONAL VIEWS RT BREAST. COMPARISON: Comparison mammography January 12, 2021, August 11, 2019, and August 14, 2018. TECHNIQUE: Magnified focal spot-compression CC and MLO views of the right breast are obtained. This mammogram was interpreted with the aid of an FDA-approved computer-aided detection system. FINDINGS: Magnified focal spot-compression CC and MLO views of the right breast confirm the presence of a somewhat linearly aligned group of amorphous polymorphic microcalcifications in the upper-outer quadrant of the right breast which is considered breast parenchyma is otherwise predominantly fat replaced. The grouping is new. Suspicious. The Volpara volumetric breast density pattern is a. IMPRESSION: BIRADS/ACR category 4 suspicious right breast mammographic findings. 14.7 This patient's [facility] lifetime breast cancer risk assessment score is %. RECOMMENDATION: Stereotactic needle biopsy right breast for micro calcific grouping with marker clip placement and post clip placement mammography recommended. The patient letter being requested is M4. <Electronically signed by Dayne Peñaloza > 01/24/21 7043
== END ==
LOC: M WHC 09:51
PROVIDERS: ATTEND Physician Assistant Medical
DX: R92.8 Other abnormal and inconclusive findings on diagnostic imaging of breast (principal)

== ENCOUNTER → 2021-02-14 | Outpatient (CLI) | payer OTHER ==
[~2021-02-14] MED LIST changes: +ECOT81TA5 PO; -KLOR20TA42 FT; +POTA-141 FT
[2021-02-14 10:08] VITALS: BP 116/80
--- NOTE | 2021-02-14 10:22 | REP ---
INDICATION: R92.1 CALC R BREAST/STEREO BX/CK CLIP PLACEMENT. COMPARISON: 01/12/2021, 01/24/2021. TECHNIQUE: MLO, mL and CC views right breast performed following stereotactic biopsy of clustered microcalcifications in the upper-outer quadrant of the right breast. FINDINGS: Residual calcifications are seen in the upper outer quadrant the right breast. The biopsy clip has deployed approximately 6 cm inferior to the clustered microcalcifications. IMPRESSION: The biopsy clip has deployed approximately 6 cm inferior to the clustered microcalcifications. Calcifications were sampled as they are present in the specimen radiograph. RECOMMENDATION: Clinical follow-up. <Electronically signed by Juan Madden > 02/14/21 1018
--- NOTE | 2021-02-14 10:23 | REP ---
INDICATION: R92.1 CALC R BREAST/STEREO BX/CK CLIP PLACEMENT. COMPARISON: 01/12/2021, 01/24/2021. TECHNIQUE: Specimen radiograph performed. FINDINGS: Multiple calcifications are seen in the obtained specimens. IMPRESSION: Successful stereotactic biopsy of clustered microcalcifications upper-outer quadrant right breast. RECOMMENDATION: Clinical follow-up. <Electronically signed by Juan Madden > 02/14/21 1019
--- NOTE | 2021-02-14 16:45 | REP ---
INDICATION: R92.1 CALC R BREAST/STEREO BX/CK CLIP PLACEMENT. COMPARISON: None. TECHNIQUE: This procedure is performed by Leti Bernstein [facility], under the direct supervision of Dr. Madden. The risks and benefits of the procedure were explained to the patient and informed consent was obtained both verbally and written. Directly prior to the start of the procedure, a formal timeout was done in the procedure room. The cranial caudal approach was utilized on the prone table. The right breast microcalcifications were localized using mammographic guidance. The skin was prepped and draped in a sterile fashion. 2.5 ml of buffered lidocaine was used as a local anesthetic. FINDINGS: A 10 gauge vacuum assisted mammotome biopsy device was inserted and advanced into the right breast microcalcifications and 6 core biopsy samples were obtained. A shaped 3 marker clip was placed at the biopsy site. The patient tolerated the procedure well and there were no immediate complications. After the appropriate amount of monitored convalescence the patient was discharged from the department. IMPRESSION: Stereotactic guided right breast biopsy with a shape 3 micro clip placement. <Electronically signed by Leti Bernstein > 02/14/21 1104 <Electronically signed by Juan Madden > 02/14/21 [id number]
== END ==
LOC: M WHCPRO 06:50
PROVIDERS: ATTEND Physician Assistant Medical
DX: R92.1 Mammographic calcification found on diagnostic imaging of breast (principal)

== ENCOUNTER → 2021-02-23 | Outpatient (CLI) | payer OTHER ==
[2021-02-23 15:21] LABS: HEMOGLOBIN A1c 10.8 %
[2021-02-23 15:36] LABS: ALBUMIN 3.6 GM/DL (3.2-5.2); ALT/SGPT 45 U/L (12-78); BILIRUBIN,TOTAL 0.5 MG/DL (0.2-1.0); BLOOD UREA NITROGEN 20 MG/DL (7-18); CALCIUM LEVEL 9.3 MG/DL (8.5-10.1); CARBON DIOXIDE LEVEL 29 MEQ/L (21-32); CHLORIDE LEVEL 95 MEQ/L (98-107); CREATININE FOR GFR 0.78 MG/DL (0.55-1.30); GLOMERULAR FILTRATION RATE > 60.0 (>58); GLUCOSE, FASTING 338 MG/DL (70-100); MAGNESIUM LEVEL 1.8 MG/DL (1.8-2.4); POTASSIUM SERUM 3.9 MEQ/L (3.5-5.1); SODIUM LEVEL 133 MEQ/L (136-145); TOTAL PROTEIN 7.1 GM/DL (6.4-8.2)
== END ==
LOC: M PLALAB 12:02
PROVIDERS: ATTEND Physician Assistant Medical
DX: E11.69 Type 2 diabetes mellitus with other specified complication (principal)

== ENCOUNTER → 2021-07-11 | Outpatient (REF) | payer OTHER ==
[~2021-07-11] MED LIST changes: -FLUC150T PO; +FLUC150T9 PO; -LISI-898 PO; +LISI5TAB11 PO; -MONT10TA10; -MONT10TA10 PO; +MONT10TA97; +MONT10TA97 PO; -TOPI25CA3 PO; +TOPI25CA5 PO
== END ==
LOC: M SFHCPLAZ 09:48
PROVIDERS: ATTEND Physician Assistant Medical
DX: L91.8 Other hypertrophic disorders of the skin (principal)

== ENCOUNTER → 2021-11-29 | Outpatient (CLI) | payer OTHER ==
[~2021-11-29] MED LIST changes: +ALBU2.5V10 INH; -ALBU83IN INH; -RIFA300C3 PO; +RIFA300C8 PO
[2021-11-29 13:53] LABS: BASO # 0.1 10^3/uL (0.0-0.2); BASO % 0.7 % (0.0-1.0); EOS # 0.1 10^3/uL (0.0-0.5); EOS % 1.4 % (0.0-3.0); HEMATOCRIT 50.5 % (36.0-47.0); HEMOGLOBIN 17.4 g/dl (12.0-15.5); LYMPH # 3.1 10^3/uL (1.5-5.0); LYMPH % 35.5 % (24.0-44.0); MEAN CORPUSCULAR HEMOGLOBIN 31.5 pg (27.0-33.0); MEAN CORPUSCULAR HGB CONC 34.5 g/dl (32.0-36.5); MEAN CORPUSCULAR VOLUME 91.5 fl (80.0-96.0); MONO # 0.7 10^3/uL (0.0-0.8); MONO % 7.6 % (2.0-8.0); NEUTROPHILS # 4.7 10^3/uL (1.5-8.5); NEUTROPHILS % 54.5 % (36.0-66.0); PLATELET COUNT, AUTOMATED 232 10^3/uL (150-450); RED BLOOD COUNT 5.52 10^6/uL (4.00-5.40); WHITE BLOOD COUNT 8.6 10^3/uL (4.0-10.0)
[2021-11-29 14:07] LABS: HEMOGLOBIN A1c 10.6 %
[2021-11-29 14:17] LABS: ALBUMIN 3.4 GM/DL (3.2-5.2); ALT/SGPT 33 U/L (12-78); BILIRUBIN,TOTAL 0.4 MG/DL (0.2-1.0); BLOOD UREA NITROGEN 14 MG/DL (7-18); C REACTIVE PROTEIN QUANTITATIV 2.25 MG/DL (0.00-0.30); CALCIUM LEVEL 8.9 MG/DL (8.5-10.1); CARBON DIOXIDE LEVEL 26 MEQ/L (21-32); CHLORIDE LEVEL 105 MEQ/L (98-107); CHOLESTEROL LEVEL 180 MG/DL (<200); CHOLESTEROL RISK RATIO 6.206 (<5); CREATININE FOR GFR 0.53 MG/DL (0.55-1.30); GLOMERULAR FILTRATION RATE > 60.0 (>58); GLUCOSE, FASTING 261 MG/DL (70-100); HDL CHOLESTEROL 29 MG/DL (>40); LDL CHOLESTEROL 97 MG/DL (<100); NON-HDL-C 151 MG/DL; POTASSIUM SERUM 4.3 MEQ/L (3.5-5.1); SODIUM LEVEL 137 MEQ/L (136-145); TOTAL PROTEIN 6.7 GM/DL (6.4-8.2); TRIGLYCERIDES LEVEL 269 MG/DL (<150)
[2021-11-29 14:26] LABS: CREATININE, URINE 90.7 MG/DL; ERYTHROCYTE SEDIMENTATION RATE 10 mm/hr (0-20); MAU/CREAT RATIO 313.1 MCG/MG (0.0-30.0)
== END ==
LOC: M PLALAB 11:25
PROVIDERS: ATTEND Physician Assistant Medical
DX: E11.69 Type 2 diabetes mellitus with other specified complication (principal); L02.412 Cutaneous abscess of left axilla; L02.411 Cutaneous abscess of right axilla; L73.2 Hidradenitis suppurativa; E78.2 Mixed hyperlipidemia

== ENCOUNTER → 2021-12-26 | Outpatient (CLI) | payer OTHER | LOC: M WHC 10:32 | PROVIDERS: ATTEND Physician Assistant Medical | DX: N60.01 Solitary cyst of right breast (principal) ==

== ENCOUNTER → 2022-01-17 | Outpatient (REF) ==
[~2022-01-17] MED LIST changes: +LEVO1TAB40 PO; -LEVO750T13 PO
== END ==
LOC: M PLAIMG 15:41
PROVIDERS: ATTEND Internal Medicine
DX: M43.07 Spondylolysis, lumbosacral region (principal); M51.36 Other intervertebral disc degeneration, lumbar region; M51.37 Other intervertebral disc degeneration, lumbosacral region

== ENCOUNTER → 2022-06-25 | Outpatient (CLI) | payer OTHER ==
[2022-06-25 15:56] LABS: BASO % 0.5 % (0.0-1.0); EOS # 0.1 10^3/uL (0.0-0.5); EOS % 1.8 % (0.0-3.0); HEMOGLOBIN 16.4 g/dl (12.0-15.5); LYMPH # 2.3 10^3/uL (1.5-5.0); LYMPH % 31.2 % (24.0-44.0); MEAN CORPUSCULAR HEMOGLOBIN 30.7 pg (27.0-33.0); MEAN CORPUSCULAR HGB CONC 33.5 g/dl (32.0-36.5); MEAN CORPUSCULAR VOLUME 91.8 fl (80.0-96.0); MONO # 0.6 10^3/uL (0.0-0.8); MONO % 7.7 % (2.0-8.0); NEUTROPHILS # 4.3 10^3/uL (1.5-8.5); NEUTROPHILS % 58.1 % (36.0-66.0); PLATELET COUNT, AUTOMATED 275 10^3/uL (150-450); RED BLOOD COUNT 5.34 10^6/uL (4.00-5.40); WHITE BLOOD COUNT 7.4 10^3/uL (4.0-10.0)
[2022-06-25 16:01] LABS: HEMOGLOBIN A1c 10.6 % (4.0-6.0)
[2022-06-25 16:21] LABS: MAGNESIUM LEVEL 1.6 MG/DL (1.8-2.4)
[2022-06-25 16:22] LABS: TOTAL 25(OH) VITAMIN D 11.4 NG/ML (20.0-100.0)
[2022-06-25 17:22] LABS: ALKALINE PHOSPHATASE 110 U/L (46-116); ALT/SGPT 27 U/L (7.0-40); AST/SGOT 16 U/L (<34); BILIRUBIN,TOTAL 0.3 MG/DL (0.3-1.2); BLOOD UREA NITROGEN 15 MG/DL (9-23); CALCIUM LEVEL 8.6 MG/DL (8.5-10.1); CARBON DIOXIDE LEVEL 26 MMOL/L (20-31); CHLORIDE LEVEL 96 MMOL/L (98-107); CHOLESTEROL LEVEL 220 MG/DL (<200); CHOLESTEROL RISK RATIO 6.25 (<5); CPK CREATINE PHOSPHOKINASE 56 U/L (34-145); CREATININE FOR GFR 0.44 MG/DL (0.55-1.30); GLOMERULAR FILTRATION RATE > 60.0 (>58); GLUCOSE, FASTING 444 MG/DL (60-100); HDL CHOLESTEROL 35.2 MG/DL (>40); NON-HDL-C 185 MG/DL; POTASSIUM SERUM 4.4 MMOL/L (3.5-5.1); SODIUM LEVEL 133 MMOL/L (136-145); TOTAL PROTEIN 6.2 G/DL (5.7-8.2); TRIGLYCERIDES LEVEL 402 MG/DL (<150)
== END ==
LOC: M PLALAB 11:40
PROVIDERS: ATTEND Physician Assistant Medical
DX: E11.69 Type 2 diabetes mellitus with other specified complication (principal); E78.2 Mixed hyperlipidemia; E55.9 Vitamin D deficiency, unspecified; I10 Essential (primary) hypertension; G47.62 Sleep related leg cramps

== ENCOUNTER → 2022-09-04 | Outpatient (CLI) | payer OTHER ==
[2022-09-04 16:23] LABS: BASO # 0.1 10^3/uL (0.0-0.2); BASO % 0.5 % (0.0-1.0); EOS # 0.2 10^3/uL (0.0-0.5); EOS % 1.5 % (0.0-3.0); HEMATOCRIT 52.1 % (36.0-47.0); HEMOGLOBIN 17.6 g/dl (12.0-15.5); LYMPH # 3.8 10^3/uL (1.5-5.0); LYMPH % 37.1 % (24.0-44.0); MEAN CORPUSCULAR HEMOGLOBIN 30.7 pg (27.0-33.0); MEAN CORPUSCULAR HGB CONC 33.8 g/dl (32.0-36.5); MEAN CORPUSCULAR VOLUME 90.9 fl (80.0-96.0); MONO # 0.8 10^3/uL (0.0-0.8); NEUTROPHILS # 5.3 10^3/uL (1.5-8.5); NEUTROPHILS % 52.4 % (36.0-66.0); PLATELET COUNT, AUTOMATED 288 10^3/uL (150-450); RED BLOOD COUNT 5.73 10^6/uL (4.00-5.40); WHITE BLOOD COUNT 10.2 10^3/uL (4.0-10.0)
[2022-09-04 16:51] LABS: HEMOGLOBIN A1c 9.9 % (4.0-6.0)
[2022-09-04 16:52] LABS: ALBUMIN 3.5 G/DL (3.2-5.2); ALKALINE PHOSPHATASE 99 U/L (46-116); ALT/SGPT 35 U/L (7.0-40); AST/SGOT < 8 U/L (<34); BILIRUBIN,TOTAL 0.3 MG/DL (0.3-1.2); BLOOD UREA NITROGEN 14 MG/DL (9-23); CALCIUM LEVEL 9.2 MG/DL (8.5-10.1); CARBON DIOXIDE LEVEL 31 MMOL/L (20-31); CHLORIDE LEVEL 100 MMOL/L (98-107); CHOLESTEROL LEVEL 248 MG/DL (<200); CHOLESTEROL RISK RATIO 6.09 (<5); CREATININE FOR GFR 0.48 MG/DL (0.55-1.30); GLOMERULAR FILTRATION RATE > 60.0 (>58); GLUCOSE, FASTING 246 MG/DL (60-100); HDL CHOLESTEROL 40.7 MG/DL (>40); MAGNESIUM LEVEL 1.5 MG/DL (1.8-2.4); NON-HDL-C 207.3 MG/DL; POTASSIUM SERUM 4.5 MMOL/L (3.5-5.1); SODIUM LEVEL 137 MMOL/L (136-145); TOTAL PROTEIN 6.6 G/DL (5.7-8.2); TRIGLYCERIDES LEVEL 434 MG/DL (<150)
[2022-09-04 16:57] LABS: FREE T4 1.13 NG/DL (0.89-1.76)
[2022-09-04 17:04] LABS: PTH INTACT 31.3 PG/ML (18.5-88.0)
[2022-09-04 17:26] LABS: THYROID STIMULATING HORMONE 2.393 uIU/ML (0.55-4.78)
== END ==
LOC: M PLALAB 13:59
PROVIDERS: ATTEND Physician Assistant Medical
DX: E11.69 Type 2 diabetes mellitus with other specified complication (principal); E66.01 Morbid (severe) obesity due to excess calories; E55.9 Vitamin D deficiency, unspecified; K21.9 Gastro-esophageal reflux disease without esophagitis; E83.42 Hypomagnesemia; E78.2 Mixed hyperlipidemia

== ENCOUNTER → 2022-12-18 | Outpatient (CLI) | payer OTHER ==
[2022-12-18 13:59] LABS: BASO # 0.1 10^3/uL (0.0-0.2); BASO % 0.6 % (0.0-1.0); EOS # 0.2 10^3/uL (0.0-0.5); EOS % 2.4 % (0.0-3.0); HEMATOCRIT 50.8 % (36.0-47.0); HEMOGLOBIN 17.5 g/dl (12.0-15.5); LYMPH # 3.2 10^3/uL (1.5-5.0); LYMPH % 37.6 % (24.0-44.0); MEAN CORPUSCULAR HEMOGLOBIN 31.1 pg (27.0-33.0); MEAN CORPUSCULAR HGB CONC 34.4 g/dl (32.0-36.5); MEAN CORPUSCULAR VOLUME 90.4 fl (80.0-96.0); MONO # 0.8 10^3/uL (0.0-0.8); MONO % 8.9 % (2.0-8.0); NEUTROPHILS # 4.2 10^3/uL (1.5-8.5); PLATELET COUNT, AUTOMATED 225 10^3/uL (150-450); RED BLOOD COUNT 5.62 10^6/uL (4.00-5.40); WHITE BLOOD COUNT 8.5 10^3/uL (4.0-10.0)
[2022-12-18 14:01] LABS: CHOLESTEROL RISK RATIO 3.98 (<5); FERRITIN 261.6 NG/ML (7.3-270.7); HDL CHOLESTEROL 29.6 MG/DL (>40); LDL CHOLESTEROL 47.2 MG/DL (<100); NON-HDL-C 88.4 MG/DL
[2022-12-18 14:18] LABS: HEMOGLOBIN A1c 10.1 % (4.0-6.0)
== END ==
LOC: M PLALAB 11:17
PROVIDERS: ATTEND Physician Assistant Medical
DX: I10 Essential (primary) hypertension (principal); E11.69 Type 2 diabetes mellitus with other specified complication; E78.2 Mixed hyperlipidemia

== ENCOUNTER 2023-03-06 16:50 | Emergency (ER) | payer OTHER ==
[~2023-03-06] VITALS: Ht 160 cm; Wt 105.1 kg
[~2023-03-06 16:50] MED LIST changes: -GABA-283 PO; +GABA-284 PO
[2023-03-06 16:51] VITALS: TEMP 97
[2023-03-06 18:35] LABS: BASO % 0.4 % (0.0-1.0); EOS # 0.2 10^3/uL (0.0-0.5); EOS % 1.8 % (0.0-3.0); HEMATOCRIT 48.7 % (36.0-47.0); HEMOGLOBIN 17.3 g/dl (12.0-15.5); LYMPH # 3.6 10^3/uL (1.5-5.0); LYMPH % 39.4 % (24.0-44.0); MEAN CORPUSCULAR HEMOGLOBIN 31.6 pg (27.0-33.0); MEAN CORPUSCULAR HGB CONC 35.5 g/dl (32.0-36.5); MEAN CORPUSCULAR VOLUME 88.9 fl (80.0-96.0); MONO # 0.7 10^3/uL (0.0-0.8); MONO % 7.6 % (2.0-8.0); NEUTROPHILS # 4.6 10^3/uL (1.5-8.5); NEUTROPHILS % 50.4 % (36.0-66.0); PLATELET COUNT, AUTOMATED 256 10^3/uL (150-450); RED BLOOD COUNT 5.48 10^6/uL (4.00-5.40)
[2023-03-06] MEDS ORDERED: ASPIRIN 81MG CHEW TABLET PO ONE (18:35)
[2023-03-06 19:03] LABS: CK-MB VALUE MASS < 1.0 NG/ML (<3.6); LIPASE 42 U/L (12-53)
[2023-03-06 19:05] LABS: ALBUMIN 3.4 G/DL (3.2-5.2); ALKALINE PHOSPHATASE 108 U/L (46-116); ALT/SGPT 36 U/L (7.0-40); AST/SGOT 15 U/L (<34); BILIRUBIN,DIRECT < 0.1 MG/DL (<0.4); BILIRUBIN,TOTAL 0.3 MG/DL (0.3-1.2); BLOOD UREA NITROGEN 15 MG/DL (9-23); CARBON DIOXIDE LEVEL 29 MMOL/L (20-31); CHLORIDE LEVEL 106 MMOL/L (98-107); GLOMERULAR FILTRATION RATE > 60.0 (>51); GLUCOSE, FASTING 299 MG/DL (60-100); POTASSIUM SERUM 4.4 MMOL/L (3.5-5.1); SODIUM LEVEL 140 MMOL/L (136-145); TOTAL PROTEIN 6.6 G/DL (5.7-8.2)
[2023-03-06 19:06] LABS: FREE T4 1.04 NG/DL (0.89-1.76); THYROID STIMULATING HORMONE 2.552 uIU/ML (0.55-4.78)
[2023-03-06 19:08] LABS: CPK CREATINE PHOSPHOKINASE 54 U/L (34-145); MB/CK RELATIVE INDEX 1.85 (< OR =4)
[2023-03-06 19:53] LABS: CK-MB VALUE MASS < 1.0 NG/ML (<3.6)
[2023-03-06 19:55] LABS: CPK CREATINE PHOSPHOKINASE 49 U/L (34-145); MB/CK RELATIVE INDEX 2.04 (< OR =4)
[2023-03-06 21:00] VITALS: BP 147/76
[2023-03-06 21:02] VITALS: O2SAT 96
[2023-03-06 21:12] LABS: CK-MB VALUE MASS < 1.0 NG/ML (<3.6)
[2023-03-06 21:14] LABS: CPK CREATINE PHOSPHOKINASE 48 U/L (34-145); MB/CK RELATIVE INDEX 2.08 (< OR =4)
== END 2023-03-06 21:11 | disposition home or self-care (01) ==
LOC: M ED 16:50
DX: R07.9 Chest pain, unspecified (principal); I45.10 Unspecified right bundle-branch block; E78.5 Hyperlipidemia, unspecified; K21.9 Gastro-esophageal reflux disease without esophagitis; I25.2 Old myocardial infarction; F17.200 Nicotine dependence, unspecified, uncomplicated; Z86.79 Personal history of other diseases of the circulatory system; Z88.1 Allergy status to other antibiotic agents; Z88.8 Allergy status to other drugs, medicaments and biological substances; Z79.52 Long term (current) use of systemic steroids; Z79.82 Long term (current) use of aspirin; Z79.811 Long term (current) use of aromatase inhibitors; Z79.4 Long term (current) use of insulin; Z79.899 Other long term (current) drug therapy

== ENCOUNTER → 2023-03-14 | Outpatient (REF) | payer OTHER ==
[2023-03-14 14:13] LABS: CREATININE, URINE 124.4 MG/DL
[2023-03-14 14:26] LABS: MAU/CREAT RATIO 454.9 MCG/MG (0.0-30.0)
== END ==
LOC: M SFHCPLAZ 13:06
PROVIDERS: ATTEND Physician Assistant Medical
DX: E11.69 Type 2 diabetes mellitus with other specified complication (principal)

== ENCOUNTER → 2023-07-18 | Outpatient (CLI) | payer OTHER ==
[2023-07-18 15:03] LABS: BASO % 0.4 % (0.0-1.0); EOS # 0.1 10^3/uL (0.0-0.5); EOS % 1.3 % (0.0-3.0); HEMATOCRIT 50.2 % (36.0-47.0); HEMOGLOBIN 17.1 g/dl (12.0-15.5); LYMPH % 37.4 % (24.0-44.0); MEAN CORPUSCULAR HEMOGLOBIN 31.6 pg (27.0-33.0); MEAN CORPUSCULAR HGB CONC 34.1 g/dl (32.0-36.5); MEAN CORPUSCULAR VOLUME 92.8 fl (80.0-96.0); MONO # 0.8 10^3/uL (0.0-0.8); MONO % 7.4 % (2.0-8.0); NEUTROPHILS # 5.7 10^3/uL (1.5-8.5); NEUTROPHILS % 52.9 % (36.0-66.0); PLATELET COUNT, AUTOMATED 293 10^3/uL (150-450); RED BLOOD COUNT 5.41 10^6/uL (4.00-5.40); WHITE BLOOD COUNT 10.7 10^3/uL (4.0-10.0)
[2023-07-18 15:19] LABS: HEMOGLOBIN A1c 8.7 % (4.0-6.0)
[2023-07-18 15:28] LABS: ALBUMIN 3.3 G/DL (3.2-5.2); ALKALINE PHOSPHATASE 100 U/L (46-116); ALT/SGPT 30 U/L (7.0-40); AST/SGOT 11 U/L (<34); BILIRUBIN,TOTAL 0.4 MG/DL (0.3-1.2); BLOOD UREA NITROGEN 17 MG/DL (9-23); CALCIUM LEVEL 8.8 MG/DL (8.5-10.1); CARBON DIOXIDE LEVEL 31 MMOL/L (20-31); CHLORIDE LEVEL 105 MMOL/L (98-107); CHOLESTEROL LEVEL 229 MG/DL (<200); CHOLESTEROL RISK RATIO 6.22 (<5); CREATININE FOR GFR 0.51 MG/DL (0.55-1.30); GLOMERULAR FILTRATION RATE > 60.0 (>51); GLUCOSE, FASTING 200 MG/DL (60-100); HDL CHOLESTEROL 36.8 MG/DL (>40); LDL CHOLESTEROL 141.4 MG/DL (<100); NON-HDL-C 192.2 MG/DL; POTASSIUM SERUM 4.5 MMOL/L (3.5-5.1); SODIUM LEVEL 137 MMOL/L (136-145); TOTAL PROTEIN 6.4 G/DL (5.7-8.2); TRIGLYCERIDES LEVEL 254 MG/DL (<150)
[2023-07-18 15:30] LABS: TOTAL 25(OH) VITAMIN D 28.6 NG/ML (20.0-100.0)
== END ==
LOC: M PLALAB 10:13
PROVIDERS: ATTEND Physician Assistant Medical
DX: E11.69 Type 2 diabetes mellitus with other specified complication (principal); I10 Essential (primary) hypertension; E78.2 Mixed hyperlipidemia; E55.9 Vitamin D deficiency, unspecified

== ENCOUNTER → 2023-07-29 | Outpatient (CLI) | payer OTHER | LOC: M PLAIMG 09:03 | PROVIDERS: ATTEND Physician Assistant Medical | DX: R10.32 Left lower quadrant pain (principal); Z90.49 Acquired absence of other specified parts of digestive tract; R16.0 Hepatomegaly, not elsewhere classified; N20.0 Calculus of kidney; I70.0 Atherosclerosis of aorta; R93.89 Abnormal findings on diagnostic imaging of other specified body structures ==

== ENCOUNTER → 2023-08-07 | Outpatient (CLI) | payer OTHER ==
[2023-08-07 14:19] LABS: BASO % 0.3 % (0.0-1.0); EOS # 0.2 10^3/uL (0.0-0.5); EOS % 2.1 % (0.0-3.0); HEMATOCRIT 46.3 % (36.0-47.0); HEMOGLOBIN 15.9 g/dl (12.0-15.5); LYMPH # 3.4 10^3/uL (1.5-5.0); LYMPH % 36.9 % (24.0-44.0); MEAN CORPUSCULAR HEMOGLOBIN 31.6 pg (27.0-33.0); MEAN CORPUSCULAR HGB CONC 34.3 g/dl (32.0-36.5); MONO # 0.8 10^3/uL (0.0-0.8); MONO % 8.2 % (2.0-8.0); NEUTROPHILS # 4.8 10^3/uL (1.5-8.5); NEUTROPHILS % 52.1 % (36.0-66.0); PLATELET COUNT, AUTOMATED 247 10^3/uL (150-450); RED BLOOD COUNT 5.03 10^6/uL (4.00-5.40); WHITE BLOOD COUNT 9.2 10^3/uL (4.0-10.0)
[2023-08-07 14:25] LABS: ERYTHROCYTE SEDIMENTATION RATE 18 mm/hr (0-30)
[2023-08-07 14:44] LABS: C REACTIVE PROTEIN QUANTITATIV 0.4 MG/DL (<1.0)
== END ==
LOC: M PLALAB 10:38
PROVIDERS: ATTEND Physician Assistant Medical
DX: R10.32 Left lower quadrant pain (principal)

== ENCOUNTER → 2023-09-08 | Outpatient (CLI) | payer OTHER ==
[~2023-09-08] MED LIST changes: -CLIN75CA TD; +CLIN75CA2 TD; +RIFA300C62 PO; -RIFA300C8 PO
[2023-09-08 10:22] LABS: BLOOD UREA NITROGEN 13 MG/DL (9-23); CHOLESTEROL LEVEL 92 MG/DL (<200); CHOLESTEROL RISK RATIO 3.42 (<5); CREATININE FOR GFR 0.52 MG/DL (0.55-1.30); GLOMERULAR FILTRATION RATE > 60.0 (>51); HDL CHOLESTEROL 26.9 MG/DL (>40); LDL CHOLESTEROL 38.7 MG/DL (<100); NON-HDL-C 65.1 MG/DL; TRIGLYCERIDES LEVEL 132 MG/DL (<150)
== END ==
LOC: M LAB 09:18
PROVIDERS: ATTEND Physician Assistant Medical
DX: E78.2 Mixed hyperlipidemia (principal); I10 Essential (primary) hypertension

== ENCOUNTER → 2023-09-10 | Outpatient (CLI) | payer OTHER ==
[~2023-09-10] MED LIST changes: +ISOVUE-370 76% 100ML VIAL As Ordered ONE
== END ==
LOC: M RAD 08:19
PROVIDERS: ATTEND Physician Assistant Medical
DX: I70.212 Atherosclerosis of native arteries of extremities with intermittent claudication, left leg (principal); I70.201 Unspecified atherosclerosis of native arteries of extremities, right leg; I70.0 Atherosclerosis of aorta; R16.0 Hepatomegaly, not elsewhere classified; I83.90 Asymptomatic varicose veins of unspecified lower extremity
CPT/HCPCS: 75635; Q9967

== ENCOUNTER → 2023-10-17 | Outpatient (CLI) | payer OTHER ==
[~2023-10-17] MED LIST changes: -ISOVUE-370 76% 100ML VIAL As Ordered ONE
[2023-10-17 14:20] LABS: BASO # 0.1 10^3/uL (0.0-0.2); BASO % 0.5 % (0.0-1.0); EOS # 0.2 10^3/uL (0.0-0.5); EOS % 1.8 % (0.0-3.0); HEMATOCRIT 42.7 % (36.0-47.0); HEMOGLOBIN 14.6 g/dl (12.0-15.5); LYMPH % 30.5 % (24.0-44.0); MEAN CORPUSCULAR HEMOGLOBIN 31.5 pg (27.0-33.0); MEAN CORPUSCULAR HGB CONC 34.2 g/dl (32.0-36.5); MEAN CORPUSCULAR VOLUME 92.2 fl (80.0-96.0); MONO # 0.7 10^3/uL (0.0-0.8); MONO % 7.3 % (2.0-8.0); NEUTROPHILS # 5.7 10^3/uL (1.5-8.5); PLATELET COUNT, AUTOMATED 324 10^3/uL (150-450); RED BLOOD COUNT 4.63 10^6/uL (4.00-5.40); WHITE BLOOD COUNT 9.7 10^3/uL (4.0-10.0)
[2023-10-17 14:42] LABS: HEMOGLOBIN A1c 7.4 % (4.0-6.0)
== END ==
LOC: M PLALAB 09:45
PROVIDERS: ATTEND Physician Assistant Medical
DX: I10 Essential (primary) hypertension (principal); E11.69 Type 2 diabetes mellitus with other specified complication

== ENCOUNTER → 2023-11-13 | Outpatient (REF) | LOC: M PLAIMG 12:22 | PROVIDERS: ATTEND Internal Medicine | DX: R52 Pain, unspecified (principal) ==

== ENCOUNTER → 2024-03-11 | Outpatient (CLI) | payer OTHER ==
[~2024-03-11] MED LIST changes: +GABA-1172; +GABA-1172 PO; -GABA-282; -GABA-282 PO
[2024-03-11 13:02] LABS: BASO # 0.1 10^3/uL (0.0-0.2); BASO % 0.5 % (0.0-1.0); EOS # 0.1 10^3/uL (0.0-0.5); EOS % 1.3 % (0.0-3.0); HEMATOCRIT 50.2 % (36.0-47.0); HEMOGLOBIN 16.8 g/dl (12.0-15.5); LYMPH # 3.3 10^3/uL (1.5-5.0); LYMPH % 30.1 % (24.0-44.0); MEAN CORPUSCULAR HEMOGLOBIN 31.2 pg (27.0-33.0); MEAN CORPUSCULAR HGB CONC 33.5 g/dl (32.0-36.5); MEAN CORPUSCULAR VOLUME 93.3 fl (80.0-96.0); MONO # 0.9 10^3/uL (0.0-0.8); NEUTROPHILS # 6.6 10^3/uL (1.5-8.5); NEUTROPHILS % 59.6 % (36.0-66.0); PLATELET COUNT, AUTOMATED 335 10^3/uL (150-450); RED BLOOD COUNT 5.38 10^6/uL (4.00-5.40); WHITE BLOOD COUNT 11.1 10^3/uL (4.0-10.0)
[2024-03-11 13:15] LABS: ALBUMIN 3.5 G/DL (3.2-5.2); ALKALINE PHOSPHATASE 125 U/L (46-116); ALT/SGPT 58 U/L (7.0-40); AST/SGOT 32 U/L (<34); BILIRUBIN,TOTAL 0.3 MG/DL (0.3-1.2); BLOOD UREA NITROGEN 11 MG/DL (9-23); CALCIUM LEVEL 9.2 MG/DL (8.5-10.1); CARBON DIOXIDE LEVEL 29 MMOL/L (20-31); CHLORIDE LEVEL 100 MMOL/L (98-107); CREATININE FOR GFR 0.48 MG/DL (0.55-1.30); GLOMERULAR FILTRATION RATE > 60.0 (>51); GLUCOSE, FASTING 258 MG/DL (60-100); POTASSIUM SERUM 4.3 MMOL/L (3.5-5.1); SODIUM LEVEL 137 MMOL/L (136-145)
[2024-03-11 13:30] LABS: HEMOGLOBIN A1c 10.3 % (4.0-6.0)
== END ==
LOC: M PLALAB 09:37
PROVIDERS: ATTEND Physician Assistant Medical
DX: I10 Essential (primary) hypertension (principal); E11.69 Type 2 diabetes mellitus with other specified complication

== ENCOUNTER → 2024-03-27 | Outpatient (CLI) | payer OTHER | LOC: M WHC 06:53 | PROVIDERS: ATTEND Physician Assistant Medical | DX: Z12.31 Encounter for screening mammogram for malignant neoplasm of breast (principal) ==

== ENCOUNTER → 2024-06-01 | Outpatient (CLI) | payer OTHER ==
[2024-06-01 15:40] LABS: HEMOGLOBIN A1c 5.8 % (4.0-6.0)
[2024-06-01 15:48] LABS: ALBUMIN 3.4 G/DL (3.2-5.2); ALKALINE PHOSPHATASE 106 U/L (35-104); ALT/SGPT 29 U/L (7.0-40); AST/SGOT 15 U/L (<34); BILIRUBIN,TOTAL 0.4 MG/DL (0.3-1.2); BLOOD UREA NITROGEN 15 MG/DL (9-23); CALCIUM LEVEL 9.5 MG/DL (8.5-10.1); CARBON DIOXIDE LEVEL 30 MMOL/L (20-31); CHLORIDE LEVEL 103 MMOL/L (98-107); CREATININE FOR GFR 0.52 MG/DL (0.55-1.30); GLOMERULAR FILTRATION RATE > 60.0 (>51); GLUCOSE, FASTING 94 MG/DL (60-100); POTASSIUM SERUM 4.6 MMOL/L (3.5-5.1); SODIUM LEVEL 141 MMOL/L (136-145); TOTAL PROTEIN 6.9 G/DL (5.7-8.2)
[2024-06-01 15:50] LABS: FOLATE 8.95 NG/ML (>5.4)
[2024-06-01 15:51] LABS: VITAMIN B12 LEVEL 503 PG/ML (211-911)
== END ==
LOC: M PLALAB 12:32
PROVIDERS: ATTEND Physician Assistant Medical
DX: E11.42 Type 2 diabetes mellitus with diabetic polyneuropathy (principal); M16.12 Unilateral primary osteoarthritis, left hip; E11.69 Type 2 diabetes mellitus with other specified complication

== ENCOUNTER → 2024-09-09 | Outpatient (CLI) | payer OTHER ==
[~2024-09-09] MED LIST changes: +CIPR0.3S37; +INSU100I24; +PREDOPD; +ROPI0.5T33 PO
[2024-09-09 12:59] LABS: HEMATOCRIT 44.1 % (36.0-47.0); MEAN CORPUSCULAR HEMOGLOBIN 30.9 pg (27.0-33.0); MEAN CORPUSCULAR VOLUME 90.9 fl (80.0-96.0); PLATELET COUNT, AUTOMATED 285 10^3/uL (150-450); RED BLOOD COUNT 4.85 10^6/uL (4.00-5.40); WHITE BLOOD COUNT 9.4 10^3/uL (4.0-10.0)
[2024-09-09 13:03] LABS: ALBUMIN 3.2 G/DL (3.2-5.2); ALKALINE PHOSPHATASE 73 U/L (35-104); ALT/SGPT 34 U/L (7.0-40); AST/SGOT 15 U/L (<34); BILIRUBIN,TOTAL 0.3 MG/DL (0.3-1.2); BLOOD UREA NITROGEN 14 MG/DL (9-23); CALCIUM LEVEL 9.1 MG/DL (8.5-10.1); CARBON DIOXIDE LEVEL 30 MMOL/L (20-31); CHLORIDE LEVEL 106 MMOL/L (98-107); CREATININE FOR GFR 0.51 MG/DL (0.55-1.30); GLOMERULAR FILTRATION RATE > 90.0 (>51); GLUCOSE, FASTING 64 MG/DL (60-100); POTASSIUM SERUM 4.8 MMOL/L (3.5-5.1); SODIUM LEVEL 139 MMOL/L (136-145); TOTAL PROTEIN 6.2 G/DL (5.7-8.2)
[2024-09-09 13:04] LABS: INR 0.84; PARTIAL THROMBOPLASTIN TIME 26.7 SECONDS (24.8-34.2); PROTHROMBIN TIME 11.8 SECONDS (12.5-14.5)
[2024-09-09 13:46] LABS: ATYPICAL LYMPH 5 % (0-5); EOSINOPHILS 2 % (0-3); LYMPHOCYTES 30 % (16-44); MONOCYTES 8 % (0-5); NEUTROPHILS 55 % (28-66)
[2024-09-09 13:47] LABS: PLATELET ESTIMATE NORMAL (NORMAL)
== END ==
LOC: M PLALAB 10:48
PROVIDERS: ATTEND Physician Assistant Medical
DX: Z01.818 Encounter for other preprocedural examination (principal)

== ENCOUNTER 2024-09-10 06:12 | Day surgery (SDC) | payer OTHER ==
[~2024-09-10] VITALS: Ht 160 cm; Wt 117.5 kg
[~2024-09-10 06:12] MED LIST changes: -CIPR0.3S37; +MIDAZOLAM INJ 2MG/2ML VIAL As Ordered ONE; -PREDOPD; +fentaNYL 100 MCG/2 ML INJECTION As Ordered ONE
[2024-09-10] MEDS ORDERED: LR 1,000 ML IV SCH (06:35)
[2024-09-10] MEDS ORDERED: PREDOPD (06:57)
[2024-09-10] MEDS ORDERED: CIPR0.3S37 (06:57)
[2024-09-10] MEDS: CEFUROXIME 1MG/0.1ML INTRACAMERAL INJ As Ordered ONE (07:48)
[2024-09-10] MEDS: TOBRAMYCIN 80MG/2ML VIAL As Ordered ONE (07:49)
[2024-09-10] MEDS: BSS IRRIG/VANCO(10MG)/TOBRA(5MG)/EPINEPH(1:1000-0.5CC)500ML BAG-ORONLY As Ordered ONE (07:49)
[2024-09-10] MEDS: LIDOCAINE 3.5 % 1ML OPHTH TOPICAL GEL OU ONE (07:50)
[2024-09-10] MEDS: mitoMYcin 0.2 MG/VIAL KIT FOR OPHTHALMIC USE As Ordered ONE (07:50)
[2024-09-10] MEDS: LIDOCAINE 1% SDV 5ML VIAL As Ordered ONE (07:50)
[2024-09-10] MEDS: TOBRADEX OPHTH OINT 3.5 GM As Ordered ONE (07:50)
[2024-09-10 08:08] VITALS: BP 125/86; TEMP 97.8; O2SAT 94
== END 2024-09-10 08:21 | disposition home or self-care (01) ==
LOC: M SDC 06:12
PROVIDERS: ATTEND Ophthalmology
DX: H40.1110 Primary open-angle glaucoma, right eye, stage unspecified (principal); I25.10 Atherosclerotic heart disease of native coronary artery without angina pectoris; I25.2 Old myocardial infarction; E78.5 Hyperlipidemia, unspecified; E11.9 Type 2 diabetes mellitus without complications; K21.9 Gastro-esophageal reflux disease without esophagitis; Z98.61 Coronary angioplasty status; Z79.4 Long term (current) use of insulin; Z79.84 Long term (current) use of oral hypoglycemic drugs; Z79.899 Other long term (current) drug therapy; Z88.1 Allergy status to other antibiotic agents; Z88.8 Allergy status to other drugs, medicaments and biological substances; F41.9 Anxiety disorder, unspecified; F32.A Depression, unspecified; G43.909 Migraine, unspecified, not intractable, without status migrainosus; Z79.51 Long term (current) use of inhaled steroids; G47.33 Obstructive sleep apnea (adult) (pediatric)
CPT/HCPCS: 66183; C1783; J2250; J3010; J7315

== ENCOUNTER → 2024-09-29 | Outpatient (CLI) | payer OTHER ==
[~2024-09-29] MED LIST changes: +CIPR0.3S37; -MIDAZOLAM INJ 2MG/2ML VIAL As Ordered ONE; +PREDOPD; -TRIA25CR TOP; +TRIA80CR15 TOP; -fentaNYL 100 MCG/2 ML INJECTION As Ordered ONE
[2024-09-29 14:42] LABS: HEMOGLOBIN A1c 6.1 % (4.0-6.0)
[2024-09-29 14:47] LABS: CHOLESTEROL RISK RATIO 4.38 (<5); HDL CHOLESTEROL 38.3 MG/DL (>40); LDL CHOLESTEROL 96.5 MG/DL (<100); NON-HDL-C 129.7 MG/DL
== END ==
LOC: M PLALAB 10:37
PROVIDERS: ATTEND Physician Assistant Medical
DX: E11.69 Type 2 diabetes mellitus with other specified complication (principal); E78.2 Mixed hyperlipidemia

== ENCOUNTER → 2024-09-29 | Outpatient (REF) | payer OTHER | LOC: M SFHCPLAZ 10:43 | PROVIDERS: ATTEND Physician Assistant Medical | DX: E11.69 Type 2 diabetes mellitus with other specified complication (principal); E78.2 Mixed hyperlipidemia ==

== ENCOUNTER → 2024-09-30 | Outpatient (REF) | payer OTHER ==
[2024-10-02 14:08] LABS: QuantiFERON-TB Gold Plus NEGATIVE (NEGATIVE)
== END ==
LOC: M SFHCADAM 10:42
PROVIDERS: ATTEND Nurse Practitioner Family
DX: L73.2 Hidradenitis suppurativa (principal)

== ENCOUNTER 2024-12-10 11:10 | Day surgery (SDC) | payer OTHER ==
[~2024-12-10] VITALS: Ht 157.5 cm; Wt 114.3 kg
[~2024-12-10 11:10] MED LIST changes: -CLOP75TA2; +CLOP75TA2 PO; +LORA-1164 PO; -LORA-622 PO
[2024-12-10] MEDS: LIDOCAINE 3.5% 1 ML OPHTH TOPICAL GEL OU ONE (12:42)
[2024-12-10] MEDS ORDERED: MIDAZOLAM INJ 2 MG/2 ML VIAL As Ordered ONE (13:09)
[2024-12-10] MEDS: LIDOCAINE 1% SDV 5 ML VIAL As Ordered ONE (13:38)
[2024-12-10 13:55] VITALS: BP 129/68; TEMP 97.3; O2SAT 96
[2024-12-10] MEDS: TOBRADEX OPHTH OINT 3.5 GM As Ordered ONE (13:55)
== END 2024-12-10 14:14 | disposition home or self-care (01) ==
LOC: M SDC 11:10
PROVIDERS: ATTEND Ophthalmology
DX: H40.812 Glaucoma with increased episcleral venous pressure, left eye (principal); I25.10 Atherosclerotic heart disease of native coronary artery without angina pectoris; I10 Essential (primary) hypertension; E78.5 Hyperlipidemia, unspecified; G47.33 Obstructive sleep apnea (adult) (pediatric); Z79.4 Long term (current) use of insulin; E11.9 Type 2 diabetes mellitus without complications; K21.9 Gastro-esophageal reflux disease without esophagitis; F17.210 Nicotine dependence, cigarettes, uncomplicated; Z98.61 Coronary angioplasty status; F32.A Depression, unspecified; Z79.02 Long term (current) use of antithrombotics/antiplatelets; Z79.84 Long term (current) use of oral hypoglycemic drugs; J45.909 Unspecified asthma, uncomplicated; Z88.1 Allergy status to other antibiotic agents; Z88.8 Allergy status to other drugs, medicaments and biological substances
CPT/HCPCS: 66183; C1783; J2250; J3010; J7315

== ENCOUNTER → 2024-12-18 | Outpatient (CLI) | payer OTHER | LOC: M WHC 08:45 | PROVIDERS: ATTEND Nurse Practitioner Family | DX: R10.2 Pelvic and perineal pain (principal) ==

== ENCOUNTER → 2025-02-16 | Outpatient (CLI) | payer OTHER | LOC: M RAD 12:47 | PROVIDERS: ATTEND Physician Assistant Medical | DX: R60.0 Localized edema (principal) ==

== ENCOUNTER → 2025-03-31 | Outpatient (REF) | payer OTHER | LOC: M SFHCWAGY 15:24 | PROVIDERS: ATTEND Nurse Practitioner Family | DX: Z12.4 Encounter for screening for malignant neoplasm of cervix (principal) ==

== ENCOUNTER → 2025-03-31 | Outpatient (CLI) | payer OTHER | LOC: M WHC 10:42 | PROVIDERS: ATTEND Nurse Practitioner Family | DX: Z12.31 Encounter for screening mammogram for malignant neoplasm of breast (principal); R92.323 Mammographic fibroglandular density, bilateral breasts ==